=== PATIENT | female | born 1955 | race Caucasian/White ===

== ENCOUNTER → 2021-07-10 09:54 | Outpatient (CLI) | payer OTHER, SELFPAY ==
--- NOTE | ~2021-07-10 | MM_ITS ---
EXAMINATION: MM screening carmita BI w annita HISTORY: Screening TECHNIQUE: Craniocaudal and mediolateral oblique 3-D tomosynthesis images were obtained and synthetic 2-D images were generated. CAD analysis was submitted and interpreted. COMPARISON: No prior mammogram is available for comparison at this institution. BREAST PARENCHYMAL COMPOSITION: The breasts are heterogenously dense, which may obscure small masses FINDINGS: There is no evidence of suspicious mass, calcification, or architectural distortion to sugg est malignancy in either breast. There has been no suspicious interval change. IMPRESSION: 1. No mammographic evidence of malignancy. 2. Recommend routine screening mammography in one year. BI-RADS Category 1: Negative Reviewed, dictated and finalized at location A.
--- NOTE | ~2021-07-10 | DEXA_ITS ---
Bone Density Report Name: Camila Layton Age: 66 Sex: Female Ethnicity: White Date of : 1955 Indication: postmenopausal; screening for osteoporosis; Referring Provider: CLARY, AMANDA May Study: Bone densitometry was performed. Exam Date: July 10, 2021 Accession number: [id number] Bone Density: Region BMD T-score Z-score Classification AP Spine (L1, L2) 1.065 0.8 2.4 Normal Femoral Neck (Left) 0.582 -2.4 -0.9 Osteopenia Total Hip (Left) 0.660 -2.3 -1.1 Osteopenia Femoral Neck (Right) 0.604 -2.2 -0.7 Osteopenia Total Hip (Right) 0.656 -2.3 -1.2 Osteopenia Total Hip Mean 0.658 -2.3 -1.2 Osteopenia World Health Organization criteria for BMD impression classify patients as: Normal (T-score at or above -1.0), Osteopenia (T-score between -1.0 and -2.5), or Osteoporosis (T-score at or below -2.5). 10-year Fracture Risk(1): Major Osteoporotic Fracture 12% Hip Fracture 3.6% Reported Risk Factors: [place] (), Neck BMD=0.582, BMI=29.5, smoking (1) FRAX(R) Version 3.08. Fracture probability calculated for an untreated patient. Fracture probability may be lower if the patient has received treatment. Clinical Information Provided by Patient: Smokes Has used the following medications: Vitamin D Patient maximum height was 60.5 Menopause Age: 40 No regular weight bearing exercise Does not regularly consume dairy products Drinks caffeinated beverages Onset of menses at age 11 Number of children 0 Impression: The patient has low bone mass, based on the Left Femoral Neck T-score. The patient has an estimated ten-year risk of hip fracture of 3.6% and an estimated ten-year risk of major fracture of 12%, based on the WHO FRAX algorithm. The patient has risk factors, including: smoking. Discussion: BONE DENSITY IS LOW AT ONE OR MORE SKELETAL SITES. THE PATIENT'S BMD AND CLINICAL RISK FACTORS CONTRIBUTE TO THIS PATIENT'S INCREASED RISK OF FRACTURE. This patient's lowest T-score is low at one or more skeletal sites. It meets the World Health Organization's (WHO) criteria for ?low bone mass? (T-score between -1.0 and -2.5). The patient's 10-year risk of hip fracture as calculated by FRAX exceeds the threshold where pharmacological therapy is recommended by the National Osteoporosis Foundation (NOF). However, all treatment decisions require clinical judgment and consideration of individual patient factors, including patient preferences, comorbidities, previous drug use, risk factors not captured in the FRAX model (e.g., frailty, falls, vitamin D deficiency, increased bone turnover, interval significant decline in bone density) and possible under or overestimation of fracture risk by FRAX. The patient should follow a healthful lifestyle (good nutrition with adequate calcium and vitamin D, and appropriate
== END ==
PROVIDERS: PCP Internal Medicine; Visit Provider Internal Medicine
DX: Z12.31 Encounter for screening mammogram for malignant neoplasm of breast (principal); Z78.0 Asymptomatic menopausal state; M85.89 Other specified disorders of bone density and structure, multiple sites
CPT/HCPCS: 77063; 77067; 77080

== ENCOUNTER 2021-08-19 12:21 | Outpatient (CLI) | payer OTHER, SELFPAY ==
--- NOTE | ~2021-08-19 | US_ITS ---
EXAMINATION: US carotid duplex BI DATE: 08/19/2021 13:03 INDICATION: Chronic artery stenosis post prior left carotid endarterectomy. TECHNIQUE: Grayscale, color Doppler, and pulsed Doppler images of the cervical carotid arteries were obtained. The degree of vessel stenosis is placed in one of the following categories: normal, <50%, 5 0-69%, >=70% but less than near-occlusion, near-occlusion, or total occlusion. Note that percent sten osis relative to normal distal artery lumen diameter is indirectly measured from velocity measurement s as described by Leo, et al. Radiology 2003; 229:340-346. COMPARISON: None. FINDINGS: RIGHT: The right common carotid artery (CCA) peak systolic velocity (PSV) is 93 cm/s with high resistance wa veform. The right internal carotid artery (ICA) remains occluded with no internal flow on color Doppl er. The external carotid artery (ECA) PSV is 168 cm/s. There is antegrade flow in the right vertebral artery. LEFT: The left CCA PSV is 98 cm/s. The left ICA PSV is 152 cm/s. The left ICA end-diastolic velocity (EDV) is 31 cm/s. The left ICA/CCA PSV ratio is 1.6. Grayscale and color Doppler images yield an estimate o f 50-69% diameter reduction from plaque in the ICA. The ECA PSV is 152 cm/s. There is antegrade flow in the left vertebral artery. IMPRESSION: 1. 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 2. 50-69% stenosis in the left internal carotid artery. Reviewed, dictated and finalized at location A.
== END 2021-08-19 12:22 | disposition home or self-care (01) ==
PROVIDERS: PCP Internal Medicine; Visit Provider Internal Medicine
DX: I65.23 Occlusion and stenosis of bilateral carotid arteries (principal)
CPT/HCPCS: 93880

== ENCOUNTER 2023-04-16 11:16 | Outpatient (CLI) | payer MEDICARE, OTHER, SELFPAY ==
[2023-04-16 11:51] LABS: Basophils Absolute Auto 0.1 K/mm3 (0.0-0.1); Basophils Percent Auto 0.9 % (0.2-1.2); Eosinophils Absolute Auto 0.7 K/mm3 (0-0.3); Hematocrit 40.5 % (37.0-47.0); Hemoglobin 12.8 g/dL (12.0-15.0); Immature Granulocyte Absolute 0.01 K/mm3 (0.00-0.031); Immature Granulocyte Percent A 0.2 % (0-0.5); Lymphocytes Absolute Auto 1.02 K/mm3 (0.9-3.2); Lymphocytes Percent Auto 18.4 % (18.3-44.2); Mean Corpuscular HGB Conc 31.6 g/dl (32-36); Mean Corpuscular Hemoglobin 29.8 pg (26-34); Mean Corpuscular Volume 94.4 fl (80-100); Mean Platelet Volume 10.1 fl (7.4-10.4); Monocytes Absolute Auto 0.4 K/mm3 (0.1-0.6); Neutrophils Absolute Auto 3.4 K/mm3 (1.3-6.7); Neutrophils Percent Auto 60.5 % (45.5-73.1); Platelet Count Result 185 k/mm3 (150-375); Red Blood Count 4.29 M/mm3 (4.2-5.4); Red Cell Distribution Width 12.5 % (11.5-14.5); White Blood Count 5.5 K/mm3 (4.5-10.0)
[2023-04-16 12:36] LABS: Iron 42 ug/dL (37-170)
[2023-04-16 12:37] LABS: Alanine Aminotransferase 13 U/L (6-35); Albumin Level 4.3 g/dL (3.5-5.1); Alkaline Phosphatase 74 U/L (38-126); Anion Gap 13 mmol/L (8-16); Aspartate Amino Transferase 17 U/L (14-36); Bilirubin,Total 0.3 mg/dL (0.2-1.3); Blood Urea Nitrogen 61 mg/dL (7-17); Calcium 8.4 mg/dL (8.4-10.2); Carbon Dioxide 22 mmol/L (22-30); Chloride 103 mmol/L (98-107); Estimated Glomerular Filt Rate 10; Glucose 91 mg/dL (65-110); Potassium 4.3 mmol/L (3.4-5.0); Sodium 138 mmol/L (137-145)
[2023-04-16 12:51] LABS: Percent Iron Saturation 12 % (20-50)
[2023-04-21 08:51] LABS: Methylmalonic Acid 249 nmol/L (87-318)
== END 2023-04-16 11:17 | disposition home or self-care (01) ==
LOC: ANHLAB 11:20
PROVIDERS: Visit Provider Internal Medicine Hematology & Oncology
DX: D64.9 Anemia, unspecified (principal)
CPT/HCPCS: 36415; 80053; 82728; 83540; 83550; 83921; 85025

== ENCOUNTER 2023-05-01 08:53 | Outpatient (CLI) | payer MEDICARE, OTHER, SELFPAY ==
[2023-05-01 09:09] LABS: Hematocrit 23.5 % (37.0-47.0); Hemoglobin 7.5 g/dL (12.0-15.0); Mean Corpuscular HGB Conc 31.9 g/dl (32-36); Mean Corpuscular Hemoglobin 29.9 pg (26-34); Mean Corpuscular Volume 93.6 fl (80-100); Platelet Count Result 272 k/mm3 (150-375); Red Blood Count 2.51 M/mm3 (4.2-5.4); Red Cell Distribution Width 12.7 % (11.5-14.5); White Blood Count 12.1 K/mm3 (4.5-10.0)
== END 2023-05-01 08:54 | disposition home or self-care (01) ==
LOC: ANHLAB 08:55
PROVIDERS: PCP Internal Medicine; Visit Provider Internal Medicine Hematology & Oncology
DX: D64.9 Anemia, unspecified (principal)
CPT/HCPCS: 36415; 85027

== ENCOUNTER 2023-12-08 03:32 | Day surgery (SDC) | payer MEDICARE, OTHER, SELFPAY ==
[2023-11-24 11:19] VITALS: BMI 25.0
--- NOTE | 2023-12-04 10:44 | SUR.PREOP ---
Patient called regarding upcoming procedure. Voicemail message left regarding appointment times.
[2023-12-08 08:51] VITALS: BP 177/54; PULSE 63; RESP 17; TEMP 36.3; O2SAT 99; BMI 25.5
[2023-12-08] MEDS: SODIUM CHLORIDE 0.9% IV 500 ML BAG IRRIGATION (09:01)
--- NOTE | 2023-12-08 09:07 | WPDANESEPPF ---
Anes - Initial Pre Proc Eval Procedure: Operation Date: 12/08/23 10:00 Proposed Procedures p Esophagogastroduodenoscopy - Paramjit Gustafson MD Date/Time: 12/08/23 09:07 Surgeon: Paramjit Gustafson MD Pre Op Diagnosis: Gastrointestinal hemorrhage,unspecified Patient Data Age: 68 Gender: F Height: 1.52 m Weight: 59.3 kg Last Vital Signs Temp 97.3 F L 12/08/23 08:51 Pulse 63 12/08/23 08:51 Resp 17 12/08/23 08:51 BP 177/54 H 12/08/23 08:51 Pulse Ox 99 12/08/23 08:51 O2 Del Method Room Air 12/08/23 08:51 Allergies Allergy/AdvReac Type Severity Reaction Status Date / Time morphine Allergy Mild Hypotension Verified 12/08/23 08:48 valsartan Allergy Mild Dyspnea / Verified 12/08/23 08:48 SOB clarithromycin Allergy Unknown Unknown Verified 12/08/23 08:48 iodine Allergy Unknown Hives Verified 12/08/23 08:48 hydralazine Allergy Dyspnea / Verified 12/08/23 08:48 SOB Home Medications Medication Instructions Recorded Confirmed Type amlodipine 10 mg BYMOUTH DAILY 05/11/23 12/08/23 History aspirin 81 mg capsule 81 mg PO DAILY 05/11/23 12/08/23 History furosemide 40 mg tablet (Lasix) 40 mg PO DAILY 05/11/23 12/08/23 History metoprolol tartrate 100 mg tablet 100 mg DAILY 05/11/23 12/08/23 History alprazolam 0.5 mg tablet 0.5 mg PO DAILY PRN Anxiety 11/24/23 12/08/23 History doxazosin 4 mg tablet 4 mg PO DAILY 11/24/23 12/08/23 History telmisartan 80 mg tablet 80 mg PO DAILY 11/24/23 12/08/23 History Patient hx anesthesia problems: none Family hx anesthesia problems: none Results Review: All pre-operative results and documents have been reviewed as part of the pre-operative evaluation. [facility] Family History Family History (Updated 07/27/14 @ 07:13 by DOCTOR UNKNOWN) Mother Hypertension Cerebrovascular accident Family history of malignant neoplasm of cervix Family history of coronary artery disease Social History Social History Smoking packs per day: 1 Smoking cigarettes per day: 20.0 Years smoked: 50 Smoking pack-years: 50.00 Smoking status: Current every day smoker Tobacco type: cigarettes Second hand tobacco smoke exposure: Yes Smoking end date: 01/29/23 Alcohol intake: never Substance use type: does not use Living arrangements: with family Spiritual care concerns: No Anes - Eval Final PreProcedure Day of Procedure 12/08/23 09:07 Patient weight: normal Heart: regular rate and rhythm Lungs: clear to auscultation Airway: Mallampati scale class II Neurological: alert and oriented Last oral intake: >/= 8 hours ASA classification: III Emergent: no Anesthetic plan: proceed Anesthesia type and monitoring: general GIVS and standard monitoring Results Review: All pre-operative results and documents have been reviewed as part of the pre-operative evaluation. Informed Consent: The patient's anesthetic plan and its attendant risks and benefits were discussed with the patient/family/POA. Questions were solicited and answers provided to the satisfaction of the patient/family/POA.
[2023-12-08] MEDS: SODIUM CHLORIDE 0.9% IV 500 ML 10 ML IV CONT (09:20)
--- NOTE | 2023-12-08 09:21 | PM.HPGS ---
History of Present Illness History of Present Illness Consent: Risks, benefits, and alternatives have been discussed and questions answered. Patient agrees to proceed with procedure. Chief complaint: Gastrointestinal hemorrhage,unspecified Narrative: Camila Layton is a 68 year old female with anemia, she is not longer on plavix just aspirin (noted dark stools in the past), she is not using ppi. Last colonoscopy 2017 Review of Systems Constitutional: Constitutional: Denies headache(s) and Denies weakness Eyes: Eyes: Denies blurry vision ENT: Reports Normal hearing present, Denies headache(s) and Denies neck pain Cardiovascular: Cardiovascular: Denies chest pain and Denies dyspnea Respiratory: Respiratory: Denies dyspnea Gastrointestinal: Gastrointestinal: Reports no additional gastrointestinal complaints Genitourinary: Genitourinary: Denies dysuria Musculoskeletal: Musculoskeletal: Denies neck pain Integumentary/Breasts: Skin/Breast: Denies dry skin Neurologic: Reports Normal hearing present, Denies headache(s) and Denies weakness Psychiatric: Psychiatric: Denies anxiety Endocrine: Endocrine: Denies change in body appearance Hematologic/Lymphatic: Hematologic/Lymphatic: Denies easy bleeding Allergic/Immunologic: Allergic/Immunologic: Denies urticaria PMFSH Family History Family History (Updated 07/27/14 @ 07:13 by DOCTOR UNKNOWN) Mother Hypertension Cerebrovascular accident Family history of malignant neoplasm of cervix Family history of coronary artery disease Social History Social History Smoking packs per day: 1 Smoking cigarettes per day: 20.0 Years smoked: 50 Smoking pack-years: 50.00 Smoking status: Current every day smoker Tobacco type: cigarettes Second hand tobacco smoke exposure: Yes Smoking end date: 01/29/23 Alcohol intake: never Substance use type: does not use Living arrangements: with family Spiritual care concerns: No Meds Home Medications and Allergies Home Medications Medication Instructions Recorded Confirmed Type amlodipine 10 mg BYMOUTH DAILY 05/11/23 12/08/23 History aspirin 81 mg capsule 81 mg PO DAILY 05/11/23 12/08/23 History furosemide 40 mg tablet (Lasix) 40 mg PO DAILY 05/11/23 12/08/23 History metoprolol tartrate 100 mg tablet 100 mg DAILY 05/11/23 12/08/23 History alprazolam 0.5 mg tablet 0.5 mg PO DAILY PRN Anxiety 11/24/23 12/08/23 History doxazosin 4 mg tablet 4 mg PO DAILY 11/24/23 12/08/23 History telmisartan 80 mg tablet 80 mg PO DAILY 11/24/23 12/08/23 History Allergies Allergy/AdvReac Type Severity Reaction Status Date / Time morphine Allergy Mild Hypotension Verified 12/08/23 08:48 valsartan Allergy Mild Dyspnea / Verified 12/08/23 08:48 SOB clarithromycin Allergy Unknown Unknown Verified 12/08/23 08:48 iodine Allergy Unknown Hives Verified 12/08/23 08:48 hydralazine Allergy Dyspnea / Verified 12/08/23 08:48 SOB Vital Signs Vital Signs - 24 hr 12/08/23 08:51 Temperature 97.3 F L Pulse Rate 63 Respiratory Rate 17 Blood Pressure 177/54 H Pulse Oximetry 99 Oxygen Delivery Room Air Exam Const: General: comfortable and no acute distress HENMT: Face/Nose/Sinus: Normal nares present Eyes: General: appearance normal, both eyes and all related structures Neck: Neck: no JVD Resp: Auscultation: clear to auscultation bilaterally Cardio: Rate: regular rate Rhythm: regular rhythm GI: Inspection: non-distended GI Palp: Yes Soft to palpation Skin: General skin exam: normal color Neuro: General: gait normal Speech: normal speech Extrem: General: normal to inspection Psych: Mental Status: mental status grossly normal Assessment and Plan Assessment and plan (1) Anemia in CKD (chronic kidney disease): Code(s): N18.9 - Chronic kidney disease, unspecified; D63.1 - Anemia in chronic kidney disease Status: Acute Assessment and Plan: egd to assess if source of
[2023-12-08 09:36] VITALS: BP 153/64; PULSE 61; RESP 22; O2SAT 97
[2023-12-08 09:46] VITALS: BP 165/69; PULSE 62; RESP 19; O2SAT 98
[2023-12-08 09:56] VITALS: BP 172/71; PULSE 62; RESP 21; O2SAT 99
== END 2023-12-08 10:02 | disposition home or self-care (01) ==
PROVIDERS: PCP Internal Medicine; Visit Provider Internal Medicine Gastroenterology
PROC: 0DJ08ZZ Inspection of Upper Intestinal Tract, Via Natural or Artificial Opening Endoscopic (ICD-10-PCS; CPT 43235; principal; 2023-12-08 10:00)
DX: K29.50 Unspecified chronic gastritis without bleeding (principal); N18.6 End stage renal disease; D63.1 Anemia in chronic kidney disease; Z87.891 Personal history of nicotine dependence; Z79.82 Long term (current) use of aspirin
CPT/HCPCS: 43239; 88305; J2704; J7040

== ENCOUNTER 2024-09-09 10:04 | Outpatient (CLI) | payer MEDICARE, OTHER, SELFPAY ==
--- NOTE | ~2024-09-09 | US_ITS ---
EXAMINATION: US carotid duplex BI DATE: 09/09/2024 11:38 INDICATION: Carotid artery occlusion and stenosis. TECHNIQUE: Grayscale, color Doppler, and pulsed Doppler images of the cervical carotid arteries were obtained. The degree of vessel stenosis is placed in one of the following categories: normal, <50%, 5 0-69%, >=70% but less than near-occlusion, near-occlusion, or total occlusion. Note that percent sten osis relative to normal distal artery lumen diameter is indirectly measured from velocity measurement s as described by Loe, et al. Radiology 2003; 229:340-346. COMPARISON: Ultrasound 08/19/2021 FINDINGS: RIGHT: The right common carotid artery (CCA) peak systolic velocity (PSV) is 73 cm/s. The right internal car otid artery (ICA) PSV is 87 cm/s. The right ICA end-diastolic velocity (EDV) is 3 cm/s. The right ICA /CCA PSV ratio is 1.2. Grayscale and color Doppler images yield an estimate of <50% diameter reductio n from plaque in the ICA. There is antegrade flow in the right vertebral artery. LEFT: The left CCA PSV is 75 cm/s. The left ICA PSV is 131 cm/s. The left ICA EDV is 7 cm/s. The left ICA/C CA PSV ratio is 1.7. Grayscale and color Doppler images yield an estimate of >=50% diameter reduction from plaque in the ICA. There is antegrade flow in the left vertebral artery. IMPRESSION: 1. <50% stenosis in the right internal carotid artery. Note that the prior ultrasound demonstrated to janell occlusion of the internal carotid artery suggesting that the artery may be mislabeled on the curr ent exam. Consider neck CTA. 2. 50-69% stenosis in the left internal carotid artery. Reviewed, dictated and finalized at location A. IMPRESSION: 1. <50% stenosis in the right internal carotid artery. Note that the prior ultr asound demonstrated total occlusion of the internal carotid artery suggesting t hat the artery may be mislabeled on the current exam. Consider neck CTA. 2. 50-69% stenosis in the left internal carotid artery.
== END 2024-09-09 10:05 | disposition home or self-care (01) ==
PROVIDERS: PCP Internal Medicine; Visit Provider Internal Medicine
DX: I65.22 Occlusion and stenosis of left carotid artery (principal)
CPT/HCPCS: 93880

== ENCOUNTER 2024-09-12 12:23 | Outpatient (CLI) | payer MEDICARE, OTHER, SELFPAY ==
--- NOTE | ~2024-09-12 | CT_ITS ---
CT Scan of the Chest without Contrast: Clinical Indication: Lung cancer screening, nicotine dependence Technique: Contiguous sections were acquired throughout the chest without intravenous contrast. Dose reduction technique was used on this scan by utilizing automated exposure control and iterative recon struction technique. The dose-length product (DLP) was 100.64 mGy-cm. Findings: There is no evidence of any significant mediastinal, hilar or axillary lymphadenopathy. There are ath erosclerotic calcifications of the aorta and coronary arteries. There is no evidence of pleural or pericardial effusion. The lungs are clear. No pulmonary nodules or infiltrates are noted. Images through the upper abdomen reveal moderate upper abdominal ascites. Impression: Lung RADS 1: Negative. 12 month follow-up screening CT advised. Reviewed, dictated and finalized at location . Impression: Lung RADS 1: Negative. 12 month follow-up screening CT advised.
== END 2024-09-12 12:24 | disposition home or self-care (01) ==
PROVIDERS: PCP Internal Medicine; Visit Provider Internal Medicine
DX: Z12.2 Encounter for screening for malignant neoplasm of respiratory organs (principal); Z87.891 Personal history of nicotine dependence
CPT/HCPCS: 71271

== ENCOUNTER 2024-09-22 12:38 | Outpatient (CLI) | payer MEDICARE, OTHER, SELFPAY ==
--- NOTE | 2024-09-22 | ECHO_ITS ---
Patient Info Name: Camila Layton Age: 69 years : 1955 Gender: Female Ht: 60 in Wt: 133 lbs BSA: 1.61 m2 HR: 67 bpm BP: 198 / 82 mmHg Heart Rhythm: Sinus Rhythm Technical Quality: Fair Exam Date: 09/22/2024 1:08 PM Exam Location: Echo Lab Patient Status: Outpatient Admit Date: 09/22/2024 Staff Ordering Physician: Aristides, Vishal May MD Spin Table Operator: Jessica Mar RDCS Attending Provider: Aristides, Vishal May MD Referring Physician: Aristides LAUREN; Exam Type: CA echo doppler color flow Study Info Indications R01.1 - Cardiac murmur, unspecified Complete two-dimensional, color flow and Doppler transthoracic echocardiogram is performed. Strain analysis performed. Summary 1. Left ventricular chamber dimension is normal. 2. Left ventricular systolic function is normal, estimated at 55-60%. 3. There is moderately increased left ventricular wall thickness. 4. The left ventricular diastolic function is grade I diastolic dysfunction. 5. Right ventricular systolic function is normal. 6. Left atrial chamber dimension is moderately enlarged. 7. There is mild mitral valve regurgitation. Left Ventricle Left ventricular chamber dimension is normal. Left ventricular systolic function is normal, estimated at 55-60%. There is moderately increased left ventricular wall thickness. The left ventricular diastolic function is grade I diastolic dysfunction. Global longitudinal strain is abnormal at -14 %. Right Ventricle Right ventricular chamber dimension is normal. Right ventricular systolic function is normal. Left Atria Left atrial chamber dimension is moderately enlarged. Right Atria Right atrial chamber dimension is normal. Atrial Septum Intact interatrial septum visualized by color flow imaging. Aortic Valve The aortic valve is trileaflet. There is mild aortic valve sclerosis. There is no aortic valve stenosis. There is no aortic valve regurgitation. Pulmonic Valve The pulmonic valve is not well visualized. There is no pulmonic regurgitation. Mitral Valve There is mild mitral valve regurgitation. Tricuspid Valve There is trace tricuspid valve regurgitation. Pericardium/Pleural There is no pericardial effusion. Inferior Vena Cava Normal inferior vena cava with >50% collapse upon inspiration consistent with normal right atrial pressure, 3 mmHg. Aorta The aortic root size at the sinus of Valsalva is normal. Left Ventricular Outflow Tract Name Value Normal LVOT 2D LVOT Diameter 1.9 cm LVOT Doppler LVOT Peak Gradient 5 mmHg LVOT Mean Gradient 3 mmHg LVOT VTI 28 cm LVOT VTI/AV VTI Ratio 1.0 LVOT Stroke Volume 77 ml LVOT CO 5.0 l/min LVOT CI 3.1 l/min/m2 Pulmonic Valve Name Value Normal RVOT Doppler RVOT Peak Gradient 3 mmHg PV Doppler PV Peak Gradient 4 mmHg Mitral Valve Name Value Normal MV Doppler MV [place] 466 cm/s2 MV PHT 64 ms MV Area (PHT) 3.4 cm2 4.0-5.0 MV Diastolic Function MV E Peak Velocity 103 cm/s MV A Peak Velocity 130 cm/s MV E/A 0.8 MV Decel Time 220 ms Tricuspid Valve Name Value Normal TV Regurgitation Doppler TR Peak Velocity 173 cm/s TR Peak Gradient 12 mmHg Estimated PAP/RSVP RA Pressure 3 mmHg <=5 PA Systolic Pressure 15 mmHg <36 RV Systolic Pressure 15 mmHg <36 Aorta Name Value Normal Ascending Aorta Ao Root Diameter (MM) 2.8 cm Ao Root Diam Index (MM) 1.7 cm/m2 Aortic Valve Name Value Normal AV Doppler AV Peak Velocity 122 cm/s AV Peak Gradient 6 mmHg AV Mean Gradient 4 mmHg AV VTI 28 cm AV Area (Cont Eq VTI) 2.8 cm2 >=3.0 AV Area (Cont Eq José) 2.6 cm2 AV Regurgitation 2D LVOT Area 2.8 cm2 Ventricles Name Value Normal LV Dimensions 2D/MM IVS Diastolic Thickness (2D) 1.3 cm 0.6-1.0 IVS Diastole Thickness (MM) 1.0 cm 0.6-0.9 LVID Diastole (2D) 4.1 cm 3.8-5.2 LVID Diastole (MM) 5.2 cm 3.8-5.2 LVIW Diastolic Thickness (2D) 1.1 cm 0.6-0.9 LVIW Diastolic Thickness (MM) 0.7 cm 0.6-0.9 LVID Systole (2D) 2.5 cm 2.2-3.5 LVID Systole (MM) 3.7 cm 2.2-3.5 LVOT Diameter 1.9 cm LV Mass (2D Cubed) 179.53 g 67.00-162.00 LV Mass Index (2D Cubed) 111 g/m2 43-95 Relative Wall Thickness (2D) 0.56 LV Mass (MM Cubed) 150.89 g 67.00-162.00 LV Mass Index (MM Cubed) 93 g/m2 43-95 Relative Wall Thickness (MM) 0.26 LV Fractional Shortening/Ejection Fraction 2D/MM LV Fractional Shortening (2D) 38 % 27-45 LV Fractional Shortening (MM) 29 % 27-45 LV EF (MM Teicholz) 55 % 54-74 LV EF (2D Teicholz) 68 % 54-74 LV Diastolic Volume (4C MOD) 58 ml LV EF (4C MOD) 58 % LV Diastolic Volume (2C MOD) 41 ml LV EF (2C MOD) 55 % LV Diastolic Volume (BP MOD) 49 ml 46-106 LV Diastolic Volume Index (BP MOD) 30 ml/m2 29-61 LV Systolic Volume (BP MOD) 21 ml 14-42 LV Systolic Volume Index (BP MOD) 13 ml/m2 8-24 LV EF (BP MOD) 56 % 54-74 LV Diastolic Length (4C) 7.5 cm LV Systolic Length (4C) 7.0 cm LV Stroke Volume (4C MOD) 34 ml Atria Name Value Normal LA Dimensions LA Dimension (MM) 3.6 cm 2.7-3.8 LA Volume (4C A-L) 65 ml LA Volume (BP A-L) 66 ml RA Dimensions RA Area (4C) 13.3 cm2 <=18.0 EchoPAC Name Value Normal AutoEF LVCO_BiP_Q (Hwxy1HQY) 2.9 l/min LVEF_BiP_Q (Twzk1VYF) 58 % LVSV_BiP_Q (Jvmg5KJP) 44 ml LVVED_BiP_Q (Dkwu1SRH) 75 ml LVVES_BiP_Q (Fuir1SRM) 32 ml HR_4Ch_Q (Mnqj2RLU) 68 bpm LVCO_4Ch_Q (Zaud3PWX) 2.5 l/min LVEF_4Ch_Q (Nnai7MPG) 51 % LVLd_4Ch_Q (Jumn6EIS) 7.5 cm LVLs_4Ch_Q (Zrlv2NLZ) 6.7 cm LVSV_4Ch_Q (Eack9UTG) 37 ml LVVED_4Ch_Q (Zlzl6LZK) 73 ml LVVES_4Ch_Q (Uuqg3QYQ) 35 ml HR_2Ch_Q (Xzqb1UCN) 65 bpm LVCO_2Ch_Q (Suij1UWA) 3.3 l/min LVEF_2Ch_Q (Juvo0GEK) 64 % LVLd_2Ch_Q (Csia0ERM) 7.6 cm LVLs_2Ch_Q (Hnat4GUH) 6.9 cm LVSV_2Ch_Q (Gpdp1GLX) 50 ml LVVED_2Ch_Q (Yhzc8HFR) 78 ml LVVES_2Ch_Q (Vmag0AGO) 28 ml CALE AA peak sys SL (AWMA) 20.5 % AAS peak sys SL (AWMA) 15.4 % AI peak sys SL (AWMA) 25.4 % AL peak sys SL (AWMA) 15.8 % AP peak sys SL (AWMA) 16.9 % peak sys SL (AWMA) 23.4 % AVC (AWMA) 434 ms BA peak sys SL (AWMA) 5.2 % BAS peak sys SL (AWMA) 14.1 % BI peak sys SL (AWMA) 18.8 % BL peak sys SL (AWMA) 2.0 % BP peak sys SL (AWMA) 21.1 % BS peak sys SL (AWMA) 6.7 % G peak SL(A2C) (AWMA) 15.0 % G peak SL(A4C) (AWMA) 11.9 % G peak SL(APLAX) (AWMA) 15.5 % G peak SL(Avg) (AWMA) 14.1 % MA peak sys SL (AWMA) 2.6 % MAS peak sys SL (AWMA) 12.7 % WI peak sys SL (AWMA) 16.7 % ML peak sys SL (AWMA) 3.5 % MP peak sys SL (AWMA) 11.5 % MS peak sys SL (AWMA) 18.6 % Report Signatures
== END 2024-09-22 12:39 | disposition home or self-care (01) ==
LOC: ANHCARD 12:40
PROVIDERS: PCP Internal Medicine; Visit Provider Internal Medicine
DX: I51.89 Other ill-defined heart diseases (principal); I51.7 Cardiomegaly; I34.0 Nonrheumatic mitral (valve) insufficiency; R01.1 Cardiac murmur, unspecified
CPT/HCPCS: 93306

== ENCOUNTER 2025-03-13 09:17 | Outpatient (CLI) | payer MEDICARE, OTHER, SELFPAY ==
--- NOTE | ~2025-03-13 | MMUS_ITS ---
EXAMINATION: MM diagnostic carmita BI w annita, US breast RT limited HISTORY: Palpable right breast mass TECHNIQUE: Additional 3-D tomosynthesis images of the breasts were performed and synthetic 2-D images were generated. CAD analysis was submitted and interpreted. High resolution Limited right breast ult rasound was performed. COMPARISON: 07/10/2021 BREAST PARENCHYMAL COMPOSITION: Dense: The breasts are heterogeneously dense, which may obscure small masses FINDINGS: MAMMOGRAPHIC FINDINGS: There is a new mass in the upper outer quadrant of the right breast, middle third. The margins are ir regular. Mass measures approximately 1.9 x 1.4 cm on MLO view. No suspicious calcifications or ness ectural distortion. There is no mammographic evidence for malignancy in the left breast. ULTRASOUND: Limited right breast ultrasound: At 10:00, 4 cm from the nipple there is an irregular shaped hypoecho ic mass with parallel orientation, no significant posterior features and no significant internal vasc ularity. This mass measures 2.5 x 2 x 1.4 cm and corresponds to the mammographic finding. IMPRESSION: 1. New 2.5 cm right breast mass located at 10:00, 4 cm from the nipple. 2. Ultrasound-guided right breast biopsy recommended. BI-RADS category 4, suspicious findings. Reviewed, dictated and finalized at location B. IMPRESSION: 1. New 2.5 cm right breast mass located at 10:00, 4 cm from the nipple. 2. Ultrasound-guided right breast biopsy recommended. BI-RADS category 4, suspicious findings.
--- NOTE | ~2025-03-13 | DEXA_ITS ---
Bone Density Report Name: SAIDA HAMILTON Age: 70 Sex: Female Ethnicity: White Date of : 1955 Indication: postmenopausal; screening for osteoporosis; end stage renal disease; Referring Provider: CLARY, AMANDA May Study: Bone densitometry was performed. Exam Date: March 13, 2025 Accession number: [id number] Bone Density: Region BMD T-score Z-score Classification AP Spine(L1-L4) 1.183 1.2 3.2 Normal Femoral Neck (Left) 0.515 -3.0 -1.3 Osteoporosis Total Hip (Left) 0.589 -2.9 -1.5 Osteoporosis Femoral Neck (Right) 0.564 -2.6 -0.9 Osteoporosis Total Hip (Right) 0.540 -3.3 -1.9 Osteoporosis Total Hip Mean 0.564 -3.1 -1.7 Osteoporosis World Health Organization criteria for BMD impression classify patients as: Normal (T-score at or above -1.0), Osteopenia (T-score between -1.0 and -2.5), or Osteoporosis (T-score at or below -2.5). 10-year Fracture Risk: FRAX not reported because: Some T-score for Spine Total or Hip Total or Femoral Neck at or below -2.5 Clinical Information Provided by Patient: Has the following medical conditions: End stage renal disease Patient maximum height was 60 Menopause Age: 40 No regular weight bearing exercise Drinks caffeinated beverages Onset of menses at age 11 Number of children 0 Impression: The patient has osteoporosis, based on the Right Total Hip T-score. Discussion: INCREASED RISK OF FRACTURE. BONE DENSITY IS UNDESIRABLY LOW AT ONE OR MORE SKELETAL SITES, CONSISTENT WITH POSTMENOPAUSAL OSTEOPOROSIS. This patient's lowest T-score meets the World Health Organization's (WHO) criteria for osteoporosis at one or more sites (T-score -2.5 or below). In untreated patients, the risk of osteoporotic fracture increases approximately two-fold for each 1.0 SD decrease in T-score. Low bone density is not the only risk factor for fracture; also consider factors such as patient's age, frailty or poor health, risk of falling, risk of injury, previous osteoporotic fracture, family history of osteoporosis, cigarette smoking, low body weight, etc. Not everyone with low bone mineral density has osteoporosis; osteomalacia and other metabolic bone disorders should also be considered. Patients who have osteoporosis should be evaluated for specific diseases and conditions (secondary causes) that may cause or contribute to bone loss. The [place] [employer]ocrinologists (AACE) and National Osteoporosis Foundation (NOF) recommend pharmacologic intervention for all postmenopausal women whose T-score is in this range. The patient should follow a healthful lifestyle (good nutrition with adequate calcium and vitamin D, and appropriate weight-bearing exercise). Follow-Up: Consider a repeat BMD and Vertebral Fracture Assessment (VFA) exam in 2 years or sooner if medically necessary, to reassess this patient's status. Reported by: MARY on 03/13/2025 9:56:00 AM. Reviewed, dictated and finalized at location A. MAGUE
--- OUTSIDE RECORDS SUMMARY | 2025-03-13 10:04 | XMS_ITS | Data Portability ---
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 Not available 05/19/2023 14:27:52 Plan of Treatment Reminders Order Date Submit Date Provider Last Modified By Organization Details Last Modified Time Details Appointments Any 15 2024 01:30P M Amanda Means MD Not available Not available Not available Lab None recorded. Referral EGD referral 2022 023 [place] [id number] Paramjit mckeon MD, [address], [address], [place], [address], 12/02/2023 10:32:26 Procedures None recorded. Surgeries None recorded. Imaging MAMMO, screening , digital, bilateral 2023 024 [email or web address] [facility], [address], [address], [place], [address], 08/11/2024 09:59:48 bone density [address] [facility], [address], [address], [place], [address], 08/25/2024 08:43:42 US, duplex, carotid artery [address] [facility], [address], [address], [place], [address], 08/11/2024 09:59:49 LDCT, chest, for lung cancer screening [address] [facility], [address], [place], [address], 08/11/2024 09:59:48 US, echocardi ogram [address] ([facility]), [address], [place], [address], 08/11/2024 09:59:49 LDCT, chest, for lung cancer screening [address] [place] [address] Imaging, [address], [address], [place], [address], 03/30/2024 09:11:49 MAMMO, screening , digital, bilateral 2023 024 5 [facility], [address], [address], [place], [address], 04/06/2024 09:03:09 US, duplex, carotid artery 2023 024 [email or web address] [id number] [facility], [address], [place], [address], 04/06/2024 09:03:09 bone density 2023 024 [email or web address] [facility], [address], [place], [address], 04/06/2024 08:03:22 MAMMO, screening , digital, bilateral 2022 023 [email or web address] [facility], [address], [address], [place], [address], 12/21/2023 14:03:17 bone density 2022 023 [email or web address] [facility] [address], [facility], [place], [address], 12/21/2023 14:03:17 Medication Orders alprazola m 0.5 mg tablet 2023 024 [facility], [address] [place] [address], [id number], 03/23/2024 12:24:43 triamcino lone acetonide 0.5 % topical cream 2022 023 [email or web address] [facility] [address], [address] [place] [address], [id number], 03/23/2024 12:05:37 Patient TargetsNo targets recorded. Patient Instructions Encounter Date Encounter Id Patient Instructions Last Modified By Organization Details Last Modified Time 05/28/2023 [id number] Thank you for yo ur visit to our office today. We would like to request that you reach out to your referring or previous provider and request that they send us a Summary of Care in electronic form, so that we may have it on file in your medical record. At your visit, we had the medical records we needed to provide you with the best possible care; however, for insurance purposes, an electronic Summary of Care is beneficial. Thank you for your assistance in obtaining this information and we look forward to providing continued care to you. Please review your medication list from the Summary of Care for this visit. If there are any differences from what you are currently taking at home, please call us to discuss. Not available 05/19/2023 14:27:21 Homebound Status : {{Patient has an inability to leave the home without a taxing effort and assistance from another person Does not meet homebound status}} Required Home Health Services: {{none shelter, physical therapy, occupational therapy shelter, physical therapy shelter}} Durable Medical Equipment needed: {{cane walker walke r with seat manual wheelchair bedside commode oxygen}} Billing Guidelines CPT code 28873- Transitional Care Management services with moderate medical decision complexity (ioqi-xh-bdbv visit within 14 days of discharge). CPT code 12121- Transitional Care Management services with high medical decision complexity (qiiy-sj-hoxc visit within 7 days of discharge). Not available 05/19/2023 14:27:21 07/28/2024 [id number] dementia rating scale-2* Not available 07/28/2024 17:36:20 depression screening* Not available 07/28/2024 17:36:20 alcohol misuse* Not available 07/28/2024 17:36:20 multi-dimensiona l health assessment questionnaire* Not available 07/28/2024 17:36:20 advance directiv es: care instructions Not available 07/28/2024 17:36:20 advance care planning: care instructions Not available 07/28/2024 17:36:20 [place] Advance Directives Not available 07/28/2024 17:36:20 Personalized a lth Plan and Screening Recommendations Advance Directives - Do you have one? No You have indicated that you are capable of preparing your advance care directive Advance Directives - Do we have your advance directive on file in your health record? No, please bring in a copy at your earliest convenience Primary Prevention/Interven tion (prevents or decreases the chance of common diseases from occurring) Smoking Risk: Smoker Refer to attached smoking cessation handouts Refer to attached handouts and prescription will be sent to pharmacy Continue to consider stopping smoking and call if we can assist you Alcohol Misuse Screening: Negative Weight: Appropriate Physical activity: Need more exercise/physical activity minimum of 10-20 minutes of activity that causes mild breathlessness/day Nutrition: Good Average Fall Risk (screened today): Low Vaccines Pneumococcal: Ordered Recommended today Recommended today, but you have declined No further needed Influenza: Your next one in the fall of this year Chronic Disease Risks Stroke: Low Risk Intermediate Risk I have no recommendations Act theresa diagnosis, Continue current treatment plan Heart Attack: Low risk Intermediate Risk I have no recommendations Act theresa diagnosis, Continue current treatment plan Clogging of the Arteries: Low risk Intermediate Risk I have no recommendations Act theresa diagnosis, Continue current treatment plan Diabetes: Low Risk Intermediate Risk Active diagnosis, Continue current treatment plan Secondary Prevention/Interven tion (detects treatable diseases before they may cause symptoms, disability, or ) Breast Cancer Screening with mammogram: Cervical/Uterine/Ov bea Cancer Screening: Osteoporosis Screening: Date Screening Last Performed: 2020 Colon Cancer Screening: Colonoscopy No screening necessary Date Screening Last Performed: 2016_ Eye Disease Screening: Dementia Risk: Low I have no recommendations Depression Screening: Negative [email or web address] Not available 07/28/2024 15:27:58 Reason for Referral EGD Referral for Gastrointes tinal hemorrhage Referring Physician: Amanda Means, Internal Medicine, Encounter Date: 11/19/2023 Results Created Date Observation Date Name Description Value Unit Range Abnormal Flag Note LastModifiedBy Organization Detail LastModifiedTime 09/09/2009/09/2024 US, duple x, carot id arter y No observ ation record ed. [email or web address] Not Available 2023 15:00:33 11/02/2009/22/2024 LDCT, chest , for lung cance r [place] No observ ation record ed. [email or web address] Not Available 2023 18:11:45 11/02/2009/22/2024 US, echoc ardio gram, trans thora cic, compl ete, w/ color flow No observ ation record ed. BARCODE Not Available 2023 18:11:45 Result Notes None recorded. Problems Name Problem SNOMED Code Status Onset Date Resolution Date Notes Provider Name and Address Organization Details Recorded Time End-stag e renal disease 36991293 Active 2022 Not Available [facility] 4 21:00:44 Anemia 519609899 Active 2022 Not Available [facility] 4 21:00:43 Insomnia 792674081 Active 2022 Not Available [facility] 4 21:00:43 Gastroin testinal hemorrha ge 74270689 Active 2022 Not Available [facility] 4 21:00:44 Heart murmur 09208098 Active 2023 Amanda Means MD [address], [address], [place], [address] , [facility] 4 14:44:31 Mass of right breast 16047125801 912972 Active 2023 Melany Merino MA null, [facility] 4 15:14:56 Breast lump 13919712 Completed 202403/10/2025 Lorieethan Hawk null, [facility] [employer] [facility] 5 14:43:31 Body mass index 30+ - obesity 556302320 Completed Not Available [facility] 3 04:51:08 Cerebrov ascular accident 053687608 Active 2021 Not Available [facility] 4 21:00:43 Metaboli c syndrome X 502922066 Completed Not Available [facility] 3 04:51:08 Transien t cerebral ischemia 505561528 Active 2021 Not Available [facility] 4 21:00:43 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 289884487 Active 2016 Not Available [facility] 4 21:00:43 Adult health examinat ion Active 2020 Not Available [facility] 4 21:00:43 Osteopen ia 202709689 Active 2016 Not Available [facility] 4 21:00:44 Vitamin D deficien cy 05709872 Active 2016 Not Available [facility] 4 21:00:44 Sinusiti s 09185455 Active Not Available [facility] 4 21:00:44 Hyperten sive disorder 45602047 Completed Not Available [facility] 3 04:51:09 Peripher al vascular disease 720806086 Active s/p stent Not Available [facility] 4 21:00:44 Eczema 07691315 Active Not Available [facility] 4 21:00:44 Anxiety 75874935 Active Not Available [facility] 4 21:00:44 Hyperlip idemia 26168754 Active Not Available [facility] 4 21:00:44 Nicotine dependen ce 67732484 Active Not Available [facility] 4 21:00:44 Essentia l hyperten antonia 61156941 Active 2021 Not Available [facility] 4 21:00:44 Carotid artery stenosis 57408626 Active 2021 Not Available [facility] 4 21:00:44 Carotid artery stenosis 39103303 Completed 201905/14/2022 Not Available [facility] 3 04:51:10 Carotid artery stenosis 84398837 Active left carotid surgery, right 100% Not Available [facility] 4 21:00:44 Diabetes mellitus 72708505 Active 2017 Not Available [facility] 4 21:00:44 Hypergly cemia 42037827 Completed Not Available [facility] 3 04:51:10 History of colonosc opy 33722625996 9 Active 05/16, normal, next in 10 yrs Not Available [facility] 4 21:00:44 Kidney disease 07128406 Active 2020 Not Available [facility] 4 21:00:44 Problem Notes None recorded. Procedures Surgical History Date Name Laterality Status Provider Name and Address Organization Details Recorded Time 07/28/20 24 Medicare Wellness CPT Code, subsequent completed Whitley Garvin RN [facility] [employer] [facility] 07/28/2024 14:51:08 07/28/20 24 Advanced Care Planning completed Whitley Garvin RN [facility] [employer] [facility] 07/28/2024 15:21:59 05/28/20 23 Transitional_Ca re_Management completed Gisselle Pandey RN [facility] [employer] [facility] 05/19/2023 14:27:22 02/04/20 23 Advanced Care Planning completed Marly Ro RN [facility] [employer] [facility] 02/03/2023 10:17:16 02/04/20 23 Medicare Wellness CPT Code, Initial completed Marly Ro RN [facility] [employer] [facility] 02/03/2023 10:10:33 07/10/20 21 Date of Last Mammogram completed Marly Ro RN [facility] 02/03/2023 10:14:29 07/10/20 21 Most Recent Bone Density completed Marly Ro RN [facility] 02/03/2023 10:14:42 07/06/20 17 Date of Last Colonoscopy completed Marly Ro RN [facility] 02/03/2023 10:14:55 Imaging Results Imaging Date Name Status LastModified by Organiz ation Details LastModified Time 09/09/2024 US, duplex, carotid artery completed [email or web address] Information not available 09/14/2024 15:00:33 09/22/2024 LDCT, chest, for lung cancer screening completed [email or web address] Information not available 11/02/2024 18:11:45 09/22/2024 US, echocardiogram , transthoracic, complete, w/ color flow completed [facility] Information not available 11/02/2024 18:11:45 Procedure Notes None recorded. Medical Equipment None Reported. Allergies Allergen ID Allergen Name Allergen Category Reaction Reaction Severity Criticality Documentation Date Start Date Code Code System Note Provider Name and Address Organization Details Recorded Time 8349 Product containin g 3-hydroxy -3-methyl glutaryl- coenzyme A reductase inhibitor (product) medicatio n Not available Not available Not available 01/28/2023 67992 009 SNOMED muscl eache s Not Available [facility] 3 05:04:48 8351 sertralin e medicatio n Not available Not available Not available 01/28/2023 99250 RxNorm lucid dream s Not Available [facility] 3 05:04:48 8352 Iodinated contrast media (substanc e) medicatio n Not available Not available Not available 01/28/2023 12579 2004 SNOMED Not Available [facility] 3 05:04:48 8355 hydralazi ne medicatio n dyspnea Not available Not available 01/28/2023 5470 RxNorm Not Available [facility] 3 05:04:49 Medications Name Sig Start Date Stop Date Status Note LastModified by Organization Details LastModified Time cyclobenzap rine 10 mg tablet TAKE ONE TABLET 3 TIMES DAILY NEEDED 01/18 completed Not Available Not Available Not Available furosemide 40 mg tablet TAKE 1 TABLET BY MOUTH TWICE DAILY active Not Available Not Available No t Available carvedilol 25 mg tablet TAKE ONE TABLET BY MOUTH TWICE DAILY 10/10 completed Not Available Not Available Not Available doxycycline hyclate 100 mg capsule Take 1 capsule twice a day by oral route for 7 days. active Not Available Not Available No t Available cefuroxime axetil 250 mg tablet 05/27 completed Not Available Not Available Not Available carvedilol 12.5 mg tablet Take 1 tablet twice a day by oral route. 01/05 completed Not Available Not Available Not Available triamcinolo ne acetonide 0.5 % topical cream APPLY A THIN LAYER TO THE AFFECTED AREA(S) BY TOPICAL ROUTE 2 TIMES PER DAY 03/23 completed Not Available Not Available Not Available pravastatin 40 mg tablet Take 1 tablet every day by oral route. active Not Available Not Available No t Available clobetasol 0.05 % topical cream active Not Available Not Available Not Available clopidogrel 75 mg tablet TAKE 1 TABLET BY MOUTH ONCE DAILY 11/19 completed Not Available Not Available Not Available allopurinol 100 mg tablet TAKE ONE TABLET BY MOUTH EVERY DAY 11/19 completed Not Available Not Available Not Available aspirin 81 mg tablet,camila yed release Take 1 tablet every day by oral route. 11/19 completed Not Available Not Available Not Available triamcinolo ne acetonide 0.1 % topical cream 03/23 completed Not Available Not Available Not Available alprazolam 0.5 mg tablet TAKE 1 TABLET BY MOUTH ONCE DAILY NEEDED active Not Available Not Available No t Available prednisolon e acetate 1 % eye drops,suspe nsion 01/10 completed Not Available Not Available Not Available triamcinolo ne acetonide 0.025 % topical cream active Not Available Not Available Not Available meclizine 25 mg tablet Take 1 tablet 3 times a day by oral route as needed. 12/06 completed Not Available Not Available Not Available amlodipine 10 mg tablet Take 1 tablet by mouth once daily 2024 active Not Available Not Available Not Avai lable telmisartan 40 mg tablet Take 1 tablet every day by oral route for 30 days. 04/21 completed Not Available Not Available Not Available triamcinolo ne acetonide 0.1 % topical ointment 04/[address]GO ARMSTRONG Not Available Not Available Not Available prednisone 50 mg tablet TAKE 1 TABLET ON 07/22 7 PM, THEN TAKE 1 TABLET BY MOUTH 07/23 AT 1 AM, THEN TAKE 1 TABLET BY MOUTH 07/23 AT 7 AM 11/19 completed Not Available Not Available Not Available telmisartan 80 mg tablet Take 1 tablet by mouth once daily 2024 active Not Available Not Available Not Avai lable metoprolol tartrate 50 mg tablet TAKE 1 TABLET BY MOUTH IN THE MORNING AND 2 TABS IN THE EVENING 2024 active Not Available Not Available Not Avai lable betamethaso ne dipropionat e 0.05 % topical cream 05/[address]GO ARMSTRONG Not Available Not Available Not Available sertraline 25 mg tablet Take 1 tablet every day by oral route at bedtime. active Not Available Not Available No t Available omeprazole 20 mg capsule,del ayed release 03/23 completed Not Available Not Available Not Available doxazosin 4 mg tablet Take 1 tablet by mouth once daily 2024 active Not Available Not Available Not Avai lable hydralazine 50 mg tablet Take 1 tablet twice a day by oral route. active Not Available Not Available No t Available mupirocin 2 % topical ointment 01/05 completed Not Available Not Available Not Available ergocalcife rol (vitamin D2) 1,250 mcg (50,000 unit) capsule TAKE ONE CAPSULE BY MOUTH BY MOUTH TWICE A WEEK active Not Available Not Available No t Available levofloxaci n 500 mg tablet Take 1 tablet every 24 hours by oral route for 7 days. 05/11 completed Not Available Not Available Not Available methylpredn isolone 4 mg tablets in a dose pack as directed 05/11 completed Not Available Not Available Not Available fluticasone propionate 50 mcg/actuati on nasal spray,suspe nsion [place] 2 sprays every day by intranasa l route for 10 days. 12/18 completed Not Available Not Available Not Available calcitriol 0.25 mcg capsule active Not Available Not Available Not Available amoxicillin 875 mg-potassiu m clavulanate 125 mg tablet Take 1 tablet every 12 hours by oral route for 10 days. 12/18 completed Not Available Not Available Not Available Ventolin HFA 90 mcg/actuati on aerosol inhaler Inhale 2 puffs every 4 hours by inhalatio n route as needed. 07/28 completed Not Available Not Available Not Available ezetimibe 10 mg tablet Take 1 tablet by oral route for 90 days. 11/19 completed Not Available Not Available Not Available nicotine 21mg/24hr-1 4mg/24hr-7m g/24hr daily transderm patches,seq uentl Apply 1 patch every day by transderm al route. 01/18 completed Not Available Not Available Not Available Vitamin D3 25 mcg (1,000 unit) capsule Take 1 capsule every day by oral route. 07/28 completed Not Available Not Available Not Available telmisartan 80 mg-hydrochl orothiazide 25 mg tablet TAKE ONE TABLET BY MOUTH EVERY DAY 10/14 completed Not Available Not Available Not Available Constulose 10 gram/15 mL oral solution 03/23 completed Not Available Not Available Not Available sevelamer carbonate 800 mg tablet TAKE 1 TABLET BY MOUTH THREE TIMES DAILY active Not Available Not Available No t Available Suprep Bowel Prep Kit 17.5 gram-3.13 gram-1.6 gram oral solution 01/05 completed Not Available Not Available Not Available Vitamin D3 50 mcg (2,000 unit) capsule Take 1 capsule every day by oral route. 08/09 completed Not Available Not Available Not Available Chantix Continuing Month Box 1 mg tablet Take 1 tablet twice a day by oral route for 30 days. 04/04 completed Not Available Not Available Not Available Chantix Starting Month Box 0.5 mg (11)-1 mg (42) tablets in dose pack FOLLOW PACKAGE DIRECTION S 04/04 completed Not Available Not Available Not Available Velphoro 500 mg chewable tablet 03/23 completed Not Available Not Available Not Available Vitals Date Recorded Body height Body mass index (BMI) Body weight Body temperature Heart rate Oxygen saturation Oxygen saturation in Arterial blood by Pulse oximetry Systolic blood pressure Diastolic blood pressure Provider Name and Address Organization Details Last Updated DateTime 3 153.67 cm 23.2 kg/m2 51872.6 8 g 98.2 [degF] 75 /min 98 % 98 % 120 mm[Hg] 68 mm[Hg] Kelley Mendoza [facility] [employer] [facility] 3 14:07:30 Date Recorded Body height Body mass index (BMI) Body weight Body temperature Heart rate Oxygen saturation Oxygen saturation in Arterial blood by Pulse oximetry Systolic blood pressure Diastolic blood pressure Provider Name and Address Organization Details Last Updated DateTime 3 153.67 cm 25 kg/m2 56099.0 1 g 97.7 [degF] 70 /min 99 % 99 % 122 mm[Hg] 60 mm[Hg] Luznaa hager Naa [facility] [employer] [facility] 3 11:53:40 Date Recorded Body height Body mass index (BMI) Body weight Body temperature Heart rate Oxygen saturation Oxygen saturation in Arterial blood by Pulse oximetry Systolic blood pressure Diastolic blood pressure Provider Name and Address Organization Details Last Updated DateTime 4 153.67 cm 25.4 kg/m2 56317.1 9 g 96.8 [degF] 71 /min 99 % 99 % 140 mm[Hg] 86 mm[Hg] Hyun Armstrong [facility] [employer] [facility] 4 12:01:54 Date Recorded Body height Body mass index (BMI) Body weight Body temperature Heart rate Oxygen saturation Oxygen saturation in Arterial blood by Pulse oximetry Systolic blood pressure Diastolic blood pressure Provider Name and Address Organization Details Last Updated DateTime 4 153.67 cm 25.4 kg/m2 45104.1 9 g 98.2 [degF] 70 /min 97 % 97 % 130 mm[Hg] 74 mm[Hg] Marcela Yost [facility] [employer] [facility] 4 14:19:58 Date Recorded Pain severity - 0-10 verbal numeric rating [Score] - Reported Provider Name and Address Organization Details Last Updated DateTime 07/28/2024 0 Whitley Garvin RN [facility] [employer] [facility] 07/28/2024 15:21:00 Date Recorded Body weight Body mass index (BMI) Body height Heart rate Oxygen saturation Oxygen saturation in Arterial blood by Pulse oximetry Systolic blood pressure Diastolic blood pressure Provider Name and Address Organization Details Last Updated DateTime 4 61573.5 6 g 26.1 kg/m2 153.67 cm 77 /min 96 % 96 % 180 mm[Hg] 70 mm[Hg] Luz hager, RMA [facility] [employer] [facility] 14:41:12 Social History Question Answer Notes LastModified by Organization Details LastModified Time Tobacco Smoking Status Current Some Day Smoker Whitley Garvin RN [facility], [facility] [employer] [facility] 07/28/2024 14:55:39 Do You Have An Advance Directive? No Papers Provided 07/28/2024 [email or web address] Information not available 07/28/2024 What Is Your Level Of Alcohol Consumption? Occasional [id number] Information not available 01/28/2023 How Many Years Have You Consumed Alcohol? 45 [email or web address] Information not available 02/03/2023 Do You Wear A Helmet When Biking? No Not Applicable [email or web address] Information not available 07/28/2024 Are You Blind Or Do You Have Difficulty Seeing? Yes Cataract In Left Eye, Had Cataract Removal Right Eye And States Now Has A Wrinkle On The Retina. [email or web address] Information not available 07/28/2024 What Is Your Level Of Caffeine Consumption? Occasional [email or web address] Information not available 07/28/2024 How Much Tobacco Do You Chew? None [email or web address] [id number] Information not available 01/28/2023 Are You Currently Employed? Yes [email or web address] Information not available 07/28/2024 Are You Deaf Or Do You Have Serious Difficulty Hearing? 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 [email or web address] Information not available 07/28/2024 What Type Of Diet Are You Following? SPECIFIC Renal [email or web address] Information not available 02/03/2023 Which Illicit Or Recreational Drugs Have You Used? Marijuana Quit Approximately 2 Years Prior As Of 07/28/2024 [email or web address] Information not available 07/28/2024 What Is The Highest Grade Or Level Of School You Have Completed Or The Highest Degree You Have Received? [email or web address] [id number] Information not available 01/28/2023 What Is Your Occupation? RETIRED/ Works With [employer] [email or web address] Information not available 07/28/2024 How Many Days Of Moderate To Strenuous Exercise, Like A Brisk Walk, Did You Do In The Last 7 Days? 0 [email or web address] Information not available 07/28/2024 Have There Been Any Changes To Your Family Or Social Situation? No MIGRATION.456 [id number] Information not available 01/28/2023 What Is The Fluoride Status Of Your Home? Fluoridated [email or web address] Information not available 02/03/2023 Are There Any Guns Present In Your Home? Yes MIGRATION.721 [id number] Information not available 01/28/2023 Do You Use Insect Repellent Routinely? Yes [email or web address] Information not available 07/28/2024 Where Do You Live? [place]House MIGRATION.895 [id number] Information not available 01/28/2023 Presence Of Domestic Violence No [email or web address] Information not available 07/28/2024 Guns Present In The Home? Yes [email or web address] Information not available 07/28/2024 Are You Able To Care For Yourself? Yes [email or web address] Information not available 02/03/2023 Are You Blind Or Do Yo Have Difficulty Seeing? Yes [email or web address] Information not available 07/28/2024 Are You Deaf Or Do You Have Serious Difficulty Hearing? Yes Information not available 02/03/2023 General Stress Level? Moderate [email or web address] Information not available 02/03/2023 Live Alone Of With Others? With Others Information not available 02/03/2023 Are You Following A Low Salt Diet? Yes [email or web address] Information not available 02/03/2023 Do You Have A Medical Power Of Bobbin Stripper? No MIGRATION.938 [id number] Information not available 01/28/2023 What Was The Date Of Your Most Recent Tobacco Screening? 07/28/2024 [email or web address] Information not available 07/28/2024 How Many Children Do You Have? 3 [email or web address] Information not available 07/28/2024 What Is Your Current Pack Years? [email or web address] Information not available 02/03/2023 Have You Ever Been Counseled For Unhealthy Alcohol Use? No MIGRATION.820 [id number] Information not available 01/28/2023 Do You Have Any Pets? Yes MIGRATION.946 [id number] Information not available 01/28/2023 What Is Your Relationship Status? MIGRATION.310 [id number] Information not available 01/28/2023 Do You Use Your Seat Belt Or Car Seat Routinely? Yes MIGRATION.350 [id number] Information not available 01/28/2023 Are You Sexually Active? No [email or web address] Information not available 07/28/2024 Do You Have Smoke And Carbon Monoxide Detectors In Your Home? Yes MIGRATION.263 [id number] Information not available 01/28/2023 At What Age Did You Start Smoking Tobacco? 17 MIGRATION.064 [id number] Information not available 01/28/2023 Are You Passively Exposed To Smoke? Yes Spouse Smokes Occasionally [email or web address] Information not available 07/28/2024 Are There Any Smokers In Your House? Yes Spouse Smokes [email or web address] Information not available 07/28/2024 How Much Tobacco Do You Smoke? 1 PPW Does Not Smoke Daily, States 2-3 A Day Is The Max [email or web address] Information not available 07/28/2024 What Types Of Sporting Activities Do You Participate In? None [email or web address] Information not available 07/28/2024 Do You Feel Stressed (tense, Restless, Nervous, Or Anxious, Or Unable To Sleep At Night)? [id number] [email or web address] Information not available 07/28/2024 Do You Use Any Illicit Or Recreational Drugs? No [email or web address] Information not available 07/28/2024 Do You Use Sunscreen Routinely? Yes MIGRATION.124 [id number] Information not available 01/28/2023 Has Tobacco Cessation Counseling Been Provided? Yes [email or web address] Information not available 02/03/2023 On What Date Was Tobacco Cessation Counseling Provided? 02/03/2023 [email or web address] Information not available 02/03/2023 Have You Recently Traveled Abroad? No MIGRATION.507 [id number] Information not available 01/28/2023 Do You Have Any Dietary Restrictions? Yes Phosphorous [email or web address] Information not available 07/28/2024 Do You Or Have You Ever Used Any Other Forms Of Tobacco Or Nicotine? No MIGRATION.253 [id number] Information not available 01/28/2023 How Many Days In The Past Year Have You Consumed 4 Or More Drinks? 0 [email or web address] Information not available 07/28/2024 Sex: Female Functional Status Question Answer Note LastModified by Organizat ion Details LastModified Time Do you have difficulty walking or climbing stairs? No [email or web address] Information not available 07/28/2024 Do you have transportation difficulties? No [email or web address] Information not available 02/03/2023 Are you able to walk? YESWOREST [email or web address] Information not available 02/03/2023 Do you have difficulty doing errands alone? 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 Yes [email or web address] Information n ot available 02/03/2023 Do you have difficulty dressing or bathing? No [email or web address] Information not available 02/03/2023 What is your exercise level? None [email or web address] Information not available 07/28/2024 Mental Status Question Answer Note LastModified by Organization D etails LastModified Time Do you have difficulty concentrating, remembering or making decisions? No [email or web address] Information no t available 02/03/2023 Family History Relationship Description Onset Age of this Age Resolved Age Notes LastModified by Organization Details LastModified Time Mother Cerebrovascu lar accident MIGRATION.578 [id number] Not available 01/28/2023 04:42:11 Mother Congestive heart failure MIGRATION.940 [id number] Not available 01/28/2023 04:42:11 Father Cerebrovascu lar accident MIGRATION.729 [id number] Not available 01/28/2023 04:42:11 Father Atrial fibrillation MIGRATION.246 [id number] Not available 01/28/2023 04:42:11 Medical History No medical history recorded. Gynecological History Statement/Question Response Date of Last Colonoscopy 07/06/2017 Date of Last Mammogram 07/10/2021 Most Recent Bone Density 07/10/2021 Obstetrics History GPAL:G 0 P 0 0 0 0 Immunizations Vaccine Type Date Status Note Provider Nam e and Address Organization Details Recorded Time pneumococcal conjugate PCV 7 2 completed Not Available [facility] 12/17/2023 21:00:44 SARS-COV-2 (COVID-19) vaccine, UNSPECIFIED 1 completed Not Available [facility] 12/17/2023 21:00:44 SARS-COV-2 (COVID-19) vaccine, UNSPECIFIED 1 completed Not Available [facility] 12/17/2023 21:00:44 pneumococcal polysaccharide PPV23 7 completed Not Available [facility] 12/17/2023 21:00:44 Past Encounters Encounter ID Performer Location Encounter Start Date Encounter Closed Date Diagnosis/Indication Diagnosis SNOMED-CT Code Diagnosis ICD10 Code Diagnosis Note [id number] [facility] [address] [facility] [address] 04/04/2021 00:00:00 04/04/2021 10:25:14 [id number] [facility] [address] [place] [address] 08/01/2021 00:00:00 08/01/2021 09:46:22 [id number] [facility] [address] [facility] [address] 01/10/2022 00:00:00 01/10/2022 12:11:19 [id number] [facility] [address] [place] [address]. [place] [address] 05/15/2022 00:00:00 05/15/2022 11:23:13 [id number] [facility] [address] [place] [address] 05/27/2022 00:00:00 05/27/2022 12:05:56 [id number] [facility] [address] [place] [address] 06/10/2022 00:00:00 06/10/2022 09:48:38 [id number] [facility] [address] [place] [address] 09/12/2022 00:00:00 09/12/2022 10:46:53 [id number] [facility] [address] [place] [address]. [place] [address] 10/10/2022 00:00:00 10/10/2022 09:22:27 [id number] Amanda Means MD [facility] [address] [facility] [facility] [address] 02/03/2023 09:11:07 02/03/2023 10:18:38 Adult health examination 869297364 Z00.00 Colonoscop y- 05/06/2017 Mammogram- 07/10/2021 Dexa- 07/10/2021 Pneumovax- 09/01/2017 Prevnar 13- 08/30/2012 FLU- NEVER- Does not wantCOVID- #1- 03/02/21, #2- 03/24/21 Anxiety 67610133 F41.9 meds help Carotid ar janeen stenosis 21310744 I65.29 last dexa 05/21 Cerebrovas cular accident 516397216 I63.9 on asa Diabetes mellitus 925324 09 E11.9 diet controlled Eczema 40364544 L30.9 Essential hypertension 05627390 I10 going to restart doxazocin Hyperlipidemia 17408209 E78.5 labs Kidney disease 67590888 N08 advise to f/u with nephrology Nicotine dependence 5629 4008 F17.200 Osteopenia 434988920 M85 .80 on vit d Peripheral vascular disease 782759043 I73.9 no symptoms Vitamin D deficiency 347 32023 E55.9 Transient cerebral ischemia 221734038 G45.9 no recurrence Screening mammography 24 260891 Z12.31 Postmenopausal state 764 69435 Z78.0 Screening for disorder 105669627 Z13.9 [id number] Amanda Means MD [facility] [address] [address] 02/24/2023 14:02:45 02/24/2023 14:37:42 Essential hypertension 89965560 I10 ^ metoprolol 100 mg qpm, 50 am [id number] Amanda Means MD [facility] [address] [place] [address] 04/23/2023 14:18:03 04/23/2023 14:45:43 Essential hypertension 17807535 I10 much better Anxiety 03641456 F41.9 needs meds once in a while [id number] Amanda Means MD [facility] [address] [address] 05/28/2023 14:00:28 05/28/2023 14:43:10 Transition of care 2965641219 105 Z75.8 Transition Care Management Questionna ireDate of Discharge 05/18/23Adm ission Date: 6/15/23Dat e of Contact: 1st attempt: 05/19/23Rea son for Admission: Discharge Facility Name: [facility] Facility Type inpatient acute care [facility] Diagnosis( es): 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 yesDo you have any questions about your new medication s? noDid the hospital set up a follow up appointmen t with your PCP? yes, when:Patie nt reschedule d appointmen t for 05/28/23.Di d the hospital set up an appointmen t up with any specialist s? noDid the hospital set up Home Health Care or Outpatient therapy? noDid the hospital set you up with any equipment before discharge? noDo you have all the equipment you need to perform daily living activities ? yesPerform ed by: (include credential s) Greg Pandey RN End-stage renal disease 52169442 N18.6 on HD Anemia 702163310 D64.9 ON IRON Essential hypertension 70767880 I10 much better with meds Insomnia 400757741 G47.0 0 wants to wit for the meds [id number] Amanda Means MD [facility] [address] [place] [address] 11/19/2023 11:43:33 11/19/2023 12:30:34 Anxiety 09510960 F41.9 meds help Carotid ar janeen stenosis 66395475 I65.29 last dopplers 05/21 Cerebrovas cular accident 107975910 I63.9 on asa Diabetes mellitus 782980 09 E11.9 diet controlled , gets labs at nephrology Eczema 74166517 L30.9 Essential hypertension 44669510 I10 under control Hyperlipidemia 04731438 E78.5 under control Nicotine dependence 5629 4008 F17.200 advised to quit Osteopenia 920153113 M85 .80 on vit d Peripheral vascular disease 266965824 I73.9 no symptoms Vitamin D deficiency 347 70361 E55.9 on meds Transient cerebral ischemia 600639701 G45.9 no recurrence Adult heal th examination 043452405 Z00.00 Colonoscop y- 05/06/2017 c, next in 10 yrsLDCT- Due and ordered, wants to waitMammog jose c- 07/10/2021 -DueDexa- 07/10/2021 - DUEPneumov ax- 09/01/2017 Prevnar 08/30/2012 FLU- NEVER- Does not wantCOVID- #1- 03/02/21, #2- 03/24/21 Screening mammography 24 725640 Z12.31 Postmenopausal state 764 01705 Z78.0 Gastrointe stinal hemorrhage 69826319 K92.2 End-stage renal disease 62023588 N18.6 on HD [id number] Amanda Means MD [facility] [address] [place] [address] 03/23/2024 11:54:57 03/23/2024 12:33:23 Diabetes mellitus 76009706 E11.9 diet controlled , gets labs at nephrology Anxiety 64370528 F41.9 meds help Carotid ar janeen stenosis 55312982 I65.29 needs dopplers Cerebrovas cular accident 095276484 I63.9 on asa Eczema 59222131 L30.9 better Essential hypertension 19216460 I10 under control Hyperlipidemia 65315003 E78.5 under control Nicotine dependence 5629 4008 F17.200 advised to quit Osteopenia 875241552 M85 .80 on vit d Peripheral vascular disease 662087688 I73.9 no symptoms Vitamin D deficiency 347 97359 E55.9 on meds Transient cerebral ischemia 838370929 G45.9 no recurrence Adult heal th examination 706385833 Z00.00 Colonoscop y- 05/06/2017 c, next in 10 yrsLDCT- Due and ordered, wants to waitMammog jose c- 07/10/2021 -DueDexa- 07/10/2021 - DUEPneumov ax- 09/01/2017 Prevnar 08/30/2012 FLU- NEVER- Does not wantCOVID- #1- 03/02/21, #2- 03/24/21 Screening mammography 24 343701 Z12.31 Postmenopausal state 764 66771 Z78.0 Gastrointe stinal hemorrhage 63073647 K92.2 no more, off palvix End-stage renal disease 84232972 N18.6 on dialysis [id number] Amanda Means MD [facility] [address] [place] [address] 07/28/2024 14:10:57 07/28/2024 15:15:33 Diabetes mellitus 59367198 E11.9 diet controlled , gets labs at nephrology , A1c was 4.9 Anxiety 12006604 F41.9 meds help, sleeps fine Carotid ar janeen stenosis 32101126 I65.29 needs dopplers, has been ordered few times, willing Cerebrovas cular accident 913734790 I63.9 on asa, very functional Eczema 65118098 L30.9 better with cream Essential hypertension 46816300 I10 under control Hyperlipidemia 17251674 E78.5 under control Nicotine dependence 5629 4008 F17.200 advised to quit Osteopenia 213641569 M85 .80 on vit d Peripheral vascular disease 308696770 I73.9 no symptoms Vitamin D deficiency 347 22923 E55.9 on meds Transient cerebral ischemia 548410036 G45.9 no recurrence Adult heal th examination 393956872 Z00.00 Colonoscop y- 05/06/2017 c, next in 10 yrsLDCT- Due and ordered, wants to waitMammog jose c- 07/10/2021 -DueDexa- 07/10/2021 - DUEPneumov ax- 09/01/2017 Prevnar 13- 08/30/2012 FLU- NEVER- Does not wantCOVID- #1- 03/02/21, #2- 03/24/21 Screening mammography 24 694781 Z12.31 Postmenopausal state 764 74173 Z78.0 Gastrointe stinal hemorrhage 81986812 K92.2 no more, off palvix End-stage renal disease 63460375 N18.6 on dialysis Heart murmur 75174770 R0 1.1 Screening for disorder 834286141 Z13.9 [id number] Amanda Means MD [facility] [address] [facility] [address] 11/02/2024 14:17:07 11/02/2024 15:12:54 Diabetes mellitus 83267108 E11.9 diet controlled , Anxiety 62821948 F41.9 meds help, sleeps fine Carotid ar janeen stenosis 05740597 I65.29 needs dopplers, has been ordered few times, willing Cerebrovas cular accident 989339530 I63.9 on asa, very functional Eczema 65382398 L30.9 better with cream Essential hypertension 58422716 I10 Hyperlipidemia 30635237 E78.5 under control Nicotine dependence 5629 4008 F17.200 advised to quit Osteopenia 348725492 M85 .80 on vit d Peripheral vascular disease 181593623 I73.9 no symptoms Vitamin D deficiency 347 34042 E55.9 on meds Transient cerebral ischemia 367940764 G45.9 no recurrence Adult heal th examination 150949911 Z00.00 Colonoscop y- 05/06/2017 c, next in 10 yrsLDCT- Due and ordered, wants to waitMammog jose c- 07/10/2021 -DueDexa- 07/10/2021 - DUEPneumov ax- 09/01/2017 Prevnar 13- 08/30/2012 FLU- NEVER- Does not wantCOVID- #1- 03/02/21, #2- 03/24/21 Gastrointe stinal hemorrhage 01945913 K92.2 no more, off palvix End-stage renal disease 11098882 N18.6 on dialysis Heart murmur 85975189 R0 1.1 echo report pending Health Concerns Section Related Observation LastModified by Organization Detai ls LastModified Time None Recorded Concern Status LastModified by Organization Details LastModified Time None Recorded Advance Directives Directive N: papers provided 07/28/2024 Payers Encounter Date Sequence Insurance Name Policy Number Policy Mooney Covered Member ID Mooney Member ID Guarantor Name 05/28/2023 1 [place] Camila Layton [id number] Camila Layton 05/28/2023 2 [employer] (MEDICARE SUPPLEMENT) Camila Layton [id number] Camila Layton 11/19/2023 1 [place] Camila Layton [id number] Camila Layton 11/19/2023 2 [employer] (MEDICARE SUPPLEMENT) Camila R Kinjal [id number] Camila R Kinjal 03/23/2024 1 [place] Camila R Kinjal [id number] Camila R Kinjal 03/23/2024 2 [employer] (MEDICARE SUPPLEMENT) Camila R Kinjal [id number] Camila R Kinjal 07/28/2024 1 [place] Camila R Kinjal [id number] Camila R Kinjal 07/28/2024 2 [employer] (MEDICARE SUPPLEMENT) Camila R Kinjal [id number] Camila R Kinjal 11/02/2024 1 [place] Camila R Kinjal [id number] Camila R Kinjal 11/02/2024 2 [employer] (MEDICARE SUPPLEMENT) Camila R Kinjal [id number] Camila R Kinjal Notes Date Note Type Note Provider Name and Address Organization Details Recorded Time 05/28/2023 text/html Pt is here today for a hospital follow up was at [facility] from 05/14/23/05/18/23 Dx-Dependence of hemodialysis due to ESRD, band neutrophil count above reference range, anemia of chronic renal failure labs were done at hospital She was started on Sevelamer 800mg admitted for Placement of right IJ tunneled HD catheter says she is feeling better appetite is better Amanda Means MD [address] [facility], [facility] [address], [place], [address], [place] [facility] [employer] 05/28/2023 14:29:36 11/19/2023 text/html Doing fine, comp liant to medications, no side affects, here for follow up. Was taken off plavix and aspirin and just quit taking the Zetia. Had to have a blood transfusion on the . Has been feeling much better since, stools were black HTN- good todayMeds- amlodipine 10 mg qd, telmisartan 80 mg qd, Metoprolol 50mg BID, Doxazosin 4mg daily Hyperlipidemia, on meds and under control , labs dueNo longer taking zetia per pt. for no reasonDM- diet controlled, A1C 5.7, watching diet, no meds h/o TIA- ON ASA, no symptoms. Enmanuel Allison took her off Plavix and Asa Kidney Disease- new since 03/20, Seen Dr. Singer, She is taking Home Dialysis TIDCarotid stenosis- s/p endarterectomy left , carotid duplex 09/19, PVD s/p stent in the right leg, seen dr Teresa Singer took her off the plavix SINCE GGI BLEEDINGSmoker- advised to quit-wants to wait for the LDCTAnxiety- take xanax few x a month,Meds- alprazolam 0.5 mg prn Vit D def- on OTC meds Back pain s/p epidurals in the past, some times gets pain,Meds- OTC prnEczema- uses triamcinolone as needed. rash more on the right legMeds- triamcinolone CVA- Was at [facility] from 05/27- 05/29/22Pt had a cerebrovascular accident and her BP was highhas left arm weakness, mild,she had MRI, MRA, ECHO and carotid dopplers while in the hospital Amanda Means MD [address] [facility], [facility] [address], [place], [address], [facility] [employer] 11/19/2023 12:30:30 03/23/2024 text/html Doing fine, comp liant to medications, no side affects, here for follow up. Mammogram and Dexa- Reordered HTN- 140/86 todayMeds- Amlodipine 10 mg qd, Telmisartan 80 mg qd, Metoprolol 50mg BID, Doxazosin 4mg daily Hyperlipidemia, on meds and under control , labs dueNo longer taking zetia per pt. for no reasonDM- diet controlled, A1C 5.3 by nephrology, watching diet, no meds, h/o TIA- ON ASA, no symptoms. Enmanuel Allison took her off Plavix and Asa, Kidney Disease- new since 03/20, Seen Dr. Singer, She is taking Home Dialysis TIDMeds- Vitamin D 50,000u Twice a week, Calcitriol 0.25mg dailyCarotid stenosis- s/p endarterectomy left , carotid duplex 09/19, PVD s/p stent in the right leg, seen dr Teresa Singer took her off the plavix SINCE GGI BLEEDINGSmoker- advised to quit-wants to wait for the LDCTAnxiety- take xanax few x a month,Meds- alprazolam 0.5 mg prn ( NEEDS A REFILL) Vit D def- on OTC meds Back pain s/p epidurals in the past, some times gets pain,Meds- OTC prnEczema- uses triamcinolone as needed. rash more on the right legMeds- triamcinolone CVA- Was at [facility] from 05/27- 05/29/22Pt had a cerebrovascular accident and her BP was highhas left arm weakness, mild,she had MRI, MRA, ECHO and carotid dopplers while in the hospital Amanda Means MD [address] [facility], [address], [place], [address], [facility] [employer] 03/23/2024 12:28:06 07/28/2024 text/html Doing fine, comp liant to medications, no side affects, here for follow up.PT IS NOT FASTINGMedicare Wellness Exam Mammogram,Dexa, LDCT and Carotid - Reordered HTN- 130/74 todayMeds- Amlodipine 10 mg qd, Telmisartan 80 mg qd, Metoprolol 50mg BID, Doxazosin 4mg daily Hyperlipidemia- under control, not on meds , labs dueNo longer taking zetia per pt. for no reasonDM- diet controlled, A1C 4.9 (06/2024) by nephrology, watching diet, no meds h/o TIA- ON ASA, no symptoms. Enmanuel Allison took her off Plavix and Asa, ESRD- new since 03/20, Seen Dr. Singer, She is taking Home Peritoneal Dialysis TIDMeds- Vitamin D 50,000u Twice a week, Calcitriol 0.25mg dailyCarotid stenosis- s/p endarterectomy left , carotid duplex 09/19, PVD s/p stent in the right leg, seen dr Teresa Singer took her off the plavix SINCE GGI BLEEDINGSmoker- advised to quit-wants to wait for the LDCTAnxiety- take xanax few x a month,Meds- Alprazolam 0.5 mg prn Vit D def- on OTC meds Back pain s/p epidurals in the past, some times gets pain,Meds- OTC prnEczema- uses triamcinolone as needed. rash more on the right legMeds- triamcinolone CVA- Was at [facility] from 05/27- 05/29/22Pt had a cerebrovascular accident and her BP was highhas left arm weakness, mild,she had MRI, MRA, ECHO and carotid dopplers while in the hospital Amanda Means MD [address] [facility], [address], [place], [address], [facility] [employer] 07/28/2024 17:36:33 11/02/2024 text/html Doing fine, comp liant to medications, no side affects, here for follow up.PT IS NOT FASTING ( Medicare/ [employer] HTN- high today 180/70- Does feel chest CongestedDenies any headache, chest pains or SOBMeds- Amlodipine 10 mg qd, Telmisartan 80 mg qd, Metoprolol 50mg BID, Doxazosin 4mg daily Hyperlipidemia- under control, not on meds , labs dueNo longer taking zetia per pt. for no reasonDM- diet controlled, A1C 4.9 (06/2024) by nephrology, watching diet, no meds h/o TIA- ON ASA, no symptoms. Enmanuel Allison took her off Plavix, ESRD- new since 03/20, Seen Dr. Singer, She is taking Home Peritoneal Dialysis TIDMeds- Vitamin D 50,000u Twice a week, Calcitriol 0.25mg dailyCarotid stenosis- s/p endarterectomy left , carotid duplex 09/22 show ed 60-69% stenosis PVD s/p stent in the right leg, seen dr Moore Smoker- advised to quit-wants to wait for the LDCTAnxiety- take xanax few x a month,Meds- Alprazolam 0.5 mg prn Vit D def- on OTC meds Back pain s/p epidurals in the past, some times gets pain,Meds- OTC prnEczema- uses triamcinolone as needed. rash more on the right legMeds- triamcinolone CVA- Was at [facility] from 05/27- 05/29/22Pt had a cerebrovascular accident and her BP was highhas left arm weakness, mild,she had MRI, MRA, ECHO and carotid dopplers while in the hospital Amanda Means MD [address] [facility], [facility] [address], [place], [address], [place] [facility] [employer] [facility] 11/02/2024 14:58:43 OBGyn Episode No OBEpisode recorded.
--- OUTSIDE RECORDS SUMMARY | 2025-03-13 10:05 | XMS_ITS ---
[facility] Name [facility] Address [address] [place] [address] Phone [phone] Organization [facility] e, NA DOCUMENT DISCLAIMER Multiple document versions may exist, please be sure you review the latest version. The information in the [facility] Continuity of Care Document represents a summary of certain health and medical information. It may not contain the complete medical history for the patient and should be independently verified. The represented time in the document is Eastern Time. PROBLEMS Problem Code Status Onset Date Hyperlipidemia, unspecified E78.5 Active December 29, 2024 Hypokalemia E87.6 Active December 29 5 Hypocalcemia E83.51 Active December 29 Other disorders of phosphorus metabolism E83.39 Active December 07, 2024 Moderate protein-calorie malnutrition E44.0 Act theresa December 10, 2023 Encounter for adequacy testi ng for peritoneal dialysis Z49.32 Active August 26, 2023 Encounter for fitting and ad justment of peritoneal dialysis catheter Z49.02 Active July 30, 2023 Encounter for immunization Z23 Active J esme 2022 Shortness of breath R06.02 Active May 19, 2023 Iron deficiency anemia, unspecified D50.9 Activ e May 19, 2023 End stage renal disease N18.6 Active May 19, 2023 Allergy, unspecified, sequela T78.40XS Active May 19, 2023 Dependence on renal dialysis Z99.2 Active May 18, 2023 Secondary hyperparathyroidism of renal origin N25.81 Active May 18, 2023 Renal osteodystrophy N25.0 Active April Anemia in chronic kidney disease D63.1 Active May 18, 2023 Personal history of nicotine dependence Z87.891 A ctive May 18, 2023 Personal history of transien t ischemic attack (TIA), and cerebral infarction without residual deficits Z86.73 Active May 18, 2023 Hypertensive chronic kidney disease with stage 5 chronic kidney disease or end stage renal disease I12.0 Active May 18, 2023 Type 2 diabetes mellitus wit h diabetic chronic kidney disease E11.22 Active May 18, 2023 Atherosclerotic heart diseas e of [place] coronary artery without angina pectoris I25.10 Active May 18, 2023 ALLERGIES AND ADVERSE REACTIONS Substance Reaction Severity Status HYDRALAZINE Unknown Active IODINATED CONTRAST MEDIA Unknown Act theresa pollen extracts Unknown Active SOCIAL HISTORY Tobacco Use Status Tobacco Type Heavy tobacco smoker Cigarettes Caregiver Characteristics Need Level ADL Type Relationship of Caregiver Requires some assistance Shopping Meal preparation Laundry Housekeeping M edication management Managing medical appointments Managing finances Family Characteristics of Home environment Housing Status Patient Resides With House Gender and Sex Information Gender Identity Sexual Orientation Female Heterosexual MEDICATIONS Home Medications Medication Instructions Dosage Route Start Date End Date [facility] amlodipine 10 mg Take by mouth once a day 1 tablet ORAL May 29, 2023 Active aspirin 81 mg by mouth once a day 1 tablet ORAL March 10, 2025 Active calcitriol 0.25 mcg by mouth once a week 1 capsule ORAL March 10, 2025 Active Cardura 4 mg Take by mouth every night 1 tablet ORAL May 29, 2023 Active clobetasol 0.05% Apply to affected area once a day 1 a small amount TOPICAL April 05, 2024 Active furosemide 40 mg twice a day 1 tablet ORAL Decee r 2022 Active gentamicin 0.1% Apply to skin three times a week 1 a small amount TOPICAL February 23, 2025 Active Klor-Con 10 10 mEq Take by mouth once a day 1 tablet ORAL March 10, 2025 Active metoprolol tartrate 50 mg Take by mouth every morning 1 tablet ORAL May 29, 2023 Active metoprolol tartrate 50 mg Take by mouth every night 2 tablet ORAL May 29, 2023 Active Sevelamer Carbonate Tablet 800 mg Take By Mouth Three times a day With Meals 1 Tablet By Mouth March 08, 2025 February 24, 2026 Active telmisartan 80 mg Take by mouth once a day 1 tablet ORAL May 29, 2023 Active triamcinolone acetonide 0.5% Apply to affected area three times a day TOPICAL May 29, 2023 Active Vitamin D2 1,250 mcg (50,000 unit) by mouth once a week 1 capsule ORAL December 18, 2023 Active Xanax 0.5 mg Take by mouth as needed 1 tablet ORAL May 29, 2023 Active Renvela 800 mg Take by mouth three times a day 1 ORAL February 02, 2024 March 08, 2025 Discontinued VITAL SIGNS Weight Vital Sign Value Date / Time Estimated Dry Weight 60 kg February 07 025 11:59 PM Other Other Value Date / Time Height 152 cm December 01, 2023 12:00 AM Body Mass Index 25.97 kg/m2 March 01, 2025 0 3:45 PM HEALTH CONCERNS Tuberculosis Testing TST Date Administered TST Date Read TST Result 05/20/2023 05/22/2023 Negative (<5) mm LAB RESULTS Hematology Result Type Result Value Relevant Referen ce Range Interpretation Date Transferrin Sat. (Calc) 29 % 20 - 55 % - October 04, 2024 UIBC/TIBC 166 mcg/dL 155 - 355 mcg/dL - October 04, 2024 TIBC (Calc) 234 mcg/dL 185 - 515 mcg/dL - 2023 Neutrophils 70.9 % 40.0 - 75.0 % - September Ferritin 271 ng/mL 10 - 291 ng/mL - September Folate, Serum 7.6 ng/mL No Reference Ran ge Provided - October 04, 2024 WBC (No Diff) 12.63 1000/mcL 4.80 - 10.80 1000/mcL High October 04, 2024 Reticulocyte 0.73 % 0.80 - 2.10 % Low October 04, 2024 Platelets 316 1000/mcL 130 - 400 1000/mcL - Nove [facility] 2023 Transferrin Sat. (Calc) 31 % 20 - 55 % - November 08, 2024 UIBC/TIBC 177 mcg/dL 155 - 355 mcg/dL - November 08, 2024 TIBC (Calc) 258 mcg/dL 185 - 515 mcg/dL - 2023 Reticulocyte 1.17 % 0.80 - 2.10 % - November 08, 2024 Platelets 360 1000/mcL 130 - 400 1000/mcL - Dece mb2023 WBC (No Diff) 14.39 1000/mcL 4.80 - 10.80 1000/mcL High November 08, 2024 Neutrophils 74.6 % 40.0 - 75.0 % - October 302023 Iron 37 mcg/dL 30 - 160 mcg/dL - November 302024 UIBC/TIBC 160 mcg/dL 155 - 355 mcg/dL - December 16, 2024 TIBC (Calc) 197 mcg/dL 185 - 515 mcg/dL - December 16, 2024 Transferrin Sat. (Calc) 19 % 20 - 55 % Low December 16, 2024 Hemoglobin x 3 26.1 % 36.0 - 48.0 % Low December 16, 2024 Platelets 427 1000/mcL 130 - 400 1000/mcL High Dell edd2024 Reticulocyte 1.21 % 0.80 - 2.10 % - November 302024 Neutrophils 75.4 % 40.0 - 75.0 % High November Lymphocytes 11.5 % 19.0 - 48.0 % Low November Monocytes 5.7 % 3.0 - 10.0 % - December 16, 2024 WBC (No Diff) 13.61 1000/mcL 4.80 - 10.80 1000/mcL High December 16, 2024 MCH 32.0 pg 27.0 - 31.0 pg High November MCHC 33.9 g/dL 30.0 - 36.0 g/dL - December 16, 2024 RDW 13.0 % 11.5 - 14.5 % - December 16, 2024 Eosinophil 5.7 % 0.0 - 7.0 % - December 16 025 Basophils 0.4 % 0.0 - 1.5 % - December 16 025 NATHALIA 1.2 % 0.0 - 4.0 % - December 16 Hemoglobin x 3 23.4 % 36.0 - 48.0 % Low December 29, 2024 Iron 67 mcg/dL 30 - 160 mcg/dL - December 022024 UIBC/TIBC 180 mcg/dL 155 - 355 mcg/dL - December 29, 2024 Transferrin Sat. (Calc) 27 % 20 - 55 % - December 29, 2024 TIBC (Calc) 247 mcg/dL 185 - 515 mcg/dL - December 29, 2024 Neutrophils 75.3 % 40.0 - 75.0 % High December Ferritin 623 ng/mL 10 - 291 ng/mL High December WBC (No Diff) 13.77 1000/mcL 4.80 - 10.80 1000/mcL High January 02, 2025 NATHALIA 1.1 % 0.0 - 4.0 % - January 02, 2025 Basophils 0.8 % 0.0 - 1.5 % - January 02, 2025 RDW 14.8 % 11.5 - 14.5 % High December MCHC 32.2 g/dL 30.0 - 36.0 g/dL - January 02, 2025 MCH 31.8 pg 27.0 - 31.0 pg High December UIBC/TIBC 194 mcg/dL 155 - 355 mcg/dL - January 02, 2025 TIBC (Calc) 266 mcg/dL 185 - 515 mcg/dL - 2024 Iron 72 mcg/dL 30 - 160 mcg/dL - January 02, 2025 Transferrin Sat. (Calc) 27 % 20 - 55 % - January 02, 2025 Reticulocyte 3.61 % 0.80 - 2.10 % High January 02, 2025 Platelets 404 1000/mcL 130 - 400 1000/mcL High 2024 Hemoglobin x 3 25.5 % 36.0 - 48.0 % Low 2024 Eosinophil 6.3 % 0.0 - 7.0 % - January 02, 2025 Monocytes 4.5 % 3.0 - 10.0 % - January 02, 2025 Lymphocytes 12.1 % 19.0 - 48.0 % Low December Hemoglobin x 3 35.7 % 36.0 - 48.0 % Low January 282024 Reticulocyte 0.92 % 0.80 - 2.10 % - February 07, 2025 Platelets 264 1000/mcL 130 - 400 1000/mcL - 2024 WBC (No Diff) 13.46 1000/mcL 4.80 - 10.80 1000/mcL High February 07, 2025 MCHC 31.9 g/dL 30.0 - 36.0 g/dL - January MCH 31.6 pg 27.0 - 31.0 pg High February 07, 2025 RDW 14.2 % 11.5 - 14.5 % - February 07 025 Eosinophil 10.2 % 0.0 - 7.0 % High February 07 5 NATHALIA 1.2 % 0.0 - 4.0 % - February 07 5 Basophils 1.0 % 0.0 - 1.5 % - February 07 Neutrophils 69.4 % 40.0 - 75.0 % - February 07, 2025 Monocytes 4.2 % 3.0 - 10.0 % - February 07 25 Lymphocytes 14.1 % 19.0 - 48.0 % Low February 07, 2025 UIBC/TIBC 182 mcg/dL 155 - 355 mcg/dL - January TIBC (Calc) 244 mcg/dL 185 - 515 mcg/dL - January 282024 Iron 62 mcg/dL 30 - 160 mcg/dL - February 07, 2025 Transferrin Sat. (Calc) 25 % 20 - 55 % - February 07, 2025 Platelets 299 1000/mcL 130 - 400 1000/mcL - Apri l 2024 Reticulocyte 0.64 % 0.80 - 2.10 % Low February 28, 2025 Hemoglobin x 3 41.4 % 36.0 - 48.0 % - February UIBC/TIBC 197 mcg/dL 155 - 355 mcg/dL - February TIBC (Calc) 265 mcg/dL 185 - 515 mcg/dL - February Transferrin Sat. (Calc) 26 % 20 - 55 % - February 28, 2025 Iron 68 mcg/dL 30 - 160 mcg/dL - February 28, 2025 Basophils 0.7 % 0.0 - 1.5 % - February 28 RBC 4.30 mill/mcL 4.20 - 5.40 mill/mcL - February 28, 2025 HCT 42.5 % 37.0 - 47.0 % - February 28 025 NATHALIA 1.6 % 0.0 - 4.0 % - February 28 WBC (No Diff) 12.94 1000/mcL 4.80 - 10.80 1000/mcL High February 28, 2025 MCHC 32.4 g/dL 30.0 - 36.0 g/dL - February RDW 14.3 % 11.5 - 14.5 % - February 28 025 MCH 32.0 pg 27.0 - 31.0 pg High February 28, 2025 HGB 13.8 g/dL 12.0 - 16.0 g/dL - February Neutrophils 67.5 % 40.0 - 75.0 % - February 28, 2025 Lymphocytes 13.4 % 19.0 - 48.0 % Low February 28, 2025 Monocytes 4.8 % 3.0 - 10.0 % - February 28 25 Eosinophil 12.0 % 0.0 - 7.0 % High February 28 Metabolic/Renal Result Type Result Value Relevant Referen ce Range Interpretation Date Vitamin B12 543 pg/mL 211 - 911 pg/mL - October 04, 2024 Hemoglobin A1c 6.3 % 4.8 - 5.9 % High October 04, 2024 nPCR 1.17 g/kg/day No Reference Ran ge Provided - December 16, 2024 Chloride 101 mEq/L 96 - 108 mEq/L - November Bicarbonate 26 mEq/L 22 - 29 mEq/L - November Creatinine Clearance, Urine 8.5 mL/min 77.0 - 94.0 mL/min Low December 16 025 Urea Nitrogen, Urine, Timed 292 mg/dL No Reference Range Provided - December 16, 2024 BUN 55 mg/dL 6 - 19 mg/dL High December 16, 2024 Creatinine, Serum 4.70 mg/dL 0.60 - 1.30 mg/dL High December 16, 2024 BUN/Creat Ratio 11.7 10.0 - 20.0 - December 16, 2024 Sodium 141 mEq/L 136 - 145 mEq/L - November 302024 Potassium 3.3 mEq/L 3.5 - 5.1 mEq/L Low November 302024 Potassium 3.7 mEq/L 3.5 - 5.1 mEq/L - December 022024 Sodium 141 mEq/L 136 - 145 mEq/L - January 02, 2025 Creatinine, Serum 4.60 mg/dL 0.60 - 1.30 mg/dL High January 02, 2025 BUN/Creat Ratio 14.1 10.0 - 20.0 - January 02, 2025 Hemoglobin A1c 5.5 % 4.8 - 5.9 % - January 02, 2025 BUN 65 mg/dL 6 - 19 mg/dL High January 02, 2025 Bicarbonate 26 mEq/L 22 - 29 mEq/L - December Potassium 3.4 mEq/L 3.5 - 5.1 mEq/L Low January 02, 2025 Chloride 101 mEq/L 96 - 108 mEq/L - December Bicarbonate 27 mEq/L 22 - 29 mEq/L - February 07, 2025 Potassium 3.2 mEq/L 3.5 - 5.1 mEq/L Low February 07, 2025 Chloride 102 mEq/L 96 - 108 mEq/L - February 07, 2025 BUN 66 mg/dL 6 - 19 mg/dL High February 07 Sodium 142 mEq/L 136 - 145 mEq/L - February 07, 2025 Creatinine, Serum 5.25 mg/dL 0.60 - 1.30 mg/dL High February 07, 2025 BUN/Creat Ratio 12.6 10.0 - 20.0 - January BUN/Creat Ratio 12.5 10.0 - 20.0 - February Sodium 140 mEq/L 136 - 145 mEq/L - February 28, 2025 BUN 65 mg/dL 6 - 19 mg/dL High February 28 Creatinine, Serum 5.19 mg/dL 0.60 - 1.30 mg/dL High February 28, 2025 Bicarbonate 23 mEq/L 22 - 29 mEq/L - February 28, 2025 Potassium 3.3 mEq/L 3.5 - 5.1 mEq/L Low February 28, 2025 Chloride 102 mEq/L 96 - 108 mEq/L - February 28, 2025 Urea Nitrogen, Urine, Timed 271 mg/dL No Reference Range Provided - February 28, 2025 nPCR 1.44 g/kg/day No Reference Ran ge Provided - February 28, 2025 Creatinine Clearance, Urine 7.3 mL/min 77.0 - 94.0 mL/min Low February 28 Bone/Mineral Result Type Result Value Relevant Referen ce Range Interpretation Date Magnesium 2.0 mg/dL 1.6 - 2.6 mg/dL - April 05 024 Magnesium 2.0 mg/dL 1.6 - 2.6 mg/dL - June Vitamin D 25 Hydroxy 34.8 ng/mL 30.0 - 100.0 ng/mL - August 02, 2024 Magnesium 2.0 mg/dL 1.6 - 2.6 mg/dL - October 04, 2024 Vitamin D 25 Hydroxy 43.3 ng/mL 30.0 - 100.0 ng/mL - October 04, 2024 PTH-Intact, Plasma 330 pg/mL 16 - 80 pg/mL High Sep Corrected Ca x P Product 38 0 - 54 - December 16, 2024 Calcium, Total 8.0 mg/dL 8.4 - 10.2 mg/dL Low Dell edd2024 Phosphorus 4.4 mg/dL 2.6 - 4.5 mg/dL - November 302024 Ca x P Product 35 0 - 54 - November Calcium, Total 8.2 mg/dL 8.4 - 10.2 mg/dL Low 2024 PTH-Intact, Plasma 202 pg/mL 16 - 80 pg/mL High b ru2024 Alkaline Phosphatase 70 U/L 35 - 104 U/L - Fe bru2024 Magnesium 2.1 mg/dL 1.6 - 2.6 mg/dL - January 02, 2025 Corrected Ca x P Product 32 0 - - January 02 Phosphorus 3.5 mg/dL 2.6 - 4.5 mg/dL - January 02, 2025 Ca x P Product 31 0 - 54 - December Calcium, Total 8.9 mg/dL 8.4 - 10.2 mg/dL - Febr 2024 Calcium, Total 8.3 mg/dL 8.4 - 10.2 mg/dL Low Jerod h 2024 Phosphorus 4.6 mg/dL 2.6 - 4.5 mg/dL High February 07, 2025 Ca x P Product 38 0 - 54 - February 07, 2025 Corrected Ca x P Product 40 0 - 54 - February 07, 2025 Ca x P Product 43 0 - 54 - February 28, 2025 Calcium, Total 8.6 mg/dL 8.4 - 10.2 mg/dL - Apri l 2024 Phosphorus 5.0 mg/dL 2.6 - 4.5 mg/dL High February 28, 2025 Corrected Ca x P Product 44 0 - 54 - February 28, 2025 Liver/Nutrition Result Type Result Value Relevant Referen ce Range Interpretation Date Total Protein 5.8 g/dL 6.0 - 8.5 g/dL Low December 16, 2024 Albumin (BCG) 3.2 g/dL 3.5 - 5.2 g/dL Low December 16, 2024 Globulin (Calc) 2.6 g/dL 2.0 - 4.0 g/dL - 2024 A/G Ratio 1.2 1.0 - 2.0 - December 16 Glucose 172 mg/dL 70 - 100 mg/dL High November Albumin (BCG) 3.6 g/dL 3.5 - 5.2 g/dL - 2024 Total Protein 6.4 g/dL 6.0 - 8.5 g/dL - 2024 Globulin (Calc) 2.8 g/dL 2.0 - 4.0 g/dL - 2024 A/G Ratio 1.3 1.0 - 2.0 - January 02 Glucose 122 mg/dL 70 - 100 mg/dL High December Globulin (Calc) 2.9 g/dL 2.0 - 4.0 g/dL - February 07, 2025 A/G Ratio 1.2 1.0 - 2.0 - February 07, 2025 Glucose 139 mg/dL 70 - 100 mg/dL High February 07, 2025 Total Protein 6.3 g/dL 6.0 - 8.5 g/dL - January 282024 Albumin (BCG) 3.4 g/dL 3.5 - 5.2 g/dL Low January 282024 Glucose 99 mg/dL 70 - 100 mg/dL - February 28, 2025 Total Protein 6.8 g/dL 6.0 - 8.5 g/dL - February Globulin (Calc) 3.0 g/dL 2.0 - 4.0 g/dL - February 28, 2025 Albumin (BCG) 3.8 g/dL 3.5 - 5.2 g/dL - February A/G Ratio 1.3 1.0 - 2.0 - February 28, 2025 Lipid Result Type Result Value Relevant Referen ce Range Interpretation Date Triglycerides 125 mg/dL 0 - 149 mg/dL - December 29, 2024 Cholesterol, Total 146 mg/dL 0 - 199 mg/dL - Nov VLDL (Calculated) 25 mg/dL 10 - 30 mg/dL - 2024 HDL 34 mg/dL No Reference Ran ge Provided - December 29, 2024 Cholesterol HDL Ratio 4.3 0.0 - 4.5 - Nov LDL, (Calculated) 87 mg/dL 0 - 99 mg/dL - 2024 Immunochemistry Result Type Result Value Relevant Reference Range Interpre tation Date HCV s/co ratio 0.06 0.00 - 0.79 - October 04, 2024 Trace Elements Result Type Result Value Relevant Reference Range Interpre tation Date Aluminum < 5 mcg/L 0 - 10 mcg/L - October 04, 2024 Peritoneal Dialysis Testing Result Type Result Value Relevant Referen ce Range Interpretation Date D P Ratio PET 0 Hr 0.00 No Reference Range Provided - November 06, 2023 D DO Ratio PET 0 Hr 1.00 No Reference Range Provided - November 06, 2023 D P Ratio PET 4 Hr 0.70 No Reference Range Provided - November 06, 2023 D DO Ratio PET 4 Hr 0.36 No Reference Range Provided - November 06, 2023 Creatinine Transport Average High No Referenc e Range Provided - November 06, 2023 Glucose Transport Average High No Reference R olga Provided - November 06, 2023 Total Urea Nitrogen, Urine 5.0 g/24 hr 12.0 - 20.0 g/24 hr Low June 07, 2024 Urea Clear, Urine Norm 5.8 mL/min 64.0 - 99.0 mL/min Low June 07, 2024 Urea Clearance, Urine 5.2 mL/min 64.0 - 99.0 mL/min Low June 07, 2024 Urea Clear, Urine Norm Wkly 52 L/wk No Reference Range Provided - June 07, 2024 Creatinine, Urine 41.6 mg/dL No Reference R olga Provided - June 07, 2024 Total Creatinine, Urine 0.6 g/24 hr 0.5 - 1.6 g/24 hr - June 07, 2024 Creat Clear, Urine Norm Wkly 109 L/wk No Reference Range Provided - June 07, 2024 Creat Clear, Urine Weekly 97.8 L/wk No Reference Range Provided - June 07, 2024 Wkly Creat Cl (Resid + Dial) 143 L/wk No Reference Range Provided - June 07, 2024 Urea Nitrogen, PDF 24 Hr 3886.0 mg/24 hr No Reference Range Provided - June 07, 2024 PD Kt/V 24 Hr Dialysate Urea 58 mg/dL No Reference Range Provided - June 07, 2024 Urea Clearance, PD Fluid 4.0 mL/min No Reference Range Provided - June 07, 2024 Urea Clearance, PDF Norm 4.5 mL/min No Reference Range Provided - June 07, 2024 Urea Clear, Total Norm Wkly 92 L/wk No Reference Range Provided - June 07, 2024 Urea Clear, PDF Norm Wkly 40 L/wk No Reference Range Provided - June 07, 2024 Creatinine, PDF 24 Hr 180.9 mg/24 hr No Reference Range Provided - June 07, 2024 Creatinine, PD Fluid, 24 Hr Uncorrected 2.8 mg/dL No Reference Range Provided - June 07, 2024 Creatinine, PDF Timed Cor 2.7 mg/dL No Reference Range Provided - June 07, 2024 Glucose, PDF Timed 670 mg/dL No Reference Range Provided - June 07, 2024 Creatinine Clear, PDF 3.0 mL/min No Reference Range Provided - June 07, 2024 Creatinine Clear, PDF Norm 3.4 mL/min No Reference Range Provided - June 07, 2024 Creat Clear, PDF Weekly 30 L/wk No Reference Range Provided - June 07, 2024 Kt/V, Residual 1.86 No Reference Ran ge Provided - June 07, 2024 PNA 82 g/day No Reference Ran ge Provided - June 07, 2024 Total Urea Nitrogen, Urine 3.3 g/24 hr 12.0 - 20.0 g/24 hr Low August 30, 2024 Urea Clear, Urine Norm 5.7 mL/min 64.0 - 99.0 mL/min Low August 30, 024 Urea Clearance, Urine 5.1 mL/min 64.0 - 99.0 mL/min Low August 30, 024 Urea Clear, Urine Norm Wkly 52 L/wk No Reference Range Provided - August 30, 2024 Creatinine, Urine 40.8 mg/dL No Reference R olga Provided - August 30, 2024 Total Creatinine, Urine 0.5 g/24 hr 0.5 - 1.6 g/24 hr - August 30 Creat Clear, Urine Norm Wkly 93 L/wk No Reference Range Provided - August 30, 2024 Creat Clear, Urine Weekly 83.7 L/wk No Reference Range Provided - August 30, 2024 Wkly Creat Cl (Resid + Dial) 125 L/wk No Reference Range Provided - August 30, 2024 Urea Nitrogen, PDF 24 Hr 2816.0 mg/24 hr No Reference Range Provided - August 30, 2024 PD Kt/V 24 Hr Dialysate Urea 44 mg/dL No Reference Range Provided - August 30, 2024 Urea Clearance, PD Fluid 4.3 mL/min No Reference Range Provided - August 30, 2024 Urea Clearance, PDF Norm 4.8 mL/min No Reference Range Provided - August 30, 2024 Urea Clear, Total Norm Wkly 95 L/wk No Reference Range Provided - August 30, 2024 Urea Clear, PDF Norm Wkly 43 L/wk No Reference Range Provided - August 30, 2024 Creatinine, PDF 24 Hr 172.8 mg/24 hr No Reference Range Provided - August 30, 2024 Creatinine, PD Fluid, 24 Hr Uncorrected 2.8 mg/dL No Reference Range Provided - August 30, 2024 Creatinine, PDF Timed Cor 2.7 mg/dL No Reference Range Provided - August 30, 2024 Glucose, PDF Timed 619 mg/dL No Reference Range Provided - August 30, 2024 Creatinine Clear, PDF 2.9 mL/min No Reference Range Provided - August 30, 2024 Creatinine Clear, PDF Norm 3.2 mL/min No Reference Range Provided - August 30, 2024 Creat Clear, PDF Weekly 29 L/wk No Reference Range Provided - August 30, 2024 Kt/V, Residual 1.85 No Reference Ran ge Provided - August 30, 2024 PNA 62 g/day No Reference Ran ge Provided - August 30, 2024 Creatinine Clearance - Measured PD 98 L/wk No Reference Range Provided - December 16, 2024 Total Urea Nitrogen, Urine 3.4 g/24 hr 12.0 - 20.0 g/24 hr Low December 16, 2024 Urea Clear, Urine Norm 4.7 mL/min 64.0 - 99.0 mL/min Low December 16 025 Urea Clearance, Urine 4.2 mL/min 64.0 - 99.0 mL/min Low December 16 025 Urea Clear, Urine Norm Wkly 43 L/wk No Reference Range Provided - December 16, 2024 Creatinine, Urine 45.3 mg/dL No Reference R olga Provided - December 16, 2024 Total Creatinine, Urine 0.5 g/24 hr 0.5 - 1.6 g/24 hr - December 16 Creat Clear, Urine Norm Wkly 86 L/wk No Reference Range Provided - December 16, 2024 Creat Clear, Urine Weekly 77.6 L/wk No Reference Range Provided - December 16, 2024 Wkly Creat Cl (Resid + Dial) 109 L/wk No Reference Range Provided - December 16, 2024 Urea Nitrogen, PDF 24 Hr 2205.0 mg/24 hr No Reference Range Provided - December 16, 2024 PD Kt/V 24 Hr Dialysate Urea 35 mg/dL No Reference Range Provided - December 16, 2024 Urea Clearance, PD Fluid 2.8 mL/min No Reference Range Provided - December 16, 2024 Urea Clearance, PDF Norm 3.1 mL/min No Reference Range Provided - December 16, 2024 Urea Clear, Total Norm Wkly 71 L/wk No Reference Range Provided - December 16, 2024 Urea Clear, PDF Norm Wkly 28 L/wk No Reference Range Provided - December 16, 2024 Creatinine, PDF 24 Hr 138.6 mg/24 hr No Reference Range Provided - December 16, 2024 Creatinine, PD Fluid, 24 Hr Uncorrected 2.4 mg/dL No Reference Range Provided - December 16, 2024 Creatinine, PDF Timed Cor 2.2 mg/dL No Reference Range Provided - December 16, 2024 Glucose, PDF Timed 954 mg/dL No Reference Range Provided - December 16, 2024 Creatinine Clear, PDF 2.0 mL/min No Reference Range Provided - December 16, 2024 Creatinine Clear, PDF Norm 2.3 mL/min No Reference Range Provided - December 16, 2024 Creat Clear, PDF Weekly 20 L/wk No Reference Range Provided - December 16, 2024 Kt/V, Residual 1.52 No Reference Ran ge Provided - December 16, 2024 PNA 57 g/day No Reference Ran ge Provided - December 16, 2024 Creatinine Clearance - Measured PD 99 L/wk No Reference Range Provided - February 28, 2025 Total Urea Nitrogen, Urine 3.5 g/24 hr 12.0 - 20.0 g/24 hr Low February 28, 2025 Urea Clear, Urine Norm 4.2 mL/min 64.0 - 99.0 mL/min Low February 28 Urea Clearance, Urine 3.8 mL/min 64.0 - 99.0 mL/min Low February 28 Urea Clear, Urine Norm Wkly 38 L/wk No Reference Range Provided - February 28, 2025 Creatinine, Urine 38.1 mg/dL No Reference R olga Provided - February 28, 2025 Total Creatinine, Urine 0.5 g/24 hr 0.5 - 1.6 g/24 hr - February 28, 2025 Creat Clear, Urine Norm Wkly 74 L/wk No Reference Range Provided - February 28, 2025 Creat Clear, Urine Weekly 66.5 L/wk No Reference Range Provided - February 28, 2025 Wkly Creat Cl (Resid + Dial) 110 L/wk No Reference Range Provided - February 28, 2025 Urea Nitrogen, PDF 24 Hr 3752.0 mg/24 hr No Reference Range Provided - February 28, 2025 PD Kt/V 24 Hr Dialysate Urea 56 mg/dL No Reference Range Provided - February 28, 2025 Urea Clearance, PD Fluid 4.0 mL/min No Reference Range Provided - February 28, 2025 Urea Clearance, PDF Norm 4.4 mL/min No Reference Range Provided - February 28, 2025 Urea Clear, Total Norm Wkly 78 L/wk No Reference Range Provided - February 28, 2025 Urea Clear, PDF Norm Wkly 40 L/wk No Reference Range Provided - February 28, 2025 Creatinine, PDF 24 Hr 241.2 mg/24 hr No Reference Range Provided - February 28, 2025 Creatinine, PD Fluid, 24 Hr Uncorrected 3.7 mg/dL No Reference Range Provided - February 28, 2025 Creatinine, PDF Timed Cor 3.6 mg/dL No Reference Range Provided - February 28, 2025 Glucose, PDF Timed 668 mg/dL No Reference Range Provided - February 28, 2025 Creatinine Clear, PDF 3.2 mL/min No Reference Range Provided - February 28, 2025 Creatinine Clear, PDF Norm 3.6 mL/min No Reference Range Provided - February 28, 2025 Creat Clear, PDF Weekly 32 L/wk No Reference Range Provided - February 28, 2025 Kt/V, Residual 1.35 No Reference Ran ge Provided - February 28, 2025 PNA 70 g/day No Reference Ran ge Provided - February 28, 2025 Infectious Diseases Result Type Result Value Relevant Referen ce Range Interpretation Date HCV Ab (anti-HCV) Nonreactive No Reference R olga Provided - October 04, 2024 Hep B Surface Ab (anti-HBs) 20 mIU/mL No Reference Range Provided - October 04, 2024 Hep B Surface Ag (HBsAg) Negative No Reference Range Provided - February 28, 2025 DIALYSIS PRESCRIPTION CAPD Data Element Value Order Date/Time February 07, 2025 Frequency 7X Week Treatment Days [id number] n Estimated Dry Weight 60 kg Calcium Content in Bag (mEq/L) 2.5 mEq/L Magnesium Content in Bag (mEq/L) 0.5 mEq /L Dextrose Content in Bag % 1.5; 2.5; 4.25 % Total Number of Exchanges 3 Daytime Fill Volume 1800 mL Minimum Dwell Time 360 min Nighttime Fill Volume 1500 mL Dialysis Access Peritoneal Dialysis- PD Catheter-Double Cuff Coiled, Left Lower Quadrant of Abdomen Access Placed on July 23, 2023 IMMUNIZATIONS Vaccine Date Dose Route Status PREVNAR July 15, 2024 0.5 mL Intramuscular Comple chhaya HEPLISAV-B, series 2 of 4 July 15, 2023 20.0 mcg Intra muscular Completed HEPLISAV-B, series 1 of 4 June 17, 2023 20.0 mcg Intramu scular Completed TRANSPLANT WAITLIST STATUS No Information on Transplant Waitlist Status ADVANCE DIRECTIVES Directive Description Ordered By Effective Date Resuscitation status Full Code Omar Singer Oct [id number]
== END 2025-03-13 09:18 | disposition home or self-care (01) ==
LOC: ANHIMG 09:20
PROVIDERS: PCP Internal Medicine; Visit Provider Internal Medicine
DX: N63.11 Unspecified lump in the right breast, upper outer quadrant (principal); M81.0 Age-related osteoporosis without current pathological fracture; Z78.0 Asymptomatic menopausal state
CPT/HCPCS: 76642; 77062; 77066; 77080; G0279

== ENCOUNTER 2025-05-03 07:13 | Outpatient (CLI) | payer MEDICARE, OTHER, SELFPAY ==
--- NOTE | ~2025-05-03 | MMUS_ITS ---
PROCEDURE: MM post biopsy diagnostic RT, US breast biopsy RT w image CLINICAL HISTORY: 70-year-old female with suspicious new right breast mass at 10:00, 4 cm from the ni pple presents for ultrasound-guided core needle biopsy procedure. COMPARISON: 03/13/2025 Following informed consent including risks, benefits, and possible complications, the patient was bro ught to the ultrasound suite. A time-out procedure was performed. [facility], redemonstrating irregular shaped hypoechoic mass at 10:00, 4 cm from the ni pple. The patient was prepped and draped in the usual sterile fashion. 1% lidocaine was instilled into the subcutaneous tissues. 1% lidocaine with epinephrine was injected into the deep tissues just inferior to the lesion. Approximately 15cc lidocaine was administered. A small skin bebeto was made. Multiple co re samples were obtained with a 14-gauge multi pass biopsy needle. A post biopsy metal marker was ashley enrico at the biopsy site. Postprocedural mammogram of the right breast in craniocaudal and mediolateral projections reveal the post biopsy metal marker in good position. The patient tolerated the procedure well and was without i mmediate postprocedural complications. IMPRESSION: Successful ultrasound guided biopsy of right breast mass. A post biopsy metal marker was placed at the biopsy site, which is seen on postprocedural mammogram. The patient tolerated the procedure well without immediate postprocedure complications. The patient w as given postprocedural instructions and sent home in stable condition. Reviewed, dictated and finalized at location B. IMPRESSION: Successful ultrasound guided biopsy of right breast mass. A post bi opsy metal marker was placed at the biopsy site, which is seen on postprocedura l mammogram. The patient tolerated the procedure well without immediate postprocedure compli cations. The patient was given postprocedural instructions and sent home in sta ble condition.
--- NOTE | 2025-05-03 07:17 | S_PTH ---
PATIENT: Camila Layton LOC: [facility] U#:[id number] AGE/SX: 70/F ROOM: RE05/03/[address]: Vishal IrvingMD : 1955 BED: DIS: 05/03/2025 SPEC #: [id number] RECD: 05/03/25 10:22 STATUS: MERLENE REJason #: [id number] ELVIN: 05/03/25 07:[address]: Aristides,Vishal May DEPT: [facility] Surgical RECD BY: Bronwyn Sauceda Tissues: A - Breast Biopsy Procedures: Hematoxylin and Eosin Stain Gross and Microscopic Level 4 ER-60 CO-60 MIB-60 HER 2-60
--- OUTSIDE RECORDS SUMMARY | 2025-05-03 07:18 | XMS_ITS ---
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 Name Role Phone Enmanuel Omar Unavailable [phone] Medications Medication SIG (Take, Route, Frequency, Duration) Notes Start Date End Date Status Sodium Bicarbonate 650 MG TAKE 1 TABLET BY MOUTH TWICE DAILY for 30 Active Ferrous Sulfate 325 (65 Fe) MG 1 tablet Orally twice a day for 90 day(s) 03/13/2023 Active Lasix 40 MG 1 tablet Orally twic e a day for 90 day(s) 03/13/2023 Active Encounters Encounter Location Date Provider Diagnosis [place] [facility] [address] [facility] [address] [place] [address] 06/24/2024 Omar Singer Chronic kidney disease, stage 4 (severe) N18.4 ; Essential (primary) hypertension I10 ; Proteinuria, unspecified R80.9 ; Other microscopic hematuria R31.29 ; Urinary tract infection, site not specified N39.0 ; Secondary hyperparathyroidism, not elsewhere classified E21.1 and Retention of urine, unspecified R33.9 Assessments Encounter Date Diagnosis (ICD Code) Assessment Notes Treatment Notes Treatment Clinical Notes Section Notes 06/24/2024 Chronic kidney disease, stage 4 (severe) (ICD-10 - N18.4) 06/24/2024 Essential (primary) hypertension (ICD-10 - I10) 06/24/2024 Proteinuria, unspecified (ICD-10 - R80.9) 06/24/2024 Other microscopic hematuria (ICD-10 - R31.29) 06/24/2024 Urinary tract infection, site not specified (ICD-10 - N39.0) 06/24/2024 Secondary hyperparathyroidi sm, not elsewhere classified (ICD-10 - E21.1) 06/24/2024 Retention of urine, unspecified (ICD-10 - R33.9) Plan Of Treatment No Information Progress Notes * SAIDA HAMILTONDOB:1955 ( 70 yo F)Acc No.[id number]:06/24/2024 Patient: SAIDA FIELD Provider: Ladonna MARIE MD, F.Carrie.C.P, F.A.S.N. :1955 A ge:69 Y S ex:Female Date:06/24/2024 Address:[facility] Subjective: * Chief Complaints: Objective: Assessment: * Assessment: 1. C hronic kidney disease, stage 4 (severe) - N18.4 (Primary) 2 . E ssential (primary) hypertension - I10 3 . P roteinuria, unspecified - R80.9 4 . O ther microscopic hematuria - R31.29 5 . U rinary tract infection, site not specified - N39.0 6 . S econdary hyperparathyroidism, not elsewhere classified - E21.1 7 . R etention of urine, unspecified - R33.9 Plan: * Billing Information: * Visit Code: 43915 Office Visit, Est Pt., Level 5. * Procedure Codes: * Electronic signature of Silvia Singer MD on 05/03/2025 at 07:18 AM CDT Sign off status: Pending * Provider: Ladonna MARIE MD, F.Carrie.C.P, F.A.S.N. Date: 06/24/2024 Generated for Printing/Faxing/eTransmitting on: 05/03/2025 07:18 AM CDT
--- OUTSIDE RECORDS SUMMARY | 2025-05-03 07:18 | XMS_ITS | Referral Summary ---
Author Organization [facility] Address [address] [place] [address] Care Team Providers Care Bookmaker Map Name Role Phone Vishal Irving MD Primary Care Provider [phone] Gabriele Tatum MD Unavailable [phone] Allergies Active Allergy Reactions Criticality Noted Date Comments Hydralazine Shortness of breath High 05/15/2023 Iodinated Contrast Media Hives Medium 05/27/2022 Pollen Extracts Other (See comments) Reaction: NASAL CONGESTION, Medications telmisartan (MICARDIS) 80 mg tablet Take 1 tablet (80 mg total) by mouth daily Active amLODIPine (NORVASC) 10 mg tablet Take 1 tablet (10 mg total) by mouth daily Active clopidogreL (PLAVIX) 75 mg tablet Take 1 tablet (75 mg total) by mouth daily Active aspirin 81 mg enteric coated tablet Take 1 tablet (81 mg total) by mouth daily Active ergocalciferol (VITAMIN D) 50,000 unit capsule Take 1 capsule (50,000 Units total) by mouth once a week Takes on Sundays Active ALPRAZolam (XANAX) 0.5 mg tablet Take 1 tablet (0.5 mg total) by mouth as needed for anxiety Active triamcinolone (KENALOG) 0.5 % cream Apply 1 application topically 3 (three) times a day Lower extremity Active doxazosin (CARDURA) 4 mg tablet Take 1 tablet (4 mg total) by mouth nightly 03/06/20 Active ezetimibe (ZETIA) 10 mg tablet Take 1 tablet (10 mg total) by mouth daily 03/06/20 Active calcitRIOL (ROCALTROL) 0.25 mcg capsule Take 1 capsule (0.25 mcg total) by mouth daily 03/13/20 Active metoprolol tartrate (LOPRESSOR) 50 mg immediate release tablet Take 1 tablet in morning. Take 2 tablets at night 60 tablet 05/18/20 Active sevelamer (RENVELA) 800 mg tabletIndications:Colin al Osteodystrophy with Hyperphosphatemia Take 2 tablets (1,600 mg total) by mouth 3 (three) times a day with meals 180 tablet 05/18/20 Active Active Problems Problem Noted Date Diagnosed Date Acute renal failure superimp osed on chronic kidney disease, on chronic dialysis 05/18/2023 End-stage renal disease on hemodialysis 05/14/20 Bandemia 05/14/2023 Anemia due to chronic kidney disease, on chronic dialysis 05/14/2023 CAD (coronary artery disease) 05/14/2023 Tobacco abuse 05/14/2023 ESRD (end stage renal disease) on dialysis 05/14 Tobacco use 05/28/2022 Assessment & Plan (05/28/2022 3:09 AM CDT): Patient's smokes half a pack per day currently but up to 1 pack per day since her teens. CKD (chronic kidney disease) stage 4, GFR 15-29 ml/min 05/28/2022 Assessment & Plan (05/28/2022 3:13 AM CDT): GFR of 23 per PCP note from earlier this month. Patient follows with Dr. Singer Left-sided weakness 05/27/2022 Assessment & Plan (05/28/2022 3:08 AM CDT): Left hand obviously weaker than the right. Patient has a history of CVA with residual right upper extremity weakness. Ultrasound carotid and echo was ordered. Will order MRI of brain. Patient will need p.o. Xanax 30 minutes prior to MRI. Neurology has been consulted. PT, OT and speech eval. Patient already on aspirin and Plavix. Anxiety 05/27/2022 Assessment & Plan (05/28/2022 3:07 AM CDT): Continue p.r.n. Xanax. Patient will need Xanax prior to MRI. Hyperlipidemia 05/27/2022 Assessment & Plan (05/28/2022 3:07 AM CDT): Will start patient on statin Diabetes mellitus 09/16/2018 Primary hypertension 08/22/2014 Assessment & Plan (05/28/2022 3:06 AM CDT): Uncontrolled. Continue Coreg with hold parameters. Patient is on Arb however we do not have a recent baseline creatinine. Patient has CKD 4 at baseline from review of EMR with GFR of 23 per PCP note. Norvasc was started. Patient received IV hydralazine but felt short of breath after like she did when she received medication for stress test. Will DC IV hydralazine. Continue to monitor and adjust medications as needed. Cerebrovascular accident (CVA) Social History Tobacco Use Types Packs/Day Years Used Date Smoking Tobacco: Former Cigarettes 0.5 53.2 1 970 - 02/03/2023 Smokeless Tobacco: Never Alcohol Use Standard Drinks/Week Comments Yes 2 (1 standard drink = 0.6 oz pur e alcohol) occasionhally Social Connection and Isolat ion Panel [NHANES] Answer Date Recorded In a typical week, how many times do you talk on the phone with family, friends, or neighbors? More than three times a week 05/18/2023 How often do you get togethe r with friends or relatives? More than three times a week 05/18/2023 How often do you attend chur ch or confucianist services? Never 05/18/2023 Do you belong to any clubs o r organizations such as yazidi groups, unions, fraternal or athletic groups, or school groups? Yes 05/18/2023 How often do you attend meet ings of the clubs or organizations you belong to? More than 4 times per year 05/18/2023 Are you , , di vorced, , never , or living with a partner? 05/18/2023 AUDIT-C Answer Date Recorded Q1: How often do you have a drink containing alcohol? Never 05/18/2023 Q2: How many drinks containi ng alcohol do you have on a typical day when you are drinking? Patient does not drink Q3: How often do you have si x or more drinks on one occasion? Never 05/18/2023 Overall Financial Resource Strain (CARDIA) Answe r Date Recorded How hard is it for you to pa y for the very basics like food, housing, medical care, and heating? Not hard at all 05/18/2023 [facility] - Occupational Stress Questionnaire Answer Date Recorded Do you feel stress - tense, restless, nervous, or anxious, or unable to sleep at night because your mind is troubled all the time - these days? To some extent 05/18/2023 Exercise Vital Sign Answer Date Recorde d On average, how many days pe r week do you engage in moderate to strenuous exercise (like a brisk walk)? 0 days 05/18/2023 On average, how many minutes do you engage in exercise at this level? 0 min 05/18/2023 Hunger Vital Sign Answer Date Recorded Within the past 12 months, y ou worried that your food would run out before you got the money to buy more. Never true 05/18/20 23 Within the past 12 months, t he food you bought just didn't last and you didn't have money to get more. Never true 05/18/2023 PRAPARE - Transportation Answer Date Re corded In the past 12 months, has l ack of transportation kept you from medical appointments or from getting medications? No 04/30 In the past 12 months, has l ack of transportation kept you from meetings, work, or from getting things needed for daily living? No 05/18/2023 Housing Stability Vital Sign Answer Salty e Recorded In the last 12 months, was t here a time when you were not able to pay the mortgage or rent on time? No 05/18/2023 In the last 12 months, how many places have you lived? 1 05/18/2023 In the last 12 months, was t here a time when you did not have a steady place to sleep or slept in a alf (including now)? No 05/18/2023 Personal Safety Answer Date Recorded Have you ever been in or are you currently in a harmful physical or emotional relationship or is someone making you feel afraid or unsafe? Denies 11/09/2023 Education Answer Date Recorded What is the highest level of school you have completed or the highest degree you have received? 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 Gender Identity Not on file Sexual Orientation Not on file Last Filed Vital Signs Vital Sign Reading Time Taken Comments Blood Pressure 152/78 11/09/2023 5:42 PM SAFETY PIN ASSEMBLING MACHINE OPERATOR Pulse 72 11/09/2023 5:42 PM SAFETY PIN ASSEMBLING MACHINE OPERATOR Temperature 37.1 C (98.7 F) 11/09/2023 3:44 PM SAFETY PIN ASSEMBLING MACHINE OPERATOR Respiratory Rate 18 11/09/2023 5:42 PM SAFETY PIN ASSEMBLING MACHINE OPERATOR Oxygen Saturation 100% 11/09/2023 5:42 PM SAFETY PIN ASSEMBLING MACHINE OPERATOR Inhaled Oxygen Concentration - - Weight 55 kg (121 lb 4.1 oz) 11/09/2023 10:34 AM SAFETY PIN ASSEMBLING MACHINE OPERATOR Height 149.9 cm (4' 11.02) 11/09/2023 10:34 AM SAFETY PIN ASSEMBLING MACHINE OPERATOR Body Mass Index 24.48 11/09/2023 10:34 AM SAFETY PIN ASSEMBLING MACHINE OPERATOR Plan of Treatment Not on file Medical Devices Implanted Type Area Production Machine Operator Device Identifier Shelf Expiration Date Model / Serial / Lot [employer] Duramax Vascpak Safesheath D-Pro 15.5fr 28cm Kit Catheter [id number] - [id number] Implanted:Qty: 1 on 05/14/[address] [facility] [employer] 07/30/2025 [id number] / / [id number] Procedures Procedure Name Priority Date/Time Associated Diagnosis Comments EGFR STAT 11/09/2023 10:48 AM SAFETY PIN ASSEMBLING MACHINE OPERATOR HEMOGLOBIN A1C Add-On 05/15/2023 3:07 PM CDT HEPATITIS PANEL, ACUTE Routine 05/15/2023 8:30 AM CDT LIPID PANEL Routine 05/29/2022 5:38 AM CDT from Last 3 Months or Most Recently Relevant to Health Maintenance Results * eGFR (11/09/2023 10:48 AM SAFETY PIN ASSEMBLING MACHINE OPERATOR) eGFR 10 mL/min/1. 73 m2 [facility] Comment: Interpretive Data Reference Interval Normal >/= 90 mL/min/1.73m2 Mildly decreased* 60 - 89 mL/min/1.73m2 Mildly to moderately decreased 45 - 59 mL/min/1.73m2 Moderately to severely decreased 30 - 44 mL/min/1.73m2 Severely decreased 15 - 29 mL/min/1.73m2 Kidney Failure < 15 mL/min/1.73m2 *Relative to young adult level Estimated glomerular filtration rate is determined by the 2020 CKD-EPI equation recommended by the National Kidney Foundation (A Unifying Approach to GFR Estimation: Recommendations of the NKF-ASK Task Force on Reassessing the Inclusion of Race in Diagnosing Kidney Disease, JASN 2020). The CKD-EPI equation should not be used for patients with unstable renal function and has not been validated in children and those over 70. Current interpretive data was last reviewed 2021. Blood 11/09/2023 10:4 8 AM SAFETY PIN ASSEMBLING MACHINE OPERATOR 11/09/2023 11:17 AM SAFETY PIN ASSEMBLING MACHINE OPERATOR Marly JOE LAB BLOOD ORDERABLES Final Resu lt [facility] [id number] Department [place] [address] * (ABNORMAL) Hemoglobin A1c (05/15/2023 3:07 PM CDT) Hgb A1C 5.8(H) 4.0 - 5.6 % [facility] Estimated Average Glucose 120 mg/dL [facility] Comment: The ADA recommends reporting an estimated Average Glucose (eAG) with all Hemoglobin A1c results using the equation derived from a study of 507 normal and diabetic adults. Minority populations were underrepresented and children were not included. (Diabetes Care 31:6645-7073, 2008). The eAG is not equivalent to a fasting glucose. Blood 05/15/2023 3:07 PM CDT 05/15/2023 3:42 PM CDT Jazmine Cortes MD LAB BLOOD ORDERABLES Final Re sult Performing Organization Address [facility] Co de Phone Number [facility] [phone] [place] [address] * Hepatitis panel, acute (05/15/2023 8:30 AM CDT) Hep A IgM Nonreactive Nonreactive [facility] Comment: Interpretive Data: If Hep A IgM Ab is reported as Equivocal, a new sample should be drawn in two weeks for testing. Current interpretive data was last revised on 20. Hep B core IgM Nonreactive Nonreactive [facility] Comment: Interpretive Data If HepB Core IgM Ab is reported as Equivocal, a new sample should be drawn in two weeks for testing. Current interpretive data was last revised on 20. Hep C Ab Nonreactive Nonreactive [facility] Comment: Interpretive Data Nonreactive: Antibodies to HCV not detected. Does NOT exclude the possibility of recent exposure to HCV. Equivocal: Equivocal for HCV antibodies. Supplemental molecular testing will be automatically performed to determine infection status in accordance with current CDC screening recommendations. Reactive: Positive for HCV antibodies. This may represent current or past HCV infection. Supplemental molecular testing will be automatically performed to determine current infection status in accordance with current CDC screening recommendations. Interpretive data was last revised on 2020. HepBsAg Nonreactive Nonreactive [facility] Blood 05/15/2023 8:30 AM CDT 05/15/2023 8:35 AM CDT Omar Singer MD LAB MICROBIOLOGY - GENERAL ORD ERABLES Final Result Performing Organization Address City/[facility]/ZIP Co de Phone Number [facility] [id number] Department [place] [address] * (ABNORMAL) Lipid panel (05/29/2022 5:38 AM CDT) Cholesterol 176 30 - 199 mg/dL [facility] ([facility]) Comment: Interpretive Data Ages < or = 19 years Acceptable: <170 mg/dL Borderline high: 170-199 mg/dL High: >or= 200 mg/dL Ages > or = 20 years Desirable: <200 mg/dL Borderline high: 200-239 mg/dL High: >or= 240 mg/dL Literature References: 1. Expert Panel on Integrated Guidelines for Cardiovascular Health and Risk Reduction in Children and Adolescents. Pediatrics 2011;128:S213 2. NCEP Expert Panel. Circulation 2004;110:227 Current Interpretive Data was last revised on 2018. Triglycerides 114 <=149 mg/dL [facility] (BUDDY) Comment: Interpretive Data Ages < or = 9 years Acceptable: <75 mg/dL Borderline high: 75-99 mg/dL High: >or= 100 mg/dL Ages 10 to 20 years Acceptable: <90 mg/dL Borderline high: 90-129 mg/dL High: >or= 130 mg/dL Ages > or = 20 years Desirable: <150 mg/dL Borderline high: 150-199 mg/dL High: 200-499 mg/dL Very high: >or= 499 mg/dL Literature References: 1. Expert Panel on Integrated Guidelines for Cardiovascular Health and Risk Reduction in Children and Adolescents. Pediatrics 2011;128:S213 2. NCEP Expert Panel. Circulation 2004;110:227 Current Interpretive Data was last revised on 2018. HDL 37(L) >=40 mg/dL [facility] ([place]) Comment: Interpretive Data Ages < or = 19 years Acceptable: >45 mg/dL Borderline low: 40-45 mg/dL Low: <40 mg/dL Ages > or = 20 years Desirable: >or= 60 mg/dL Low: <40 mg/dL Literature References: 1. Expert Panel on Integrated Guidelines for Cardiovascular Health and Risk Reduction in Children and Adolescents. Pediatrics 2011;128:S213 2. NCEP Expert Panel. Circulation 2004;110:227 Current Interpretive Data was last revised on 2018. LDL, calculated 116 <=129 mg/dL [facility] ([place]DY) Comment: Interpretive Data Ages < or = 19 years Acceptable: <110 mg/dL Borderline high: 110-129 mg/dL High: >or= 130 mg/dL Ages > or = 20 years Optimal: <100 mg/dL Near optimal: 100-129 mg/dL Borderline high: 130-159 mg/dL High: >160 mg/dL Literature References: 1. Expert Panel on Integrated Guidelines for Cardiovascular Health and Risk Reduction in Children and Adolescents. Pediatrics 2011;128:S213 2. NCEP Expert Panel. Circulation 2004;110:227 Current Interpretive Data was last revised on 2018. Non-HDL Cholesterol 139 mg/dL [facility] ([place]DY) Comment: Interpretive Data Ages < or = 19 years Acceptable: <120 mg/dL Borderline high: 120-144 mg/dL High: >145 mg/dL Ages > or = 20 years When triglycerides are >200 mg/dL, Non-HDL cholesterol is a secondary target of therapy with treatment goals that are 30 mg/dL greater than the LDL cholesterol target. Literature References: 1. Expert Panel on Integrated Guidelines for Cardiovascular Health and Risk Reduction in Children and Adolescents. Pediatrics 2011;128:S213 2. NCEP Expert Panel. Circulation 2004;110:227 Current Interpretive Data was last revised on 2018. Chol/HDL ratio 5 [facility] (BUDDY) Blood 05/29/2022 5:38 AM CDT 05/29/2022 5:47 AM CDT Gabriele Tatum MD LAB BLOOD ORDERABLES nal Result [facility] ([place]UDDY) 1 [facility] Department [place] [address] from Last 3 Months or Most Recently Relevant to Health Maintenance Insurance MEDICARE [facility] [place] [address] [place] [address] MEDICARE [facility] [place] [place] [address] MEDICARE [facility] Advance Directives For more information, please contact: [phone] * Full Code (Latest Code Status on File) Date Activated Date Inactivated Comments 05/14/2023 7:40 PM 05/18/2023 7:36 PM * Full Code Date Activated Date Inactivated Comments 05/27/2022 5:20 PM 05/29/2022 8:30 PM Care Teams Bookmaker Map Relationship Specialty Start Date End Date Vishal Irving MD PCP - General 05/27/22 Gabriele Tatum MD [address] [place] [address] [place] [address] Consulting Physician Neurology 05/29/22
--- OUTSIDE RECORDS SUMMARY | 2025-05-03 07:18 | XMS_ITS | Clinical Summary ---
Author Organization [facility] Address [address] [place] [address] Care Team Providers Care Chopper Operator Name Role Phone Vishal Irving MD Primary Care Provider [phone] Gabriele Tatum MD Unavailable [phone] Allergies Active Allergy Reactions Criticality Noted Date [...] adjust medications as needed. Cerebrovascular accident (CVA) Surgical History Surgery Date Site/Laterality Comments CAROTID ENDARTERECTOMY Bilateral TUNNELED LINE PLACEMENT > 5 YEARS 05/14/2023 N/A Medical History Medical History Date Comments Arthritis Coronary artery disease Stroke (HCC) Hypertension Diabetes mellitus (HCC) Family History Medical History Relation Name Comments Atrial fibrillation Father Stroke Father Bladder Cancer Mother Cervical cancer Mother Vaginal cancer Mother Graves' disease Sister Relation Name Status Comments Father Mother Sister Social History Tobacco Use Types Packs/Day Years [...] week 05/18/2023 [facility] services? Never 05/18/2023 Do you belong to any clubs o r organizations such as pentecostalism groups, unions, fraternal or athletic groups, or [...] and heating? Not hard at all 05/18/2023 [facility] - Occupational Stress Questionnaire Answer Date Recorded [...] place to sleep or slept in a skilled nursing (including now)? 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 Gender Identity Not on file Sexual Orientation Not on file Obstetrics History Last Filed Vital Signs Vital Sign Reading Time Taken Comments Blood Pressure 152/78 11/09/2023 5:42 PM RETURNED ITEM CLERK Pulse 72 11/09/2023 5:42 PM RETURNED ITEM CLERK Temperature 37.1 C (98.7 F) 11/09/2023 3:44 PM RETURNED ITEM CLERK Respiratory Rate 18 11/09/2023 5:42 PM RETURNED ITEM CLERK Oxygen Saturation 100% 11/09/2023 5:42 PM RETURNED ITEM CLERK Inhaled Oxygen Concentration - - Weight 55 kg (121 lb 4.1 oz) 11/09/2023 10:34 AM RETURNED ITEM CLERK Height 149.9 cm (4' 11.02) 11/09/2023 10:34 AM RETURNED ITEM CLERK Body Mass Index 24.48 11/09/2023 10:34 AM RETURNED ITEM CLERK Plan of Treatment Health Maintenance Due Date Last Done Comments Albumin Creatinine Ratio, Urine 1957 Breast Cancer Screening-Mammogram 1957 Colon Cancer Screening-Colonoscopy 1955 Depression Screening 1957 Osteoporosis Screening-Bone Density Scan 1957 Dilated Eye Exam 1957 Foot Exam 1957 DTaP/Tdap/Td Vaccine (1 - Tdap) 1968 Lung Cancer Screening 2007 Zoster Vaccine (1 of 2) 2007 Well Visit 65+ 2022 Pneumococcal vaccine 65+ (3 of 3 - PCV20 or PCV21) 09/01/2022 09/01/2017, 08/30/2012 Lipid Panel 05/29/2023 05/29/2022 Hemoglobin A1C 11/14/2023 05/15/2023 Fall Risk Assessment 05/18/2024 05/18/2023 Covid-19 Vaccine (2023-12 5 season) 2024 11/05/2021, 03/24/2021, 03/02/2021 eGFR 11/09/2024 11/09/2023, 04/30, 05/15/2023, Additional history exists Influenza Vaccine (Season Ended) 2025 04/11/20 14 Hepatitis C Screening Completed 05/15/2023 Hepatitis B Screening Completed 07/15/2023 , 06/17/2023, 05/15/2023 Medical Devices Implanted Type Area Wood Piler Device Identifier Shelf Expiration Date Model / Serial / Lot [employer] Dur[employer] Vascpak Safesheath D-Pro 15.5fr 28cm Kit Catheter [id number] - [id number] Implanted:Qty: 1 on 05/14/2023 at [facility] [employer] 07/30/2025 [id number] / / [id number] Procedures Procedure Name Priority Date/Time Associated Diagnosis Comments EGFR STAT 11/09/2023 10:48 AM RETURNED ITEM CLERK HEMOGLOBIN A1C Add-On 05/15/2023 3:07 PM CDT HEPATITIS PANEL, ACUTE Routine 05/15/2023 8:30 AM CDT LIPID PANEL Routine 05/29/2022 5:38 AM CDT from Last 3 Months or Most Recently Relevant to Health Maintenance Results * eGFR (11/09/2023 10:48 AM RETURNED ITEM CLERK) eGFR 10 mL/min/1. 73 m2 [facility] [...] of Race in Diagnosing Kidney Disease, JASN 202). The CKD-EPI equation should not be used for patients with unstable renal function and has not been validated in children and those over 70. Current interpretive data was last reviewed 2021. Blood 11/09/2023 10:4 8 AM RETURNED ITEM CLERK 11/09/2023 11:17 AM RETURNED ITEM CLERK Marly JOE LAB BLOOD ORDERABLES Final Resu lt Performing Organization Address [facility] Co de Phone Number [facility] [phone] [place] [address] * (ABNORMAL) Hemoglobin A1c (05/15/2023 3:07 PM CDT) Hgb A1C 5.8(H) 4.0 - 5.6 % [facility] Estimated Average Glucose 120 mg/dL [facility] Comment: The ADA recommends reporting an estimated Average Glucose (eAG) with all Hemoglobin A1c results using the equation derived from a study of 507 normal and diabetic adults. Minority populations were underrepresented and children were not included. (Diabetes Care 31:7335-7463, 2008). The eAG is not equivalent to a fasting glucose. Blood 05/15/2023 3:07 PM CDT 05/15/2023 3:42 PM CDT Jazmine Cortes MD LAB BLOOD ORDERABLES Final Re sult Performing Organization Address City/[facility]/ZIP Co de Phone Number [facility] WIL[facility] [address] Department of [employer] [place], [place] [id number] * Hepatitis panel, acute (05/15/2023 8:30 AM CDT) Hep A IgM Nonreactive Nonreactive [facility] Comment: Interpretive Data: If Hep A IgM Ab is reported as Equivocal, a new sample should be drawn in two weeks for testing. Current interpretive data was last revised on 20. Hep B core IgM Nonreactive Nonreactive [facility] Comment: Interpretive Data If HepB Core IgM Ab is reported as Equivocal, a new sample should be drawn in two weeks for testing. Current interpretive data was last revised on 20. Hep C Ab Nonreactive Nonreactive [facility] Comment: Interpretive Data Nonreactive: Antibodies to HCV [...] last revised on 2020. HepBsAg Nonreactive Nonreactive [facility] Blood 05/15/2023 8:30 AM CDT 05/15/2023 8:35 AM CDT us Omar Singer MD LAB MICROBIOLOGY - GENERAL ORD ERABLES Final Result [facility] [address] [place] [address] * (ABNORMAL) Lipid panel (05/29/2022 5:38 AM CDT) Pathologist [facility] Cholesterol 176 30 - 199 mg/dL [facility] ([place]) Comment: Interpretive Data Ages < or [...] on 2018. HDL 37(L) >=40 mg/dL [facility] ([place]) Comment: Interpretive Data Ages < or [...] on 2018. Chol/HDL ratio 5 [facility] ([place]) Blood 05/29/2022 5:38 AM CDT 05/29/2022 5:47 AM CDT us Gabriele Tatum MD LAB BLOOD ORDERABLES Fi nal Result [facility] ([place]) 1 [facility] [place] [address] from Last 3 Months or Most Recently Relevant to Health Maintenance [place] [phone] [facility] [place] [address] [place]IC[place] [facility] [place] [address] MEDICARE [facility] [place] [address] Advance Directives For more information, please contact: [phone] * Full Code (Latest Code Status on File) Date Activated Date Inactivated Comments 05/14/2023 7:40 PM 05/18/2023 7:36 PM * Full Code Date Activated Date Inactivated Comments 05/27/2022 5:20 PM 05/29/2022 8:30 PM Care Teams Chopper Operator Relationship Specialty Start Date End Date Vishal Irving MD PCP - General 05/27/22 Gabriele Tatum MD [address] [facility] [address] [place] [id number] Consulting Physician Neurology 05/29/22
--- OUTSIDE RECORDS SUMMARY | 2025-05-03 07:18 | XMS_ITS | CONTINUITY OF CARE DOCUMENT ---
Author Name juicemary, nelson Address Unknown Organization [facility] Address [address] [address] [place] [address] Phone [phone] Care Team Providers Care Bus Matron Name Role Phone Teresa AUGUST, Fahad Unavailable Vishal Irving MD Unavailable Vishal Irving MD Unavailable PROBLEMS Condition Status Date Provider Notes Family History of CVA or Stroke: active ? Nathaniel Moore MD Family History of Hypertension: active ? Obey Moore MD Family History of CVA or Stroke: active ? Nathaniel Moore MD Family History of Hypertension: active ? Obey Moore MD Other symptoms involving car diovascular system active Fahad Moore MD HTN essential active Fahad Moore MD Carotid artery disease-s/p left cea 2011 active 08/22 Fahad Moore MD Chest pain-type to be determined active Nathaniel Moore MD CVA x 2. Last 2011 active Fahad Moore MD Hyperlipidemia active ? Fahad Moore MD Hypertension active ? Fahad Moore MD PVD active Fahad Moore MD Snoring active Fahad Moore MD ENCOUNTERS Date Type Provider Location Encounter Diag nosis - In-person encounter Office Visit Fahad Moore MD [place] [facility] - In-person encounter Office Visit Fahad Moore MD [place] [facility] - In-person encounter Office Visit Fahad Moore MD [place] [facility] - In-person encounter Office Visit Fahad Moore MD [place] [facility] Snoring - In-person encounter Office Visit Fahad Moore MD [place] [facility] - In-person encounter Office Visit Fahad Moore MD [place] [facility] - In-person encounter Office Visit Fahad Moore MD [place] [facility] - In-person encounter Office Visit Fahad Moore MD [place] [facility] - In-person encounter Office Visit Fahad Moore MD [place] [facility] Family History of CVA or Stroke:Family History of Hypertension:Family History of CVA or Stroke:Family History of Hypertension:Other symptoms involving cardiovascular systemHTN essentialCarotid artery disease-s/p left cea 2012Chest pain-type to be determinedCVA x 2. Last 2012HyperlipidemiaHypert ensionPVD VITAL SIGNS Date Observation Value Provider Body Mass Index (Ratio) 26.56 kg/m2 Obey Moore MD blood pressure, cuff size regular Cy sukumar Cornejo blood pressure, diastolic 70 mm[Hg] Cy sukumar Cornejo blood pressure, systolic 138 mm[Hg] Olinda Cornejo oxygen saturation, oximetry 98 % Sindy Cornejo respiratory rate E&M 16 /min Sindy Cornejo pulse rate 68 /min Sindy perez weight E&M 136 [lb_av] Sindy perez height E&M 60 [in_i] Sindy perez Body Mass Index (Ratio) 30.07 kg/m2 Obey Moore MD blood pressure, diastolic 88 mm[Hg] Da shayla Astrid blood pressure, systolic 160 mm[Hg] Dac ia Astrid oxygen saturation, oximetry 94 % Darling Astrid respiratory rate E&M 16 /min Darling V oss pulse rate 82 /min Darling Astrid weight E&M 154 [lb_av] Darling Astrid height E&M 60 [in_i] Darling Astrid Body Mass Index (Ratio) 29.68 kg/m2 Obey Moore MD blood pressure, cuff size regular Ke rri Ford blood pressure, diastolic 79 mm[Hg] Ke rrsaige Youngblood blood pressure, systolic 166 mm[Hg] Vincent Youngblood oxygen saturation, oximetry 97 % Angela Youngblood respiratory rate E&M 18 /min Angela munoz pulse rate 73 /min Angela Strickland er weight E&M 152 [lb_av] Angeal Strickland er height E&M 60 [in_i] Angela Strickland er Body Mass Index (Ratio) 28.98 kg/m2 Obey Moore MD blood pressure, diastolic 80 mm[Hg] Luis Alfredo Denise blood pressure, systolic 182 mm[Hg] Cathryn Denise oxygen saturation, oximetry 97 % Patito Denise respiratory rate E&M 18 /min Lesly Denise pulse rate 80 /min Patito yoder weight E&M 148.4 [lb_av] Patito cameron height E&M 60 [in_i] Patito yoder blood pressure, diastolic 80 mm[Hg] Luis Alfredo Denise blood pressure, systolic 180 mm[Hg] Cathryn Denise pulse rate 71 /min Patito yoder oxygen saturation, oximetry 97 % Patito Denise respiratory rate E&M 16 /min Lesly Denise Body Mass Index (Ratio) 29.29 kg/m2 Nicci Denise weight E&M 150 [lb_av] Patito yoder Body Mass Index (Ratio) 31.24 kg/m2 Sasha leanne Archuleta pulse rate 80 /min Janene Archuleta oxygen saturation, oximetry 97 % Janene Archuleta respiratory rate E&M 15 /min Janene Geremias weight E&M 160 [lb_av] Janene Archuleta blood pressure, diastolic 99 mm[Hg] Me bryan Archuleta blood pressure, systolic 218 mm[Hg] Maliha Archuleta blood pressure, diastolic 85 mm[Hg] De bryan Samaniego blood pressure, systolic 188 mm[Hg] Maliha mackenzie Samaniego Body Mass Index (Ratio) 30.07 kg/m2 Sasha perdomo Samaniego pulse rate 78 /min Janene Samaniego oxygen saturation, oximetry 97 % Janene Samaniego respiratory rate E&M 14 /min Janene Samaniego weight E&M 154 [lb_av] Janene Samaniego Body Mass Index (Ratio) 29.88 kg/m2 A[facility] blood pressure, diastolic 88 mm[Hg] An eatris Eber blood pressure, systolic 194 mm[Hg] Ane atris Brown pulse rate 88 /min Aneatris Brown oxygen saturation, oximetry 97 % Aneatris Brown respiratory rate E&M 16 /min Aneatri s Eber weight E&M 153 [lb_av] Aneatris Brown blood pressure, diastolic 89 mm[Hg] Ta tootie Ortiz blood pressure, systolic 199 mm[Hg] Alvarado ica Angel Body Mass Index (Ratio) 30.27 kg/m2 Dedra gayathri Ortiz pulse rate 75 /min Celena Ortiz oxygen saturation, oximetry 97 % Celena Ortiz respiratory rate E&M 16 /min Celena Ortiz weight E&M 155 [lb_av] Celena Ortiz height E&M 60 [in_i] Celena Ortiz ALLERGIES Allergy Name Onset Date Reaction Criticality Status IODINE Low Criticality active RESULTS Date Observation Value Provider Reference Range Interpretation Location prothrombin time (patient) 10.5 s [facility] 9.1-12.0 international normalized ratio (INR) 1.0 [facility] 0.8-1.2 lipoprotein, beta, serum, point, quantitative, calculated 131 mg/dL [facility] 0-99 High very low density lipoproteins 22 mg/dL [facility] 5-40 7 HDL cholesterol, serum 37 mg/dL [facility] >39 Low triglyceride, serum, random 109 mg/dL [facility] 0-149 7 cholesterol, serum 190 mg/dL [facility] [phone]/02/0 7 calcium, serum 9.4 mg/dL [facility] 8.7-10.3 7 carbon dioxide, venous blood 23 mmol/L [facility] 20-29 7 chloride, serum 96 mmol/L [facility] 96-106 7 potassium, serum 3.6 mmol/L [facility] 3.5-5.2 7 sodium, serum 139 mmol/L [facility] 518-247 4902/02/0 7 urea nitrogen/creatinin e ratio, serum 19 [facility] 12-28 7 eGFR if 57 mL/min/{1. 73_m2} [facility] >59 Low 7 eGFR if not 50 mL/min/{1. 73_m2} [facility] >59 Low 7 creatinine, serum 1.18 mg/dL [facility] 0.57-1.00 High 7 urea nitrogen, blood 23 mg/dL [facility] 8-27 7 blood glucose, random 143 mg/dL [facility] 65-99 High 7 basophil count, absolute 0.1 x10E3/uL [facility] 0.0-0.2 7 Eosinophil Absolute Count 0.6 X10E3/UL [facility] 0.0-0.4 High 7 monocyte count, blood, automated 0.7 X10E3/UL [facility] 0.1-0.9 7 lymphocyte count, blood, automated 3.4 X10E3/UL [facility] 0.7-3.1 High 7 Absolute Neutrophils 8.0 X10E3/UL [facility] 1.4-7.0 High 7 basophils as percent of blood leukocytes 1 % [facility] Not Estab. 7 eosinophils as percent of blood leukocytes 5 % [facility] Not Estab. 7 monocytes as percent of blood leukocytes 6 % [facility] Not Estab. 7 lymphocytes as percent of blood leukocytes 27 % [facility] Not Estab. 7 neutrophils as percent of blood leukocytes 61 % [facility] Not Estab. 7 platelet count 428 X10E3/UL [facility] 753-092 2202/02/0 7 red blood cell distribution width 12.5 % [facility] 11.7-15.4 7 mean corpuscular hemoglobin concentration, RBC 32.9 G/DL [facility] 31.5-35.7 7 mean corpuscular hemoglobin, RBC 29.8 pg [facility] 26.6-33.0 7 mean corpuscular volume, RBC 91 fL [facility] 79-97 7 hematocrit, blood 42.9 % [facility] 34.0-46.6 7 hemoglobin, blood 14.1 g/dL [facility] 11.1-15.9 7 erythrocyte (RBC) count 4.73 X10E6/UL [facility] 3.77-5.28 7 leukocyte count, blood 12.8 X10E3/UL [facility] 3.4-10.8 High 3 prothrombin time (patient) 10.0 s [facility] 9.1-12.0 3 international normalized ratio (INR) 0.9 [facility] 0.8-1.2 3 calcium, serum 9.2 mg/dL [facility] 8.7-10.2 3 carbon dioxide, venous blood 23 mmol/L [facility] 18-29 3 chloride, serum 100 mmol/L [facility] 97-108 3 potassium, serum 4.1 mmol/L [facility] 3.5-5.2 3 sodium, serum 141 mmol/L [facility] 025-936 6556/11/1 3 urea nitrogen/creatinin e ratio, serum 28 [facility] 9-23 High 3 eGFR if not 87 mL/min/{1. 73_m2} [facility] >59 3 creatinine, serum 0.76 mg/dL [facility] 0.57-1.00 3 urea nitrogen, blood 21 mg/dL [facility] 6-24 3 blood glucose, random 90 mg/dL [facility] 65-99 3 basophil count, absolute 0.1 x10E3/uL [facility] 0.0-0.2 3 Eosinophil Absolute Count 0.5 X10E3/UL [facility] 0.0-0.4 High 3 monocyte count, blood, automated 0.9 X10E3/UL [facility] 0.1-0.9 3 lymphocyte count, blood, automated 4.8 X10E3/UL [facility] 0.7-3.1 High 3 Absolute Neutrophils 8.6 X10E3/UL [facility] 1.4-7.0 High 3 basophils as percent of blood leukocytes 1 % [facility] 3 eosinophils as percent of blood leukocytes 3 % [facility] 3 monocytes as percent of blood leukocytes 6 % [facility] 3 lymphocytes as percent of blood leukocytes 32 % [facility] 3 neutrophils as percent of blood leukocytes 58 % [facility] 3 platelet count 418 X10E3/UL [facility] 150-379 High 3 red blood cell distribution width 13.4 % [facility] 12.3-15.4 3 mean corpuscular hemoglobin concentration, RBC 34.2 G/DL [facility] 31.5-35.7 3 mean corpuscular hemoglobin, RBC 30.1 pg [facility] 26.6-33.0 3 mean corpuscular volume, RBC 88 fL [facility] 79-97 3 hematocrit, blood 40.7 % [facility] 34.0-46.6 3 hemoglobin, blood 13.9 g/dL [facility] 11.1-15.9 3 erythrocyte (RBC) count 4.62 X10E6/UL [facility] 3.77-5.28 3 leukocyte count, blood 14.9 X10E3/UL [facility] 3.4-10.8 High HISTORY OF MEDICATION USE Medication Status Instructions Dates Provider Indications Com ments DIPHENHYDRAMINE HCL 25 MG ORAL TABLET active 2 tabs by mouth the morning of the procedure Emmanuel Armstrong FAMOTIDINE 20 MG ORAL TABLET active One tablet by mouth at bedtime the night before procedure and one tab morning of procedure Emmanuel Armstrong PREDNISONE 50 MG ORAL TABLET active One tab by mouth at 5pm and at 9pm the day before procedure and one tab morning of procedure Emmanuel Armstrong ZETIA 10 MG ORAL TABLET active take 1 tab daily Sindy Cornejo ROSUVASTATIN CALCIUM 10 MG ORAL TABLET completed 1 po qhs - Sindy Cornejo HYDROCODONE-ACETAM INOPHEN 5-325 MG ORAL TABLET completed 1 tab as needed for pain - Angela Youngblood XANAX 0.5 MG ORAL TABLET active 1/2 tab daily as needed Aneatris Brown MICARDIS HCT 80-25 MG ORAL TABLET active take one daily Darling Resendiz CARVEDILOL 25 MG ORAL TABLET active one tab twice daily Jesse Park RN AMLODIPINE BESYLATE 10 MG ORAL TABLET active 1 tab daily Fahad Moore MD CLOPIDOGREL BISULFATE 75 MG ORAL TABLET active 1 tab daily Fahad Moore MD ASPIRIN 81 MG ORAL TABLET active 1 tab daily Fahad Moore MD SOCIAL HISTORY Date Observation Value Provider social history E&M Marital Statu s: Fredrick medina: 0 O ccupation: Retired Smoking History: P atient currently smokes every day. P atient has been counseled to quit. Fahad Moore MD social history reviewed E&M revi ewed - no changes required Fahad Moore MD seatbelt usage 100 % Sindy verdin passive cigarette sm yari exposure yes Sindy Cornejo smoking/tobacco cess ation, patient education and counseling yes Sindy Cornejo smoking, date started 1978 Shno Cornejo smoking history, tot al pack/year 38 Sindy Cornejo smoking history, tot al pack/day 1/2 Sindy Cornejo cigarette use yes Sindy jameson smoking status Current every day smoker Fredrick Cornejo social history E&M Marital Statu s: Fredrick medina: 0 O ccupation: Retired Smoking History: P atient currently smokes every day. P atient has been counseled to quit. Fahad Moore MD social history reviewed E&M revi ewed - no changes required Fahad Moore MD seatbelt usage 100 % Darling Astrid alcohol use, type social Darling Astrid alcohol use yes Darling Astrid smoking/tobacco cess ation, patient education and counseling yes Darling Astrid passive cigarette sm yari exposure yes Darling Astrid smoking, date started 1978 Darling Astrid smoking history, tot al pack/year 38 Darling Astrid smoking history, tot al pack/day 1/2 Fahad Moore MD cigarette use yes Darling Astrid smoking status Current every day smoker D carlos alberto Resendiz social history E&M Marital Statu s: Fredrick medina: 0 O ccupation: Retired Smoking History: P son currently smokes every day. P son has been counseled to quit. Fahad Moore MD social history reviewed E&M revi ewed - no changes required Fahad Moore MD seatbelt usage 100 % Angela Mann ryan alcohol use, type social Angela Choi luannejasonелена alcohol use yes Angela Strickland lder smoking/tobacco cess ation, patient education and counseling yes Angela Youngblood passive cigarette sm yari exposure yes Angela Mendietaелена smoking, date started 1978 Angela Choikaroline smoking history, tot al pack/year 38 Angela Mendietaелена smoking history, tot al pack/day 5 Angela Mendietaелена cigarette use yes Angela Mendieta елена smoking status Current every day smoker K nury Barrerahawa smoking history, tot al pack/year 38 Jesse Park RN social history reviewed E&M revi ewed - no changes required Fahad Moore MD seatbelt usage 100 % Patito Valencia alcohol use, type social Patito Denise alcohol use yes Patito yoder smoking/tobacco cess ation, patient education and counseling yes Patito Denise passive cigarette sm yari exposure yes Patito Denise smoking, date started 1978 Miranda Denise smoking history, tot al pack/day 5 Patito Denise cigarette use yes Patito cameron smoking status Current every day smoker M Lissett Denise social history E&M Marital Statu s: Fredrick medina: 0 O ccupation: Retired Fahad Moore MD social history reviewed E&M revi ewed - no changes required Fahad Moore MD seatbelt usage 100 % Patito Valencia alcohol use, type social Patito Denise alcohol use yes Patito Gibson nson smoking/tobacco cess ation, patient education and counseling yes Patito Denise passive cigarette sm yari exposure yes Patito Denise smoking, date started 1979 Miranda Denise smoking history, tot al pack/day 5 Patito Denise cigarette use yes Patito betancourton smoking status Current every day smoker Naseem Denise social history reviewed E&M revi ewed - no changes required Fahad Moore MD seatbelt usage 100 % Janene Archuleta alcohol use, type social Janene Tamayo jennifer alcohol use yes Janene Archuleta passive cigarette sm yari exposure yes Janene Archuleta smoking/tobacco cess ation, patient education and counseling yes Janene Archuleta smoking, date started 1979 Saurabh Archuleta smoking history, tot al pack/day 5 Janene Archuleta cigarette use yes Janene Archuleta smoking status Current every day smoker Naseem Archuleta social history reviewed E&M revi ewed - no changes required Fahad Moore MD seatbelt usage 100 % Janene Jolene childress alcohol use, type social Janene Reuben Huang alcohol use yes Janene Samaniego passive cigarette sm yari exposure yes Janene Samaniego smoking/tobacco cess ation, patient education and counseling yes Janene Samaniego smoking, date started 1979 Meliss naa Samaniego smoking history, tot al pack/day 5 Janene Samaniego cigarette use yes Janene Samaniego smoking status Current every day smoker M mane Samaniego social history reviewed E&M revi ewed - no changes required Fahad Moore MD smoking/tobacco cess ation, patient education and counseling yes Fahad Moore MD seatbelt usage 100 % Fahad Moore MD alcohol use, type social Fahad barragan MD alcohol use yes Fahad Summers passive cigarette sm yari exposure yes Fahad Mooer MD social history reviewed E&M revi ewed - no changes required Fahad Moore MD social history E&M Marital Statu s: C hildren: 0 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: Office Fahad Moore MD smoking, date started 1978 Celena Angel smoking history, tot al pack/day 5 Celena Ortiz cigarette use yes Celena Ortiz smoking status Current every day smoker T vandana Angel FAMILY HISTORY Family Member Condition Full Brother Family History of Co ronary Artery Disease: Full Brother Family History of Hy pertension: Full Brother Family History of Di abetes: Father Family History of Di abetes: Father Family History of CV A or Stroke: Mother Family History of Co ngestive Heart Failure: Mother Family History of Hy pertension: Mother Family History of CV A or Stroke: INSURANCE PROVIDERS Payer name Policy type / Coverage type Count includes the [facility] ID [facility] [id number] Other [id number] ADVANCE DIRECTIVES Name Date DISCUSSED - NO DECISION MADE TREATMENT PLAN Date Name Performer Cardiology follow up Fahad hager MD Cardiology follow up Fahad hager MD Cardiology follow up Fahad hager MD Cardiology follow up Fahad hgaer MD Cardiology follow up Fahad hager MD Cardiology follow up Fahad hager MD Cardiology follow up Fahad hager MD Cardiology follow up :Start crestor. R echeck lipids 2 months Fahad Moore MD Cardiology follow up Fahad hager MD Cardiology follow up Fahad Susanna hager MD Cardiology follow up Fahad Susanna hager MD Cardiology Follow up Fahad Susanna hager MD Cardiology Follow up Fahad Susanna hager MD Cardiology Follow up Fahad Susanna hager MD Cardiology Follow up Fahad Susanna hager MD Cardiology Follow up Fahad Susanna hager MD Cardiology Fahad Moore MD Cardiology Fahad Moore MD Cardiology Fahad Moore MD Cardiology Fahad Moore MD Cardiology Fahad Moore MD Cardiology Fahad Moore MD Cardiology Fahad Moore MD Cardiology Fahad Moore MD Cardiology:BP normal at home. Up s white coat htn. Fahad Moore MD Cardiology Fahad Moore MD Cardiology Fahad Moore MD Cardiology Fahad Moore MD Cardiology Fahad Moore MD follow up Fahad Moore MD follow up Fahad Moore MD follow up Fahad Moore MD follow up Fahad Moore MD follow up Fahad Moore MD follow up:s/p bilat SFA athrectomies with stent. N ormal pulses 05/2015 Fahad Moore MD follow up: H er updated medication list for this problem includes: Micardis 40 Mg Tabs (Telmisartan) ..... One tab daily Carvedilol 12.5 Mg Tabs (Carvedilol) ..... 1 tab bid Amlodipine Besylate 10 Mg Tabs (Amlodipine besylate) ..... 1 tab daily Aspirin 81 Mg Tabs (Aspirin) ..... 1 tab daily Fahad Moore MD follow up: H er updated medication list for this problem includes: Clopidogrel Bisulfate 75 Mg Tabs (Clopidogrel bisulfate) ..... 1 tab daily Aspirin 81 Mg Tabs (Aspirin) ..... 1 tab daily Fahad Moore MD follow up: H er updated medication list for this problem includes: Clopidogrel Bisulfate 75 Mg Tabs (Clopidogrel bisulfate) ..... 1 tab daily Aspirin 81 Mg Tabs (Aspirin) ..... 1 tab daily Fahad Moore MD follow up Fahad Moore MD follow up: H er updated medication list for this problem includes: Micardis 40 Mg Tabs (Telmisartan) ..... One tab daily Carvedilol 12.5 Mg Tabs (Carvedilol) ..... 1 tab bid Amlodipine Besylate 10 Mg Tabs (Amlodipine besylate) ..... 1 tab daily Aspirin 81 Mg Tabs (Aspirin) ..... 1 tab daily Fahad Moore MD follow up Fahad Moore MD follow up: H er updated medication list for this problem includes: Micardis 40 Mg Tabs (Telmisartan) ..... One tab daily Carvedilol 12.5 Mg Tabs (Carvedilol) ..... 1 tab bid Amlodipine Besylate 10 Mg Tabs (Amlodipine besylate) ..... 1 tab daily Aspirin 81 Mg Tabs (Aspirin) ..... 1 tab daily Fahad Moore MD follow up: H er updated medication list for this problem includes: Clopidogrel Bisulfate 75 Mg Tabs (Clopidogrel bisulfate) ..... 1 tab daily Aspirin 81 Mg Tabs (Aspirin) ..... 1 tab daily Orders: C arotid Duplex Bilateral (CPT-90963) Fahad Moore MD follow up: H er updated medication list for this problem includes: Clopidogrel Bisulfate 75 Mg Tabs (Clopidogrel bisulfate) ..... 1 tab daily Aspirin 81 Mg Tabs (Aspirin) ..... 1 tab daily Orders: C arotid Duplex Bilateral (CPT-46838) Fahad Moore MD follow up: H er updated medication list for this problem includes: Micardis 40 Mg Tabs (Telmisartan) ..... One tab daily Carvedilol 12.5 Mg Tabs (Carvedilol) ..... 1 tab bid Amlodipine Besylate 10 Mg Tabs (Amlodipine besylate) ..... 1 tab daily Aspirin 81 Mg Tabs (Aspirin) ..... 1 tab daily Fahad Moore MD follow up: O rders: A rterial Duplex Bi-Lower EX (CPT-98622) Fahad Moore MD hfu: H er updated medication list for this problem includes: Micardis 40 Mg Tabs (Telmisartan) ..... One tab daily Carvedilol 12.5 Mg Tabs (Carvedilol) ..... 1 tab bid Amlodipine Besylate 10 Mg Tabs (Amlodipine besylate) ..... 1 tab daily Aspirin 81 Mg Tabs (Aspirin) ..... 1 tab daily Fahad Moore MD hfu: H er updated medication list for this problem includes: Clopidogrel Bisulfate 75 Mg Tabs (Clopidogrel bisulfate) ..... 1 tab daily Aspirin 81 Mg Tabs (Aspirin) ..... 1 tab daily Fahad Moore MD hfu: H er updated medication list for this problem includes: Clopidogrel Bisulfate 75 Mg Tabs (Clopidogrel bisulfate) ..... 1 tab daily Aspirin 81 Mg Tabs (Aspirin) ..... 1 tab daily Fahad Moore MD hfu: H er updated medication list for this problem includes: Micardis 40 Mg Tabs (Telmisartan) ..... One tab daily Carvedilol 12.5 Mg Tabs (Carvedilol) ..... 1 tab bid Amlodipine Besylate 10 Mg Tabs (Amlodipine besylate) ..... 1 tab daily Aspirin 81 Mg Tabs (Aspirin) ..... 1 tab daily Orders: R enal Artery Duplex (CPT-60597) Fahad Moore MD Date Name PROTHROMBIN TIME WIT H INR LIPID PANEL CBC (INCLUDES DIFF/P LT) BASIC METABOLIC PANE L W/EGFR Complete Echo Carotid Duplex Bilat eral Arterial Duplex Bi-L ower EX LIPID PANEL Carotid Duplex Bilat eral Sleep Study Home Complete Echo Carotid Duplex Bilat eral Carotid Duplex Bilat eral Arterial Duplex Bi-L ower EX PROTHROMBIN TIME WIT H INR CBC (INCLUDES DIFF/P LT) BASIC METABOLIC PANE L W/EGFR Carotid Duplex Bilat eral Arterial Duplex Bi-L ower EX Aortic Abdominal Ult rasound Renal Artery Duplex HISTORY OF PROCEDURES Procedure Date Procedure Name Provider Procedure Notes S tatus EKG Fahad Moore MD complete d EKG Fahad Moore MD complete d EKG Fahad Moore MD complete d SNOMED-CT: 389677960 [id number] Current Medications Documented Fahad Moore MD completed EKG Fahad Moore MD complete d SNOMED-CT: 619998848 731081 Current Medications Documented Fahad Moore MD completed SNOMED-CT: 115422924 Smoking Cessation Counseling Fahad Moore MD completed EKG Fahad Moore MD complete d SNOMED-CT: 597474415 232185 Current Medications Documented Fahad Moore MD completed EKG Fahad Moore MD complete d
--- OUTSIDE RECORDS SUMMARY | 2025-05-03 07:18 | XMS_ITS ---
Author Organization [facility] Address [address] [place] [address] Care Team Providers Care Stock Raiser Name Role Phone Enmanuel Omar Unavailable [phone] Encounters Encounter Location Date Provider Diagnosis [place] [facility] [address] [place] [address] 11/18/2024 Omar Singer Plan Of Treatment No Information Progress Notes * SAIDA HAMILTONDOB:1955 ( 70 yo F)Acc No.[id number]:11/18/2024 Patient: SAIDA FIELD Provider: Ladonna MARIE MD, F.Carrie.C.P, F.A.S.N. :1955 A ge:69 Y S ex:Female Date:11/18/2024 [place] [address] Subjective: * Chief Complaints: Objective: Assessment: Plan: * Billing Information: * Visit Code: * Procedure Codes: * Electronic signature of Silvia Singer MD on 05/03/2025 at 07:18 AM CDT Sign off status: Pending * Provider: Ladonna MARIE MD, F.Carrie.C.P, F.A.S.N. Date: 01/19/2024 Generated for Printing/Faxing/eTransmitting on: 05/03/2025 07:18 AM CDT
--- OUTSIDE RECORDS SUMMARY | 2025-05-03 07:18 | XMS_ITS | Clinical Summary ---
[facility] Bergeronluanne Address [address] [place] [address] Care Team Providers Care Hide Selector Name Role Phone Vishal Irving MD Primary Care Provider [phone] Allergies Active Allergy Reactions Criticality Noted Date Comments Iodine Hives High 08/22/2014 Medications amLODIPine (NORVASC) 10 mg tablet Take 10 mg by mouth daily. 3 Active calcitRIOL (ROCALTROL) 0.25 mcg capsule Take 0.25 mcg by mouth daily. 3 Active clopidogreL (PLAVIX) 75 mg Tablet Take 75 mg by mouth daily. 3 Active doxazosin (CARDURA) 4 mg tablet 3 Active ezetimibe (ZETIA) 10 mg tablet 3 Active furosemide (LASIX) 40 mg tablet Take 40 mg by mouth 2 times daily. 3 Active metoprolol tartrate (LOPRESSOR) 50 mg tablet TAKE 1 TABLET BY MOUTH IN THE MORNING AND 2 TABLETS IN THE EVENING 3 Active telmisartan (MICARDIS) 80 mg Tablet 3 Active triamcinolone acetonide (KENALOG) 0.1 % Cream APPLY A THIN LAYER TOPICALLY TO THE AFFECTED AREA(S)TWICE DAILY 3 Active vit C/E/Zn/coppr/francine tein/zeaxan (PRESERVISION AREDS-2 ORAL) Take by mouth. A ctive aspirin (ECOTRIN EC) 81 mg Tablet, Delayed Release (E.C.) Take 81 mg by mouth daily. Active Active Problems No known active problems Family History Medical History Relation Name Comments Diabetes Brother Heart Disease Brother Heart Disease Father Cervical Cancer Mother Vaginal Cancer Mother Relation Name Status Comments Brother Father Mother Sister Alive Social History Tobacco Use Types Packs/Day Years Used Date Smoking Tobacco: Never Assessed Comments Unknown Sex and Gender Information Value Date Recorded Sex Assigned at Not on file Legal Sex Female 8:01 AM CDT Gender Identity Not on file Sexual Orientation Not on file Last Filed Vital Signs Vital Sign Reading Time Taken Comments Blood Pressure 185/47 05/01/2023 8:39 AM CDT Pulse 63 05/01/2023 8:36 AM CDT Temperature 36.8 C (98.2 F) 05/01/2023 8:36 AM CDT Respiratory Rate 10 05/01/2023 8:36 AM CDT Oxygen Saturation 100% 05/01/2023 8:36 AM CDT Inhaled Oxygen Concentration - - Weight 57.6 kg (127 lb) 05/01/2023 8:36 AM CDT Height 149.9 cm (4' 11) 04/14/2023 3:43 PM CDT Body Mass Index 25.65 04/14/2023 3:43 PM CDT Plan of Treatment Health Maintenance Due Date Last Done Comments DIABETES ANNUAL FOOT EXAM 1975 DIABETES ANNUAL RETINAL EXAM 1975 DIABETES HBA1C Q 6 MONTHS 1975 DIABETES MICROALBUMIN ANNUAL SCREEN 1975 LDL CHOLESTEROL ANNUAL 1975 DTAP/TDAP/TD VACCINES (1 - Tdap) 1976 PNEUMOCOCCAL VACCINE 50+ YEARS (1 of 2 - PCV) 01/17/19 76 BREAST CANCER SCREENING 1997 COLORECTAL SCREENING 2002 Colorectal Cancer Screening 2002 FIT-DNA Q 3 years 2002 FIT/FOBT Q 1 year 2002 Flex Sig/CT Colonography Q 5 years 2002 ZOSTER VACCINE (1 of 2) 2007 RSV VACCINE (60+ or ) (1 - Risk 60-74 years 1-dose series) 2017 OSTEOPOROSIS SCREENING 2022 INFLUENZA VACCINE (#1) 2024 Insurance MEDICARE PART A AND B [facility] [place] [address] Care Teams Hide Selector Relationship Specialty Start Date End Date Vishal Irving MD [address] [facility] [address] [place] [address] PCP - General Internal Medicine 04/14/23
--- OUTSIDE RECORDS SUMMARY | 2025-05-03 07:19 | XMS_ITS | Patient Health Record ---
Author Organization [facility] Address [address] [place] [address] Care Team Providers Care Lawn Sprinkler Installer Name Role Phone Omar Singer Unavailable [phone] Reason For Referral No Information Medications Medication SIG (Take, Route, Frequency, Duration) Notes Start Date End Date Status Sodium Bicarbonate 650 MG TAKE 1 TABLET BY MOUTH TWICE DAILY for 30 Active Ferrous Sulfate 325 (65 Fe) MG 1 tablet Orally twice a day for 90 day(s) 03/13/2023 Active Lasix 40 MG 1 tablet Orally twic e a day for 90 day(s) 03/13/2023 Active Problems Problem Type SNOMED Code ICD Code Onset Dates Problem Status W/U Status Risk Notes Problem Secondary hyperparathyroidism (00095063) Secondary hyperparathyroi dism, not elsewhere classified (E21.1) Active confirmed Problem Essential hypertensi on (83998620) Essential (primary) hypertension (I10) Active confirmed Problem Heart failure (03263105) Heart failure, unspecified (I50.9) Active confirmed Problem Chronic kidney disea se stage 4 (620871919) Chronic kidney disease, stage 4 (severe) (N18.4) Active confirmed Problem Urinary tract infectious disease (disorder) (07491219) Urinary tract infection, site not specified (N39.0) Active confirmed Problem Retention of urine (422207206) Retention of urine, unspecified (R33.9) Active confirmed Problem Proteinuria (42593434) Proteinur ia, unspecified (R80.9) Active confirmed Problem Microscopic hematuri a (499723098) Other microscopic hematuria (R31.29) Active confirmed Problem Coronary artery disease (33420870) CAD (coronary artery disease) (I25.10) Active confirmed Encounters Encounter Location Date Provider Diagnosis [facility] [address] [facility] [address] [place] [address] 05/13/2024 Omar Singer Chronic kidney disease, stage 4 (severe) N18.4 ; Essential (primary) hypertension I10 ; Proteinuria, unspecified R80.9 ; Other microscopic hematuria R31.29 ; Urinary tract infection, site not specified N39.0 ; Secondary hyperparathyroidism, not elsewhere classified E21.1 and Retention of urine, unspecified R33.9 [facility] [address] [place] [address] 06/24/2024 Omar Singer Chronic kidney disease, stage 4 (severe) N18.4 ; Essential (primary) hypertension I10 ; Proteinuria, unspecified R80.9 ; Other microscopic hematuria R31.29 ; Urinary tract infection, site not specified N39.0 ; Secondary hyperparathyroidism, not elsewhere classified E21.1 and Retention of urine, unspecified R33.9 [facility] [address] [place] [address] 11/18/2024 Omar [facility] [address] [place] [address] 04/07/2025 Omar Singer Essential (primary) hypertension I10 ; Retention of urine, unspecified R33.9 ; Proteinuria, unspecified R80.9 ; Secondary hyperparathyroidism, not elsewhere classified E21.1 ; Other microscopic hematuria R31.29 ; CAD (coronary artery disease) I25.10 and Heart failure, unspecified I50.9 Assessments Encounter Date Diagnosis (ICD Code) Assessment Notes Treatment Notes Treatment Clinical Notes Section Notes 05/13/2024 Chronic kidney disease, stage 4 (severe) (ICD-10 - N18.4) 06/24/2024 Chronic kidney disease, stage 4 (severe) (ICD-10 - N18.4) 04/07/2025 Essential (primary) hypertension (ICD-10 - I10) 04/07/2025 Retention of urine, unspecified (ICD-10 - R33.9) 04/07/2025 Proteinuria, unspecified (ICD-10 - R80.9) 05/13/2024 Essential (primary) hypertension (ICD-10 - I10) 06/24/2024 Essential (primary) hypertension (ICD-10 - I10) 05/13/2024 Proteinuria, unspecified (ICD-10 - R80.9) 06/24/2024 Proteinuria, unspecified (ICD-10 - R80.9) 04/07/2025 Secondary hyperparathyroidi sm, not elsewhere classified (ICD-10 - E21.1) 04/07/2025 Other microscopic hematuria (ICD-10 - R31.29) 06/24/2024 Other microscopic hematuria (ICD-10 - R31.29) 05/13/2024 Other microscopic hematuria (ICD-10 - R31.29) 05/13/2024 Urinary tract infection, site not specified (ICD-10 - N39.0) 06/24/2024 Urinary tract infection, site not specified (ICD-10 - N39.0) 04/07/2025 CAD (coronary artery disease) (ICD-10 - I25.10) 04/07/2025 Heart failure, unspecified (ICD-10 - I50.9) 05/13/2024 Secondary hyperparathyroidi sm, not elsewhere classified (ICD-10 - E21.1) 06/24/2024 Secondary hyperparathyroidi sm, not elsewhere classified (ICD-10 - E21.1) 05/13/2024 Retention of urine, unspecified (ICD-10 - R33.9) 06/24/2024 Retention of urine, unspecified (ICD-10 - R33.9) Plan Of Treatment No Information
--- OUTSIDE RECORDS SUMMARY | 2025-05-03 07:19 | XMS_ITS | Data Portability ---
Author Organization [place] - [facility] [place], Main Office Address [address] [place] [address] Care Team Providers Care Senior Art Director Name Role Phone AMANDA MEANS Primary Care Provider [phone] Assessment No assessment recorded. Plan of Treatment Reminders Order Date Submit Date Provider Last Modified By Organization Details Last Modified Time Details Appointments Any 15 2024 01:30P M Amanda Means MD Not available Not available Not available Lab None recorded. Referral EGD referral 2022 023 [email or web address] Paramjit mckeon MD, [address], [address], [place], [address], 12/02/2023 10:32:26 Procedures None recorded. Surgeries None recorded. Imaging MAMMO, screening , digital, bilateral 2023 024 [email or web address] [facility], [address], [place], [address], 08/11/2024 09:59:48 bone density 2023 024 [email or web address] [facility], [address], [place], [address], 08/25/2024 08:43:42 US, duplex, carotid artery 2023 024 [facility], [address], [place], [address], 08/11/2024 09:59:49 LDCT, chest, for lung cancer screening 2023 024 [email or web address] [facility], [address], [place], [address], 08/11/2024 09:59:48 US, echocardi ogram 2023 024 [email or web address] [facility] [address], [place], [address], 08/11/2024 09:59:49 LDCT, chest, for lung cancer screening 2023 024 5 [facility], [address], [place], [address], 03/30/2024 09:11:49 MAMMO, screening , digital, bilateral 2023 024 [email or web address] 5 [facility], [address], [place], [address], 04/06/2024 09:03:09 US, duplex, carotid artery 2023 024 [email or web address] 5 [facility], [address], [place], [address], 04/06/2024 09:03:09 bone density [email or web address] [facility], [address], [place], [address], 04/06/2024 08:03:22 MAMMO, screening , digital, bilateral 2022 023 [email or web address] [facility], [address], [place], [address], 12/21/2023 14:03:17 bone density 2022 023 [email or web address] [facility], [address], [place], [address], 12/21/2023 14:03:17 Medication Orders alprazola m 0.5 mg tablet 2024 025 [facility], [address] [place], [address], 03/23/2025 14:42:04 alprazola m 0.5 mg tablet 2023 024 [facility], [address] [place], [address], 03/23/2024 12:24:43 triamcino lone acetonide 0.5 % topical cream 2022 023 [facility] [address] [place] [address] Pharm[facility] [address], [address] [place] [address], [address], 03/23/2024 12:05:37 Patient TargetsNo targets recorded. Patient Instructions Encounter Date Encounter Id Patient Instructions Last Modified By Organization Details Last Modified Time 07/28/2024 [id number] dementia rating scale-2* Not available 07/28/2024 17:36:20 depression screening* Not available 07/28/2024 17:36:20 alcohol misuse* Not available 07/28/2024 17:36:20 multi-dimensiona l health assessment questionnaire* Not available 07/28/2024 17:36:20 advance directiv es: care instructions Not available 07/28/2024 17:36:20 advance care planning: care instructions Not available 07/28/2024 17:36:20 [place] Advance Directives Not available 07/28/2024 17:36:20 Personalized [facility] lt Plan and Screening Recommendations Advance Directives - [...] common diseases from occurring) Smoking Risk: Smoker Continue to consider stopping smoking and call if we can assist you Alcohol Misuse Screening: Negative Weight: Appropriate Physical activity: Need more exercise/physical activity minimum of 10-20 minutes of activity that causes mild breathlessness/day Nutrition: Average Refer to attached handout Heart-Healthy Diet: After Your Visit Refer to attached handout DASH Diet: After Your Visit Recommend consultation with a ear nose throat physician sees ear nose throat physician at [employer] Fall Risk (screened today): Low Vaccines Pneumococcal: No further needed Influenza: Your next one in the fall of this year Chronic Disease Risks Stroke: Intermediate Risk Active diagnosis, Continue current treatment plan Heart Attack: Intermediate Risk Active diagnosis, Continue current treatment plan Clogging of the Arteries: Intermediate Risk Active diagnosis, Continue current treatment plan Diabetes: Intermediate Risk Active diagnosis, Continue current treatment plan Secondary Prevention/Interven tion (detects treatable diseases before they may cause symptoms, disability, or ) Breast Cancer Screening with mammogram: Your next mammogram: Ordered Recommended today Recommended today, but you have declined No screening necessary Your next mammogram: 2024 Cervical/Uterine/Ov bea Cancer Screening: Osteoporosis Screening: Your next DEXA in: Ordered Recomme nded today Recommended today, but you have declined No screening necessary Your next DEXA in: 2024 Date Screening Last Performed: 2020 Colon Cancer Screening: Colonoscopy No screening necessary Date Screening Last Performed: 2016_ Eye Disease Screening: Ordered Recommended today Recommended today, but you have declined No Eye exam necessary No 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 [email or web address] Not available 07/28/2024 15:27:58 Reason for Referral EGD Referral for Gastrointes tinal hemorrhage Referring Physician: Amanda Means, Internal Medicine, Encounter Date: 11/19/2023 Results Created Date Observation Date Name Description Value Unit Range Abnormal Flag Note LastModifiedBy Organization Detail LastModifiedTime 09/09/20 24 09/09/2024 US, brooke yi, da id arter y No observ ation record ed. [email or web address] Not Available 2023 15:00:33 11/02/2009/22/2024 LDCT, chest , for lung cance r [place] No observ ation record ed. [email or web address] Not Available 2023 18:11:45 11/02/2009/22/2024 US, echoc ardio gram, trans thora cic, compl ete, w/ color flow No observ ation record ed. BARCODE Not Available 2023 18:11:45 03/14/2003/13/2025 MAMMO , diagn ostic , digit al, unila teral No observ ation record ed. [email or web address] Not Available 2024 12:56:30 03/17/20 25 03/17/2025 MAMMO , diagn ostic , bilat eral No observ ation record ed. [email or web address] Not Available 2024 09:54:17 03/24/20 25 03/24/2025 DEXA No observ ation record ed. [email or web address] Not Available 2024 11:57:05 03/24/20 25 03/24/2025 biops y, breas t, w/ ultra sound timi nce (PROC ) No observ ation record ed. [facility] [address], [place], [address], 03/27/2025 11:13:00 Result Notes None recorded. Problems Name Problem SNOMED Code Status Onset Date Resolution Date Notes Provider Name and Address Organization Details Recorded Time End-stag e renal disease 88817055 Active 2022 Not Available [facility] 4 21:00:44 Anemia 077318057 Active 2022 Not Available [facility] 21:00:43 Insomnia 207078366 Active 2022 Not Available [facility] 4 21:00:43 Gastroin testinal hemorrha ge 56351662 Active 2022 Not Available [facility] 21:00:44 Heart murmur 72334140 Active 2023 Amanda Means MD [address], [address], [place], [address] , [place] [facility] 4 14:44:31 Mass of right breast 25947313606 844333 Active 2023 Melany Merino MA null, [place] [facility] 4 15:14:56 Breast lump 25845521 Completed 202403/10/2025 Lorie Hawk null, [place] [facility] 5 14:43:31 Mammogra phy abnormal 301704427 Active 2024 Melany Merino MA null, [place] [facility] 5 09:55:23 Postmeno pausal osteopor osis 854360721 Active 2024 Melany Merino MA null, [place] [facility] 5 11:58:14 Body mass index 30+ - obesity 539339281 Completed Not Available [facility] 3 04:51:08 Cerebrov ascular accident 224227787 Active 2021 Not Available [facility] 4 21:00:43 Metaboli c syndrome X 435830259 Completed Not Available [facility] 3 04:51:08 Transien t cerebral ischemia 061636324 Active 2021 Not Available [facility] 4 21:00:43 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 274146901 Active 2016 Not Available [facility] 4 21:00:43 Adult health examinat ion Active 2020 Not Available [facility] 4 21:00:43 Osteopen ia 640756696 Active 2016 Not Available [facility] 4 21:00:44 Vitamin D deficien cy 82431704 Active 2016 Not Available [facility] 4 21:00:44 Sinusiti s 75077495 Active Not Available [facility] 4 21:00:44 Hyperten sive disorder 56967482 Completed Not Available [facility] 3 04:51:09 Peripher al vascular disease 833352178 Active s/p stent Not Available [facility] 4 21:00:44 Eczema 64973025 Active Not Available [facility] 4 21:00:44 Anxiety 87115619 Active Not Available [facility] 4 21:00:44 Hyperlip idemia 81986872 Active Not Available [facility] 4 21:00:44 Nicotine dependen ce 79874673 Active Not Available [facility] 4 21:00:44 [facility] hyperten [place] 92737483 Active 2021 Not Available [facility] 4 21:00:44 Carotid artery stenosis 61877859 Active 2021 Not Available [facility] 4 21:00:44 Carotid artery stenosis 77517740 Completed 201905/14/2022 Not Available [facility] 3 04:51:10 Carotid artery stenosis 35595332 Active left carotid surgery, right 100% Not Available [facility] 4 21:00:44 Diabetes mellitus 51510613 Active 2017 Not Available [facility] 4 21:00:44 Hypergly cemia 72153159 Completed Not Available [facility] 3 04:51:10 History of colonosc opy 88455269256 9 Active 2021 6/17, normal, next in 10 yrs Not Available [facility] 4 21:00:44 Kidney disease 08145710 Active 2020 Not Available [facility] 4 21:00:44 Problem Notes None recorded. Procedures Surgical History Date Name Laterality Status Provider Name and Address Organization Details Recorded Time 07/28/20 24 Medicare Wellness CPT Code, subsequent completed JENNIE Mendoza [place] [employer] [facility] 07/28/2024 14:51:08 07/28/20 24 Advanced Care Planning completed JENNIE Mendoza [place] [employer] [facility] 07/28/2024 15:21:59 05/28/20 23 Transitional_Ca re_Management completed JENNIE Weiss [place] [employer] [facility] 05/19/2023 14:27:22 02/04/20 23 Advanced Care Planning completed Marly Ro RN [facility] 02/03/2023 10:17:16 02/04/20 23 Medicare Wellness CPT Code, Initial completed JENNIE Becerra [facility] 02/03/2023 10:10:33 07/10/20 21 Date of Last Mammogram completed JENNIE Becerra [facility] 02/03/2023 10:14:29 07/10/20 21 Most Recent Bone Density completed Marly Ro RN [facility] 02/03/2023 10:14:42 07/06/20 17 Date of Last Colonoscopy completed Marly Ro RN [facility] 02/03/2023 10:14:55 Imaging Results None recorded. Procedure Notes None recorded. Medical Equipment None Reported. Allergies Allergen ID Allergen Name Allergen Category Reaction Reaction Severity Criticality Documentation Date Start Date Code Code System Note Provider Name and Address Organization Details Recorded Time 8349 Product containin g 3-hydroxy -3-methyl glutaryl- coenzyme A reductase inhibitor (product) medicatio n Not available Not available Not available 01/28/2023 95923 009 SNOMED muscl eache s Not Available [facility] 3 05:04:48 8351 sertralin e medicatio n Not available Not available Not available 01/28/2023 98003 RxNorm lucid dream s Not Available [facility] 3 05:04:48 8352 Iodinated contrast media (substanc e) medicatio n Not available Not available Not available 01/28/2023 13868 2004 SNOMED Not Available [facility] 3 05:04:48 8355 hydralazi ne medicatio n dyspnea Not available Not available 01/28/2023 5470 RxNorm Not Available [facility] 3 05:04:49 Medications Name Sig Start [...] Not Available Not Available No t Available ofloxacin 0.3 % eye drops INSTILL 1 DROP THREE TIMES DAILY STARTING 2 DAYS BEFORE SURGERY, CONTINUIN G FOR 1 WEEK AFTER active Not Available Not Available No t Available alendronate 70 mg tablet TAKE 1 TABLET BY MOUTH ONCE A WEEK active Not Available Not Available No t Available clobetasol 0.05 % topical cream active Not Available Not Available Not Available potassium chloride ER 10 mEq tablet,exte nded release TAKE 1 TABLET BY MOUTH ONCE DAILY active Not Available Not Available No t Available clopidogrel 75 mg tablet TAKE 1 [...] completed Not Available Not Available Not Available ketorolac 0.5 % eye drops INSTILL 1 DROP THREE TIMES DAILY STARTING 2 DAYS BEFORE SURGERY, CONTINUE FOR 2 WEEKS AFTER active Not Available Not Available No t Available alprazolam 0.5 mg tablet TAKE 1 TABLET BY MOUTH ONCE DAILY NEEDED active Not Available Not Available No t Available prednisolon e acetate 1 % eye drops,suspe nsion INSTILL 1 DROP THREE TIMES DAILY STARTING AFTER SURGERY, CONTINUE FOR 3 WEEKS active Not Available Not Available No t Available triamcinolo ne acetonide 0.025 % topical cream active Not Available Not Available Not Available meclizine 25 mg tablet Take 1 tablet 3 times a day by oral route as needed. 12/06 completed Not Available Not Available Not Available amlodipine 10 mg tablet TAKE 1 TABLET BY MOUTH ONCE DAILY active Not Available Not Available No t Available telmisartan 40 mg tablet Take 1 tablet [...] Available Not Available telmisartan 80 mg tablet TAKE 1 TABLET BY MOUTH ONCE DAILY active Not Available Not Available No t Available metoprolol tartrate 50 mg tablet TAKE 1 TABLET BY MOUTH IN THE MORNING AND 2 TABS IN THE EVENING active Not Available Not Available No t Available betamethaso ne dipropionat e 0.05 % topical cream 05/[address]GO ARMSTRONG Not Available Not Available Not Available sertraline 25 mg tablet Take 1 tablet every day by oral route at bedtime. active Not Available Not Available No t Available omeprazole 20 mg capsule,del ayed release 03/23 completed Not Available Not Available Not Available doxazosin 4 mg tablet TAKE 1 TABLET BY MOUTH ONCE DAILY active Not Available Not Available No t Available hydralazine 50 mg tablet Take 1 tablet [...] propionate 50 mcg/actuati on nasal spray,suspe nsion [place] 2 sprays every day by intranasa l route for 10 days. 12/18 completed Not Available Not Available Not Available calcitriol 0.25 mcg capsule active Not Available Not Available Not Available amoxicillin 875 mg-potassiu m clavulanate 125 mg tablet Take 1 tablet every 12 hours by oral route for 10 days. 12/18 completed Not Available Not Available Not Available amoxicillin 500 mg-potassiu m clavulanate 125 mg tablet TAKE 1 TABLET BY MOUTH TWICE DAILY FOR 10 DAYS 03/23 completed Not Available Not Available Not [...] Updated DateTime 4 153.67 cm 25.4 kg/m2 39701.1 9 g 96.8 [degF] 71 /min 99 % 99 % 140 mm[Hg] 86 mm[Hg] Hyun Armstrong CMA [facility] 4 12:01:54 Date Recorded Body height Body mass index (BMI) Body weight Body temperature Heart rate Oxygen saturation Oxygen saturation in Arterial blood by Pulse oximetry Systolic blood pressure Diastolic blood pressure Provider Name and Address Organization Details Last Updated DateTime 5 153.67 cm 26.3 kg/m2 96884.1 5 g 97.8 [degF] 78 /min 97 % 97 % 148 mm[Hg] 86 mm[Hg] Dorothy joe [facility] 5 14:26:39 Date Recorded Body height Body mass index (BMI) Body weight Body temperature Heart rate Oxygen saturation Oxygen saturation in Arterial blood by Pulse oximetry Systolic blood pressure Diastolic blood pressure Provider Name and Address Organization Details Last Updated DateTime 4 153.67 cm 25.4 kg/m2 23459.1 9 g 98.2 [degF] 70 /min 97 % 97 % 130 mm[Hg] 74 mm[Hg] Marcela Yost [facility] 4 14:19:58 Date Recorded Body weight Body mass index (BMI) Body height Heart rate Oxygen saturation Oxygen saturation in Arterial blood by Pulse oximetry Systolic blood pressure Diastolic blood pressure Provider Name and Address Organization Details Last Updated DateTime 4 07017.5 6 g 26.1 kg/m2 153.67 cm 77 /min 96 % 96 % 180 mm[Hg] 70 mm[Hg] FORTINO Grove [facility] 4 14:41:12 Date Recorded Body height Body mass index (BMI) Body weight Body temperature Heart rate Oxygen saturation Oxygen saturation in Arterial blood by Pulse oximetry Systolic blood pressure Diastolic blood pressure Provider Name and Address Organization Details Last Updated DateTime 3 153.67 cm 25 kg/m2 68974.0 1 g 97.7 [degF] 70 /min 99 % 99 % 122 mm[Hg] 60 mm[Hg] Luz hager A [employer] 3 11:53:40 Social History Question Answer Notes LastModified by Organization Details LastModified Time Tobacco Smoking Status Current Some Day Smoker Whitley Garvin RN [facility], [facility] 07/28/2024 14:55:39 Do You Have An Advance Directive? No Papers Provided 07/28/2024 [email or web address] Information not available 07/28/2024 How Many Years Have You Consumed Alcohol? 45 [email or web address] Information not available 02/03/2023 Do You Wear A Helmet When Biking? No Not Applicable [email or web address] Information not available 07/28/2024 Are You Blind Or Do You Have Difficulty Seeing? Yes Cataract In Left Eye, Had Cataract Removal Right Eye And States Now Has A Wrinkle On The Retina. [email or web address] Information not available 07/28/2024 What Is Your Level Of Caffeine Consumption? Occasional [email or web address] Information not available 07/28/2024 How Much Tobacco Do You Chew? None MIGRATION.172 [id number] Information not available 01/28/2023 Are You Deaf Or Do You Have Serious Difficulty Hearing? 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 [email or web address] Information not available 07/28/2024 What Type Of Diet Are You Following? SPECIFIC Renal Information not available 02/03/2023 Which Illicit Or Recreational Drugs Have You Used? Marijuana Quit Approximately 2 Years Prior As Of 07/28/2024 [email or web address] Information not available 07/28/2024 What Is The Highest Grade Or Level Of School You Have Completed Or The Highest Degree You Have Received? [id number] MIGRATION.952 [id number] Information not available 01/28/2023 How Many Days Of Moderate To Strenuous Exercise, Like A Brisk Walk, Did You Do In The Last 7 Days? 0 [email or web address] Information not available 07/28/2024 Have There Been Any Changes To Your Family Or Social Situation? No MIGRATION.541 [id number] Information not available 01/28/2023 What Is The Fluoride Status Of Your Home? Fluoridated [email or web address] Information not available 02/03/2023 Are There Any Guns Present In Your Home? Yes MIGRATION.655 [id number] Information not available 01/28/2023 Do You Use Insect Repellent Routinely? Yes [email or web address] Information not available 07/28/2024 Where Do You Live? [place]House MIGRATION.822 [id number] Information not available 01/28/2023 Presence Of Domestic Violence No [email or web address] Information not available 07/28/2024 Guns Present In The Home? Yes [email or web address] Information not available 07/28/2024 Are You Able To Care For Yourself? Yes [email or web address] Information not available 02/03/2023 Are You Blind Or Do Yo Have Difficulty Seeing? Yes [email or web address] Information not available 07/28/2024 Are You Deaf Or Do You Have Serious Difficulty Hearing? Yes [email or web address] Information not available 02/03/2023 General Stress Level? Moderate [email or web address] Information not available 02/03/2023 Live Alone Of With Others? With Others [email or web address] Information not available 02/03/2023 Are You Following A Low Salt Diet? Yes Information not available 02/03/2023 Do You Have A Medical Power Of Transportation Planner? No MIGRATION.410 [id number] Information not available 01/28/2023 What Was The Date Of Your Most Recent Tobacco Screening? 07/28/2024 [email or web address] Information not available 07/28/2024 How Many Children Do You Have? 3 [email or web address] Information not available 07/28/2024 What Is Your Current Pack Years? 20-29packyears [email or web address] Information not available 02/03/2023 Have You Ever Been Counseled For Unhealthy Alcohol Use? No MIGRATION.989 [id number] Information not available 01/28/2023 Do You Have Any Pets? Yes MIGRATION.285 [id number] Information not available 01/28/2023 What Is Your Relationship Status? MIGRATION.328 [id number] Information not available 01/28/2023 Do You Use Your Seat Belt Or Car Seat Routinely? Yes MIGRATION.627 [id number] Information not available 01/28/2023 Are You Sexually Active? No [email or web address] Information not available 07/28/2024 Do You Have Smoke And Carbon Monoxide Detectors In Your Home? Yes MIGRATION.129 [id number] Information not available 01/28/2023 At What Age Did You Start Smoking Tobacco? 17 MIGRATION.933 [id number] Information not available 01/28/2023 Are You Passively Exposed To Smoke? Yes Spouse Smokes Occasionally [email or web address] Information not available 07/28/2024 Are There Any Smokers In Your House? Yes Spouse Smokes [email or web address] Information not available 07/28/2024 How Much Tobacco Do You Smoke? 1 PPW Does Not Smoke Daily, States 2-3 A Day Is The Max [email or web address] Information not available 07/28/2024 What Types Of Sporting Activities Do You Participate In? None [email or web address] Information not available 07/28/2024 Do You Use Sunscreen Routinely? Yes MIGRATION.439 [id number] Information not available 01/28/2023 Has Tobacco Cessation Counseling Been Provided? Yes [email or web address] Information not available 02/03/2023 On What Date Was Tobacco Cessation Counseling Provided? 02/03/2023 [email or web address] Information not available 02/03/2023 Have You Recently Traveled Abroad? No MIGRATION.190 [id number] Information not available 01/28/2023 Do You Have Difficulty Walking Or Climbing Stairs? No [email or web address] Information not available 07/28/2024 Do You Have Any Dietary Restrictions? Yes Phosphorous [email or web address] Information not available 07/28/2024 How Many Days In The Past Year Have You Consumed 4 Or More Drinks? 0 [email or web address] Information not available 07/28/2024 Sex: Female Functional Status Question Answer Note LastModified by Organizat ion Details LastModified Time Do you use any illicit or recreational drugs? No [email or web address] Information not available 07/28/2024 Do you or have you ever used any other forms of tobacco or nicotine? No [id number] Information not available 01/28/2023 What is your level of alcohol consumption? Occasional MIGRATION.08162 [id number] Information not available 01/28/2023 Are you currently employed? Yes [email or web address] Information not available 07/28/2024 Do you have transportation difficulties? No [email or web address] Information not available 02/03/2023 Are you able to walk? [email or web address] Information not available 02/03/2023 Do you have difficulty doing errands alone? No spouse does therapeutic activities services worker [email or web address] Information not available 07/28/2024 Are you able to care for yourself? 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 No [email or web address] Information not available 02/03/2023 What is your exercise level? None [email or web address] Information not available 07/28/2024 Mental Status Question Answer Note LastModified by Organizat ion Details LastModified Time Do you feel stressed (tense, restless, nervous, or anxious, or unable to sleep at night)? [id number] [email or web address] Information not available 07/28/2024 Do you have difficulty concentrating, remembering or making decisions? No [email or web address] Information no t available 02/03/2023 Family History Relationship Description Onset Age of this Age Resolved Age Notes LastModified by Organization Details LastModified Time Mother Cerebrovascu lar accident [id number] Not available 01/28/2023 04:42:11 Mother Congestive heart failure [id number] Not available 01/28/2023 04:42:11 Father Cerebrovascu lar accident [id number] Not available 01/28/2023 04:42:11 Father Atrial fibrillation [id number] Not available 01/28/2023 04:42:11 Medical History No medical history recorded. Gynecological History Statement/Question Response Date of Last Colonoscopy 07/06/2017 Date of Last Mammogram 07/10/2021 Most Recent Bone Density 07/10/2021 Obstetrics History GPAL:G 0 P 0 0 0 0 Immunizations Vaccine Type Date Status Note Provider Nam e and Address Organization Details Recorded Time pneumococcal conjugate PCV 7 2 completed Not Available [facility] 12/17/2023 21:00:44 SARS-COV-2 (COVID-19) vaccine, UNSPECIFIED 1 completed Not Available [facility] 12/17/2023 21:00:44 SARS-COV-2 (COVID-19) vaccine, UNSPECIFIED 1 completed Not Available [facility] 12/17/2023 21:00:44 pneumococcal polysaccharide PPV23 7 completed Not Available [facility] 12/17/2023 21:00:44 Past Encounters Encounter ID Performer Location Encounter Start Date Encounter Closed Date Diagnosis/Indication Diagnosis SNOMED-CT Code Diagnosis ICD10 Code Diagnosis Note [id number] Amanda Means MD [facility] [address] [place] [address] 04/04/2021 00:00:00 04/04/2021 10:25:14 [id number] Amanda Means MD [facility] Internal [facility] [address] [facility] [place] [address] 08/01/2021 00:00:00 08/01/2021 09:46:22 [id number] Amanda Means MD [facility] Internal Med [address] [facility] [place] [address] 01/10/2022 00:00:00 01/10/2022 12:11:19 [id number] Amanda Means MD [facility] [address] [facility] [place] [address] 05/15/2022 00:00:00 05/15/2022 11:23:13 [id number] Amanda Means MD [facility] Internal Med [address] [facility] [place] [address] 05/27/2022 00:00:00 05/27/2022 12:05:56 [id number] Amanda Measn MD Ole_[facility] Internal [facility] [address] [place] [address]. [place] [address] 06/10/2022 00:00:00 06/10/2022 09:48:38 [id number] MD SILVANA Corcoran_[facility] Internal [facility] [address] [place] [address]. [place] [address] 09/12/2022 00:00:00 09/12/2022 10:46:53 [id number] MD SILVANA Corcoran_[facility] Internal [facility] [address] [place] [address]. [place] [address] 10/10/2022 00:00:00 10/10/2022 09:22:27 [id number] Amanda Means MD [facility] [address] [facility] [place] [address] 02/03/2023 09:11:07 02/03/2023 10:18:38 Adult health examination 147806646 Z00.00 Colonoscop y- 05/06/2017 Mammogram- 07/10/2021 Dexa- 07/10/2021 Pneumovax- 09/01/2017 Prevnar 13- 08/30/2012 FLU- NEVER- Does not wantCOVID- #1- 03/02/21, #2- 03/24/21 Anxiety 75191728 F41.9 meds help Carotid ar janeen stenosis 94715481 I65.29 last dexa 05/21 Cerebrovas cular accident 895892538 I63.9 on asa Diabetes mellitus 837952 09 E11.9 diet controlled Eczema 28666084 L30.9 Essential hypertension 22208054 I10 going to restart doxazocin Hyperlipidemia 73546763 E78.5 labs Kidney disease 51882954 N08 advise to f/u with nephrology Nicotine dependence 5629 4008 F17.200 Osteopenia 859242986 M85 .80 on vit d Peripheral vascular disease 240047051 I73.9 no symptoms Vitamin D deficiency 347 98835 E55.9 Transient cerebral ischemia 049462393 G45.9 no recurrence Screening mammography 24 641978 Z12.31 Postmenopausal state 764 50374 Z78.0 Screening for disorder 391485973 Z13.9 [id number] Amanda Means MD [facility] [address] [place] [address] 02/24/2023 14:02:45 02/24/2023 14:37:42 Essential hypertension 04371764 I10 ^ metoprolol 100 mg qpm, 50 am [id number] Amanda Means MD [facility] [address] [facility] [place] [address] 04/23/2023 14:18:03 04/23/2023 14:45:43 Essential hypertension 62086167 I10 much better Anxiety 90328240 F41.9 needs meds once in a while [id number] Amanda Means MD [facility] [address] 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 yes: Sevelamer 800mgDid you oyster picker your prescripti on(s) and begin taking them [...] s) Greg Pandey RN End-stage renal disease 10372600 N18.6 on HD Anemia 511667932 D64.9 ON IRON Essential hypertension 60721498 I10 much better with meds Insomnia 049246229 G47.0 0 wants to wit for the meds [id number] Amanda Means MD [facility] [address] [place] [address] 11/19/2023 11:43:33 11/19/2023 12:30:34 Anxiety 53355256 F41.9 meds help Carotid ar janeen stenosis 64028270 I65.29 last dopplers 05/21 Cerebrovas cular accident 318691471 I63.9 on asa Diabetes mellitus 510035 09 E11.9 diet controlled , gets labs at nephrology Eczema 19792461 L30.9 Essential hypertension 13313464 I10 under control Hyperlipidemia 64992860 E78.5 under control Nicotine dependence 5629 4008 F17.200 advised to quit Osteopenia 430974560 M85 .80 on vit d Peripheral vascular disease 698741036 I73.9 no symptoms Vitamin D deficiency 347 01871 E55.9 on meds Transient cerebral ischemia 966486884 G45.9 no recurrence Adult heal th examination 980392052 Z00.00 Colonoscop y- 05/06/2017 c, next in 10 yrsLDCT- Due and ordered, wants to waitMammog jose c- 07/10/2021 -DueDexa- 07/10/2021 - DUEPneumov ax- 09/01/2017 Prevnar 13- 08/30/2012 FLU- NEVER- Does not wantCOVID- #1- 03/02/21, #2- 03/24/21 Screening mammography 24 772251 Z12.31 Postmenopausal state 764 19450 Z78.0 Gastrointe stinal hemorrhage 49709170 K92.2 End-stage renal disease 59143270 N18.6 on HD [id number] Amanda Means MD [facility] Internal [facility] [address] [place] [address] 03/23/2024 11:54:57 03/23/2024 12:33:23 Diabetes mellitus 65797728 E11.9 diet controlled , gets labs at nephrology Anxiety 62444413 F41.9 meds help Carotid ar janeen stenosis 59351988 I65.29 needs dopplers Cerebrovas cular accident 046380718 I63.9 on asa Eczema 34887162 L30.9 better Essential hypertension 87668837 I10 under control Hyperlipidemia 63655944 E78.5 under control Nicotine dependence 5629 4008 F17.200 advised to quit Osteopenia 044247198 M85 .80 on vit d Peripheral vascular disease 291738268 I73.9 no symptoms Vitamin D deficiency 347 78737 E55.9 on meds Transient cerebral ischemia 602180503 G45.9 no recurrence Adult heal th examination 760123597 Z00.00 Colonoscop y- 05/06/2017 c, next in 10 yrsLDCT- Due and ordered, wants to waitMammog jose c- 07/10/2021 -DueDexa- 07/10/2021 - DUEPneumov ax- 09/01/2017 Prevnar 08/30/2012 FLU- NEVER- Does not wantCOVID- #1- 03/02/21, #2- 03/24/21 Screening mammography 24 738181 Z12.31 Postmenopausal state 764 09454 Z78.0 Gastrointe stinal hemorrhage 33098251 K92.2 no more, off palvix End-stage renal disease 68036795 N18.6 on dialysis [id number] Amanda Means MD [facility] Internal [facility] [address] [place] [address] 07/28/2024 14:10:57 07/28/2024 15:15:33 Diabetes mellitus 91181651 E11.9 diet controlled , gets labs at nephrology , A1c was 4.9 Anxiety 89482558 F41.9 meds help, sleeps fine Carotid ar janeen stenosis 84429249 I65.29 needs dopplers, has been ordered few times, willing Cerebrovas cular accident 471341416 I63.9 on asa, very functional Eczema 34278163 L30.9 better with cream Essential hypertension 13556356 I10 under control Hyperlipidemia 55374903 E78.5 under control Nicotine dependence 5629 4008 F17.200 advised to quit Osteopenia 821981010 M85 .80 on vit d Peripheral vascular disease 411471389 I73.9 no symptoms Vitamin D deficiency 347 10051 E55.9 on meds Transient cerebral ischemia 440096022 G45.9 no recurrence Adult heal th examination 543812344 Z00.00 Colonoscop y- 05/06/2017 c, next in 10 yrsLDCT- Due and ordered, wants to waitMammog jose c- 07/10/2021 -DueDexa- 07/10/2021 - DUEPneumov ax- 09/01/2017 Prevnar 08/30/2012 FLU- NEVER- Does not wantCOVID- #1- 03/02/21, #2- 03/24/21 Screening mammography 24 274078 Z12.31 Postmenopausal state 764 32585 Z78.0 Gastrointe stinal hemorrhage 47070065 K92.2 no more, off palvix End-stage renal disease 21808414 N18.6 on dialysis Heart murmur 99660579 R0 1.1 Screening for disorder 377946674 Z13.9 [id number] Amanda Means MD [facility] [address] [place] [address] 11/02/2024 14:17:07 11/02/2024 15:12:54 Diabetes mellitus 00433382 E11.9 diet controlled , Anxiety 53763770 F41.9 meds help, sleeps fine Carotid ar janeen stenosis 62901759 I65.29 needs dopplers, has been ordered few times, willing Cerebrovas cular accident 749975115 I63.9 on asa, very functional Eczema 86012267 L30.9 better with cream Essential hypertension 06466497 I10 Hyperlipidemia 53677301 E78.5 under control Nicotine dependence 5629 4008 F17.200 advised to quit Osteopenia 598664278 M85 .80 on vit d Peripheral vascular disease 844491962 I73.9 no symptoms Vitamin D deficiency 347 06086 E55.9 on meds Transient cerebral ischemia 903772123 G45.9 no recurrence Adult heal th examination 208583211 Z00.00 Colonoscop y- 05/06/2017 c, next in 10 yrsLDCT- Due and ordered, wants to waitMammog jose c- 07/10/2021 -DueDexa- 07/10/2021 - DUEPneumov ax- 09/01/2017 Prevnar 13- 08/30/2012 FLU- NEVER- Does not wantCOVID- #1- 03/02/21, #2- 03/24/21 Gastrointe stinal hemorrhage 13478128 K92.2 no more, off palvix End-stage renal disease 24329220 N18.6 on dialysis Heart murmur 16065269 R0 1.1 echo report pending [id number] Amanda Means MD [facility] [address] [place] [address] 03/23/2025 14:18:06 03/23/2025 15:18:08 Diabetes mellitus 43838304 E11.9 diet controlled , Anxiety 56309901 F41.9 meds help, sleeps fine Carotid ar janeen stenosis 59846599 I65.29 on asa Cerebrovas cular accident 144915655 I63.9 on asa, Eczema 28337806 L30.9 better with cream Essential hypertension 33873521 I10 watch, better Hyperlipidemia 66583041 E78.5 under control Nicotine dependence 5629 4008 F17.200 advised to quit Osteopenia 837984834 M85 .80 on vit d Peripheral vascular disease 542468306 I73.9 no symptoms Vitamin D deficiency 347 81234 E55.9 on meds Transient cerebral ischemia 868748924 G45.9 no recurrence Adult heal th examination 091237297 Z00.00 Colonoscop y- 05/06/2017 c, next in 10 yrsLDCT- Due and ordered, wants to waitMammog jose c- 03/17/2025 Dexa- 07/10/2021 - DUEPneumov ax- 09/01/2017 Prevnar 13- 08/30/2012 FLU- NEVER- Does not wantCOVID- #1- 03/02/21, #2- 03/24/21 Gastrointe stinal hemorrhage 99864811 K92.2 no more, off palvix End-stage renal disease 10392512 N18.6 on dialysis Heart murmur 10938882 R0 1.1 mild MR Mass of right breast 113 0899871 5804844 N63.10 getting biopsy Health Concerns Section Related Observation LastModified by Organization Detai ls LastModified Time None Recorded Concern Status LastModified by Organization Details LastModified Time None Recorded Advance Directives Directive N: papers provided 07/28/2024 Payers Encounter Date Sequence Insurance Name Policy Number Policy Mooney Covered Member ID Mooney Member ID Guarantor Name 11/19/2023 1 [place] Camila Layton [id number] Camila Layton 11/19/2023 2 [employer] (MEDICARE SUPPLEMENT) Camila Layton [id number] Camila Layton 03/23/2024 1 [place] Camila Joe Kinjal [id number] Camila Layton 03/23/2024 2 [employer] [place] (MEDICARE SUPPLEMENT) Camila Joe Kinjal [id number] Camila R Kinjal 07/28/2024 1 [place] Camila Joe Kinjal [id number] Camila R Kinjal 07/28/2024 2 [employer] [place] (MEDICARE SUPPLEMENT) Camila R Kinjal [id number] Camila R Kinjal 11/02/2024 1 [place] Camila Joe Kinjal [id number] Camila R Kinjal 11/02/2024 2 [employer] [place] (MEDICARE SUPPLEMENT) Camila R Kinjal [id number] Camila R Kinjal 03/23/2025 1 [place] Cmaila Joe Kinjal [id number] Camila R Kinjal 03/23/2025 2 [employer] (MEDICARE SUPPLEMENT) Camila R Kinjal [id number] Camila R Kinjal Notes Date Note Type Note Provider Name and Address Organization Details Recorded Time 11/19/2023 text/html Doing fine, comp liant to [...] the right legMeds- triamcinolone CVA- Was at [facility] from 05/27- 05/29/Pt had a cerebrovascular accident and her BP was highhas left arm weakness, mild,she had MRI, MRA, ECHO and carotid dopplers while in the hospital Amanda Means MD [address] [facility] [facility] [address], [place], [address], [place] [facility] [employer] 11/19/2023 12:30:03/23/2024 text/html Doing fine, comp liant to medications, [...] the right legMeds- triamcinolone CVA- Was at [facility] from 05/27- 05/29/22Pt had a cerebrovascular accident and her BP was highhas left arm weakness, mild,she had MRI, MRA, ECHO and carotid dopplers while in the hospital Amanda Means MD [address] [facility] [address], [place], [address], [facility] [employer] [facility] 03/23/2024 12:28:06 07/28/2024 text/html Doing fine, comp [...] the right legMeds- triamcinolone CVA- Was at [facility] from 05/27- 05/29/22Pt had a cerebrovascular accident and her BP was highhas left arm weakness, mild,she had MRI, MRA, ECHO and carotid dopplers while in the hospital Amanda Means MD [address], [place], [address], [employer] 07/28/2024 17:36:33 11/02/2024 text/html Doing fine, comp liant to medications, no side affects, here for follow up.PT IS NOT FASTING ( Medicare/ [facility] HTN- high today 180/70- Does feel chest [...] the right legMeds- triamcinolone CVA- Was at [facility] from 05/27- 05/29/22Pt had a cerebrovascular accident and her BP was highhas left arm weakness, mild,she had MRI, MRA, ECHO and carotid dopplers while in the hospital Amanda Means MD [address], [place], [address], [place] [employer] 11/02/2024 14:58:43 03/23/2025 text/html Doing fine, comp liant to medications, no side affects, here for follow up. PT IS NOT FASTING ( Medicare/ [employer]) HTN- on multiple meds, mildly highMeds- Amlodipine 10 mg qd, Telmisartan 80 mg qd, Metoprolol 50mg BID, Doxazosin 4mg daily Hyperlipidemia- under control, not on meds , labs done at HD centreNo longer taking zetia per pt. for no reasonDM- diet controlled, A1C 4.9 (06/2024) by nephrology, watching diet, no meds h/o TIA- ON ASA, no symptoms. ESRD- new since 03/20, Seen Dr. Singer, She is taking Home Peritoneal Dialysis TIDMeds- Vitamin D 50,000u Twice a week, Calcitriol 0.25mg dailyCarotid stenosis- s/p endarterectomy left , carotid duplex 09/22 show ed 60-69% stenosis PVD s/p stent in the right leg, seen dr Moore Smoker- advised to quit-LDCTAnxiety- take xanax few x a month, NEEDS REFILL*Meds- Alprazolam 0.5 mg prn Vit D def- on OTC meds Back pain s/p epidurals in the past, some times gets pain,Meds- OTC prnEczema- uses triamcinolone as needed. rash more on the right legMeds- triamcinolone CVA- Was at [facility] from 05/27- 05/29/22Pt had a cerebrovascular accident and her BP was highhas left arm weakness, mild,she had MRI, MRA, ECHO and carotid dopplers while in the hospital Right breast mass- getting biopsy Amanda Means MD [address] [facility], [place], [address], [place] [facility] [employer] 03/23/2025 14:44:59 OBGyn Episode No OBEpisode recorded.
--- OUTSIDE RECORDS SUMMARY | 2025-05-03 07:19 | XMS_ITS | Clinical Summary ---
Author Organization [facility] Address [address] [place] [address] Care Team Providers Care Day Care Center Director Name Role Phone Vishal Irving MD Unavailable [phone] Source Comments [facility],non-owned Affiliates and Associated Physician Practices is amultiple site organization consisting of ambulatory clinics and hospital sitesin [place], [place], [place] and [place]. This disclosure is being madepursuant to the Care Everywhere program and may not contain all information available regarding this patient. Last updated 18.[facility] [employer] Allergies Active Allergy Reactions Criticality Noted Date Comments Contrast-Iodinated Agents For Ct/Other Urticaria Medium 06/16/2023 Hydralazine Unknown 06/16/2023 Medications * Be aware that medications may not be up to date on this document. Alwaysverify current medications with the patient. aspirin EC (Aspirin 81) 81 MG tablet Take 1 (one) tablet by mouth once daily Active clopidogrel (plaVIX) 75 MG tablet Take 1 (one) tablet by mouth once daily Active triamcinolone acetonide (Kenalog) 0.5 % ointment Apply to affected area 3 times daily Active telmisartan (Micardis) 40 MG tablet Take 1 (one) tablet by mouth once daily Active ezetimibe (Zetia) 10 MG tablet Take 1 (one) tablet by mouth once daily Active Ergocalciferol (VITAMIN D2 PO) Acti ve doxazosin (Cardura) 4 MG tablet Take 1 (one) tablet by mouth at bedtime Active calcitriol (Rocaltrol) 0.25 MCG capsule Take 1 (one) capsule by mouth once daily Active amLODIPine (Norvasc) 10 MG tablet Take 1 (one) tablet by mouth once daily Active metoprolol tartrate IR (Lopressor) 50 MG tablet Take 1 (one) tablet by mouth 2 times daily Active ALPRAZolam (Xanax) 0.5 MG tablet Take 1 (one) tablet by mouth Active Social History Tobacco Use Types Packs/Day Years Used Date Smoking Tobacco: Former Cigarettes Tobacco Cessation:Counseling Given: Not Answered Alcohol Use Standard Drinks/Week Comments Not Currently 0 (1 standard drink = 0.6 oz pur e alcohol) Comments Unknown Sex and Gender Information Value Date Recorded Sex Assigned at Female 07/23/2023 7:39 AM CDT Legal Sex Female 11:17 AM CDT Gender Identity Not on file Sexual Orientation Not on file Last Filed Vital Signs Vital Sign Reading Time Taken Comments Blood Pressure 185/70 07/23/2023 8:58 AM CDT Pulse 65 07/23/2023 8:58 AM CDT Temperature - - Respiratory Rate 11 07/23/2023 8:58 AM CDT Oxygen Saturation 99% 07/23/2023 8:58 AM CDT Inhaled Oxygen Concentration - - Weight - - Height - - Body Mass Index - - Plan of Treatment Health Maintenance Due Date Last Done Comments BONE DENSITY TESTING 1957 COLOGUARD (AGES 45-75) - COL ON CA SCREENING 1957 COLON MONITORING 1957 COLONOSCOPY - COLON CA SCREENING 1957 CT COLONOGRAPHY - COLON CA SCREENING 1957 Colorectal Cancer Screening 1957 FIT - COLON CA SCREENING 1957 FLEX SIG - COLON CA SCREENING 1957 LIPID TESTING 1957 MAMMOGRAM 1957 MEDICARE AWV 12 MONTHS 1957 DTAP/TDAP/TD VACCINES (1 - Tdap) 1976 PNEUMOCOCCAL VACCINE 50+ (1 of 2 - PCV) 1976 HEPATITIS B VACCINE (1 of 3 - Risk Dialysis 4-dose series) 1977 ZOSTER VACCINE (1 of 2) 2007 COVID-19 VACCINE ( - 2023-2 5 season) 2024 DEPRESSION SCREENING 11/30/2024 INFLUENZA VACCINE (Season Ended) 2025 Respiratory Syncytial Virus (RSV) Vaccine Pt: or over 60 yrs (1 - 1-dose 75+ series) 2032 HEPATITIS C SCREENING Completed 05/15/2023 , 05/15/2023 HIB VACCINE Aged Out No longer eligi ble based on patient's age to complete this topic HPV VACCINE Aged Out No longer eligi ble based on patient's age to complete this topic MENINGOCOCCAL (Group B) VACCINE SHARED DECISION-MAKING Aged Out No longer eligible based on patient's age to complete this topic MENINGOCOCCAL GROUPS A/C/Y/W VACCINE Aged Out No longer eligible b ased on patient's age to complete this topic Insurance MEDICARE [facility] MEDICARE [facility] SPECIALTY RISK Care Teams Day Care Center Director Relationship Specialty Start Date End Date Vishal Irving MD [address] [facility] [address] [place] [address] PCP - [facility] 03/30/25
--- OUTSIDE RECORDS SUMMARY | 2025-05-03 07:19 | XMS_ITS | Continuity of Care Document ---
Author Organization [facility] Address [address] [place] [address] [address] [place] [address] Phone Care Team Providers Care Director Of Blood Name Role Phone Radha Manuel Unavailable Unavailable Advance Directives Directive Yes / No Effective Date File Name No Information Encounters Encounter Description Practice Location Reason(s) For Visit Diagnoses Date Provider Providers Copied on Encounter [facility], [address] [place] [address] [address], [place], [place], [address], [place] tel:[phone] [facility] No Information [address] , [address], [place], [address], [place]. tel:[phone] Family History Family Member Type Diagnosis Age At Onset No Information Payers Payer name Insurance type Covered green party ID Authoriza tion(s) No Information Social History Type Description Quantity Date Captured Comments Sex Female Smoking Status No Information Chief Complaint And Reason For Visit No Information Reason For Referral Reason For Referral No Information History Of Present Illness Encounter Date Complaint History Of Prese nt Illness No Information Functional Status Date Functional Assessmen t No Information Instructions Date Instruction Additional Infor mation No Information Assessments Type Assessment Date No Information Patient Care Teams Name Effective Dates (start - stop) Status Members No Information
--- OUTSIDE RECORDS SUMMARY | 2025-05-03 07:19 | XMS_ITS ---
Author Organization [facility] Office Address [address] [facility] [address] [facility] [address] [place] [address] Care Team Providers Care Upper Inspector Name Role Phone Omar Singer Unavailable [phone] Problems Problem Type SNOMED Code ICD Code Onset Dates Problem Status W/U Status Risk Notes Problem Coronary artery disease (47813239) CAD (coronary artery disease) (I25.10) Active confirmed Problem Heart failure, unspecified (I50.9) Active confirmed Encounters Encounter Location Date Provider Diagnosis [place] [facility] [address] [facility] [address] [place] [address] 04/07/2025 Omar Singer Essential (primary) hypertension I10 ; Retention of urine, unspecified R33.9 ; Proteinuria, unspecified R80.9 ; Secondary hyperparathyroidism, not elsewhere classified E21.1 ; Other microscopic hematuria R31.29 ; CAD (coronary artery disease) I25.10 and Heart failure, unspecified I50.9 Assessments Encounter Date Diagnosis (ICD Code) Assessment Notes Treatment Notes Treatment Clinical Notes Section Notes 04/07/2025 Essential (primary) hypertension (ICD-10 - I10) 04/07/2025 Retention of urine, unspecified (ICD-10 - R33.9) 04/07/2025 Proteinuria, unspecified (ICD-10 - R80.9) 04/07/2025 Secondary hyperparathyroidi sm, not elsewhere classified (ICD-10 - E21.1) 04/07/2025 Other microscopic hematuria (ICD-10 - R31.29) 04/07/2025 CAD (coronary artery disease) (ICD-10 - I25.10) 04/07/2025 Heart failure, unspecified (ICD-10 - I50.9) Plan Of Treatment No Information Progress Notes * SAIDA HAMILTONDOB:1955 ( 70 yo F)Acc No.[id number]:04/07/2025 Patient: SAIDA FIELD Provider: Ladonna MARIE MD, F.A.C.P, F.A.S.N. :1955 A ge:70 Y S ex:Female Date:04/07/2025 Address:[place] [address] Subjective: * Chief Complaints: Objective: Assessment: * Assessment: 1. E ssential (primary) hypertension - I10 (Primary) 2 . R etention of urine, unspecified - R33.9 3 . P roteinuria, unspecified - R80.9 4 .?Secondary hyperparathyroidism, not elsewhere classified - E21.1 5 . O ther microscopic hematuria - R31.29 6 . C AD (coronary artery disease) - I25.10 7 . H eart failure, unspecified - I50.9 Plan: * Billing Information: * Visit Code: 78664 Office Visit, Est Pt., Level 4. * Procedure Codes: * Electronic signature of Silvia Singer MD on 05/03/2025 at 07:19 AM CDT Sign off status: Pending * Provider: Ladonna MARIE MD, F.A.C.P, F.A.S.N. Date: 0 04/07/2025 Generated for Printing/Faxing/eTransmitting on: 0 05/03/2025 07:19 AM CDT
--- OUTSIDE RECORDS SUMMARY | 2025-05-03 07:19 | XMS_ITS | Encounter Summary ---
Author Organization [facility] Address [address] [place] [address] Care Team Providers Care Skip Hoist Engineer Name Role Phone Vishal Irving MD Unavailable [phone] Omar Singer MD Unavailable [phone] Vishal Irving MD Unavailable [phone] Encounter Details Date Type Department Care Team (Late st Contact Info) Description 06/16/2023 Telephone [facility] Vascular Services [address] [place] [address], [address] [phone] Paul Iraheta MD Nephrology & Hypertension Spe [address] [place] [address] [phone] Social History Tobacco Use Types Packs/Day Years Used Date Smoking Tobacco: Never Assessed Comments Unknown Sex and Gender Information Value Date Recorded Sex Assigned at Female 07/23/2023 7:39 AM CDT Legal Sex Female 11:17 AM CDT Gender Identity Not on file Sexual Orientation Not on file documented as of this encounter Plan of Treatment Not on file documented as of this encounter Visit Diagnoses Not on filedocumented in this encounter Care Teams Skip Hoist Engineer Relationship Specialty Start Date End Date Vishal Irving MD [address] [facility] [address] [place] [address] PCP - [facility] 09/30/23 09/29/24 [place] [address] [facility] [address] [place] [address] PCP - [facility] 09/30/24 03/29/25 Vishal Irving MD [address] [place] [address] PCP - [facility] 03/30/25 documented as of this encounter
== END 2025-05-03 07:14 | disposition home or self-care (01) ==
LOC: ANHIMG 07:14
PROVIDERS: PCP Internal Medicine; Visit Provider Internal Medicine
DX: C50.411 Malignant neoplasm of upper-outer quadrant of right female breast (principal); R92.8 Other abnormal and inconclusive findings on diagnostic imaging of breast
CPT/HCPCS: 19083; 77065; 88305; 88360; A4648